=== PATIENT | male | born 1975 | race Caucasian/White ===

== ENCOUNTER 2023-07-29 20:05 | Inpatient (IN) | payer MEDICARE, MEDICAID ==
[~2023-07-29] VITALS: Ht 172.7 cm; Wt 67.7 kg
[~2023-07-29 20:05] MED LIST: ALBUAER3 IN; AMLO1TAB22 PO; AZITTAB PO; CARV12.544 PO; CEPH250C PO; ESCI1TAB37 PO; HYDR50TA47 PO; KEP500T PO; SEVE800T8 PO
[2023-07-29 20:33] LABS: Basophils # (auto) 0.1 10 ^3/uL (0-0.2); Basophils % (auto) 2.6 % (0.0-2.0); Eosinophils # (auto) 0.2 10 ^3/uL (0-0.8); Eosinophils % (auto) 3.2 % (0.0-7.0); Hematocrit 32.9 % (41.0-53.0); Hemoglobin 10.3 g/dL (13.5-17.5); Lymphocytes # (auto) 1.1 10 ^3/uL (0.4-5.4); Lymphocytes % (auto) 20.5 % (10.0-50.0); Mean Corpuscular Hemoglobin 29.9 pg (28.0-32.0); Mean Corpuscular Hgb Conc. 31.3 g/dL (32.0-36.0); Mean Corpuscular Volume 95.6 fL (80.0-100.0); Monocytes # (auto) 0.2 10 ^3/uL (0-1.3); Monocytes % (auto) 4.7 % (0.0-12.0); Neutrophils # (auto) 3.6 10 ^3/uL (1.6-8.6); Nucleated Red Blood Cells % 0.3 %; Red Blood Cells 3.45 10^6/uL (4.5-5.90); Red Cell Distribution Width 17.9 % (11.8-14.3); White Blood Cell 5.2 10^3/uL (4.4-10.8)
[2023-07-29 20:55] LABS: Albumin 4.8 g/dL (3.2-4.8); Alkaline Phosphatase 118 U/L (46-116); Anion Gap 13 (5-15); Aspartate Aminotransferase 24 U/L (13-40); Bilirubin, Total 0.4 mg/dL (0.2-1.0); Blood Urea Nitrogen 54 mg/dL (9-23); Calcium 10.1 mg/dL (8.7-10.4); Carbon Dioxide 22 mmol/L (20-30); Chloride 100 mmol/L (98-107); Glucose 92 mg/dL (74-106); Sodium 135 mmol/L (136-145); Total Protein 8.2 g/dL (5.7-8.2)
[2023-07-29 21:02] LABS: Alanine Aminotransferase < 9 U/L (7-40)
[2023-07-29 21:05] LABS: Potassium 6.4 mmol/L (3.5-5.1)
[2023-07-29] MEDS: ALBUTEROL SULF 2.5 MG/0.5ML(0.5%) NEB SOLN NEB ONE (21:44)
[2023-07-29 21:47] VITALS: O2SAT 96
[2023-07-29] MEDS ORDERED: DOCUSATE SOD 100 MG CAP PO PRN (22:00)
[2023-07-29] MEDS ORDERED: ACETAMINOPHEN 325 MG TAB PO PRN (22:00)
[2023-07-29] MEDS ORDERED: ALBUTEROL SULF 2.5 MG/0.5ML(0.5%) NEB SOLN NEB PRN (22:00)
[2023-07-29] MEDS ORDERED: IPRATROPIUM BROM 0.5 MG/2.5ML INH SOL NEB PRN (22:00)
[2023-07-29 22:02] VITALS: BP 161/92; PULSE 73; RESP 20; TEMP 98.3; O2SAT 97
[2023-07-29] MEDS: SODIUM CHLOR 0.9% PF (SALINE LOCK) 10ML VIAL/SYR IV SCH (22:17)
[2023-07-29] MEDS: SODIUM BICARB 8.4% 50Meq/50ml SYR Vial IV ONE (23:29)
[2023-07-29] MEDS: DEXTROSE (50%) 50ML SYRG IV ONE (23:29)
[2023-07-29] MEDS ORDERED: NITROGLYCERIN 0.4 MG SL TAB SL PRN (23:30)
[2023-07-29] MEDS ORDERED: MORPHINE SULFATE INJ 2 MG/ml SYRG IV PRN (23:30)
[2023-07-29] MEDS: CARVEDILOL 12.5 MG TAB PO SCH (23:31)
[2023-07-29] MEDS: InsuLIN REG 1unit/0.01ml Soln (100units/ml) IV ONE (23:31)
[2023-07-29] MEDS: HYDROcodone-ACET 5/325MG TAB PO PRN (23:45)
[2023-07-29] MEDS: CALCIUM GLUC 1,000mg/50ml-NS 50 ML IV ONE (23:45)
[2023-07-30] VITALS (7 sets, daily range): BP systolic 114–164; BP diastolic 74–111; PULSE 68–81; RESP 12–20; TEMP 36.4; O2SAT 91–98
[2023-07-30] MEDS: levETIRAcetam 500 mg/100ml 100 ML IV SCH (00:13)
[2023-07-30] MEDS: MORPHINE SULFATE INJ 2 MG/ml SYRG IV PRN (02:17)
[2023-07-30] MEDS: ONDANSETRON HCL 4 MG/2 ML VIAL IV PRN (02:19)
[2023-07-30] MEDS: diphenhdrAMINE HCL 50 MG/1 ML VL IV ONE ×2 (04:47→10:22)
[2023-07-30 04:50] LABS: Basophils # (auto) 0.1 10 ^3/uL (0-0.2); Eosinophils # (auto) 0.1 10 ^3/uL (0-0.8); Hemoglobin 8.4 g/dL (13.5-17.5); Lymphocytes # (auto) 0.6 10 ^3/uL (0.4-5.4); Neutrophils % (auto) 72.9 % (37.0-80.0)
[2023-07-30 04:53] LABS: Eosinophils % (auto) 2.6 % (0.0-7.0); Hematocrit 25.9 % (41.0-53.0); Lymphocytes % (auto) 14.4 % (10.0-50.0); Mean Corpuscular Hemoglobin 30.8 pg (28.0-32.0); Mean Corpuscular Hgb Conc. 32.4 g/dL (32.0-36.0); Mean Corpuscular Volume 95.1 fL (80.0-100.0); Monocytes # (auto) 0.3 10 ^3/uL (0-1.3); Monocytes % (auto) 8.1 % (0.0-12.0); Nucleated Red Blood Cells % 0.6 %; Red Blood Cells 2.73 10^6/uL (4.5-5.90); Red Cell Distribution Width 17.4 % (11.8-14.3); White Blood Cell 4.1 10^3/uL (4.4-10.8)
[2023-07-30 05:08] LABS: Albumin 3.9 g/dL (3.2-4.8); Alkaline Phosphatase 89 U/L (46-116); Anion Gap 16 (5-15); Aspartate Aminotransferase 18 U/L (13-40); Bilirubin, Total 0.3 mg/dL (0.2-1.0); Calcium 9.3 mg/dL (8.5-10.1); Carbon Dioxide 23 mmol/L (20-30); Chloride 100 mmol/L (98-107); Glucose 70 mg/dL (74-106); Sodium 139 mmol/L (136-145); Total Protein 6.6 g/dL (5.7-8.2)
[2023-07-30 05:16] LABS: Alanine Aminotransferase < 9 U/L (7-40); Blood Urea Nitrogen 72 mg/dL (9-23)
[2023-07-30] MEDS: SODIUM ZIRCONIUM CYCL 10 GM PAK PO ONE (08:34)
[2023-07-30] MEDS: SODIUM BICARB 8.4% 50Meq/50ml SYR INJ IV ONE (08:35)
[2023-07-30] MEDS: CALCIUM GLUC 1,000mg/50ml-NS 50 ML IV ONE (08:35)
[2023-07-30] MEDS: FAMOTIDINE (10MG/ML) 2ML VL IV SCH (09:22)
[2023-07-30] MEDS: DEXTROSE (50%) 50ML SYRG IV ONE (09:33)
[2023-07-30] MEDS: SEVELAMER 800 MG TAB PO SCH (09:34)
[2023-07-30] MEDS: InsuLIN REG 1unit/0.01ml Soln (100units/ml) IV ONE (09:36)
[2023-07-30] MEDS: B-COMPLEX W/ C & FOLIC ACID(NEPHROVITE TAB) PO SCH (10:19)
[2023-07-30] MEDS: ASPirin 81 mg TAB PO SCH (10:21)
[2023-07-30] MEDS: amLODIPine BESYLATE 5 MG TAB PO SCH (10:21)
[2023-07-30] MEDS ORDERED: SODIUM CHL 0.9% 1000 ML BAG XX ONE (12:00)
[2023-07-31 01:00] VITALS: BP 163/80; PULSE 71; RESP 16; TEMP 97.9; O2SAT 97
[2023-07-31 05:00] VITALS: BP 158/89; PULSE 68; RESP 18; TEMP 98.6; O2SAT 99
[2023-07-31 06:53] LABS: Basophils # (auto) 0.1 10 ^3/uL (0-0.2); Basophils % (auto) 2.8 % (0.0-2.0); Eosinophils # (auto) 0.2 10 ^3/uL (0-0.8); Eosinophils % (auto) 3.6 % (0.0-7.0); Hematocrit 29.7 % (41.0-53.0); Hemoglobin 9.5 g/dL (13.5-17.5); Lymphocytes # (auto) 0.7 10 ^3/uL (0.4-5.4); Lymphocytes % (auto) 15.8 % (10.0-50.0); Mean Corpuscular Hemoglobin 30.6 pg (28.0-32.0); Mean Corpuscular Volume 95.7 fL (80.0-100.0); Monocytes # (auto) 0.3 10 ^3/uL (0-1.3); Neutrophils # (auto) 3.2 10 ^3/uL (1.6-8.6); Neutrophils % (auto) 70.8 % (37.0-80.0); Nucleated Red Blood Cells % 0.3 %; White Blood Cell 4.5 10^3/uL (4.4-10.8)
[2023-07-31] MEDS ORDERED: SODIUM CHL 0.9% 1000 ML BAG XX ONE (07:00)
[2023-07-31 07:04] LABS: Alkaline Phosphatase 99 U/L (46-116); Anion Gap 13 (5-15); BUN/Creatinine Ratio 7.4 (10.0-20.0); Calcium 9.2 mg/dL (8.5-10.1); Carbon Dioxide 28 mmol/L (20-30); Chloride 98 mmol/L (98-107); Glucose 63 mg/dL (74-106); Potassium 5.2 mmol/L (3.5-5.1); Sodium 139 mmol/L (136-145)
[2023-07-31 07:05] LABS: Albumin 4.4 g/dL (3.2-4.8); Aspartate Aminotransferase 28 U/L (13-40)
[2023-07-31 07:06] LABS: Bilirubin, Total 0.4 mg/dL (0.2-1.0); Total Protein 7.5 g/dL (5.7-8.2)
[2023-07-31 07:10] LABS: Alanine Aminotransferase < 9 U/L (7-40); Blood Urea Nitrogen 45 mg/dL (9-23)
[2023-07-31 07:12] VITALS: O2SAT 96
[2023-07-31 08:00] VITALS: BP 175/81; PULSE 65; PULSE 68; RESP 20; TEMP 97.5; O2SAT 94
[2023-07-31] MEDS: hydrALAZINE HCL 20 MG/ML VL IV PRN (08:15)
[2023-07-31 12:00] VITALS: BP 139/78; PULSE 64; RESP 22; TEMP 97.5; O2SAT 95
[2023-07-31] MEDS: diphenhdrAMINE HCL 50 MG/1 ML VL IV ONE ×2 (14:15→15:43)
[2023-07-31 16:00] VITALS: BP 163/77; PULSE 65; RESP 18; TEMP 98.1; O2SAT 92
[2023-07-31] MEDS ORDERED: EPOETIN ALFA-EPBX 10,000 UNIT/1ML VIAL SC ONE (21:00)
== END 2023-07-31 21:30 | disposition home or self-care (01) | DRG 640 ==
LOC: ER 20:05 → TELE 23:27 → TELE-WESTW 07-30 11:00
PROVIDERS: ADMIT Internal Medicine; ATTEND Internal Medicine
PROC: 5A1D70Z Performance of Urinary Filtration, Intermittent, Less than 6 Hours Per Day (ICD-10-PCS; principal; 2023-07-30)
PROC: 5A1D70Z Performance of Urinary Filtration, Intermittent, Less than 6 Hours Per Day (ICD-10-PCS; 2023-07-31)
DX: E87.70 Fluid overload, unspecified (principal); I50.33 Acute on chronic diastolic (congestive) heart failure; N18.6 End stage renal disease; J96.01 Acute respiratory failure with hypoxia; I13.2 Hypertensive heart and chronic kidney disease with heart failure and with stage 5 chronic kidney disease, or end stage renal disease; J81.1 Chronic pulmonary edema; E87.20 Acidosis, unspecified; J44.9 Chronic obstructive pulmonary disease, unspecified; E87.5 Hyperkalemia; G40.909 Epilepsy, unspecified, not intractable, without status epilepticus; I16.0 Hypertensive urgency; D63.1 Anemia in chronic kidney disease; Z86.73 Personal history of transient ischemic attack (TIA), and cerebral infarction without residual deficits; Z99.2 Dependence on renal dialysis; Z91.158 Patient's noncompliance with renal dialysis for other reason; Z88.0 Allergy status to penicillin; Z88.1 Allergy status to other antibiotic agents; I25.2 Old myocardial infarction; Z98.61 Coronary angioplasty status; Z87.891 Personal history of nicotine dependence; Z82.49 Family history of ischemic heart disease and other diseases of the circulatory system
CPT/HCPCS: 36415; 71045; 80053; 82962; 83036; 83880; 84100; 84132; 84484; 85025; 87081; 90935; 93005; 94640; 99291; G0378; J1815; J2405; J3490

== ENCOUNTER 2023-08-12 13:23 | Inpatient (IN) | payer MEDICARE, MEDICAID ==
[2023-08-12] VITALS (7 sets, daily range): BP systolic 101–162; BP diastolic 54–97; PULSE 80–97; RESP 11–20; TEMP 97.8–98.2; O2SAT 94–98
[~2023-08-12] VITALS: Ht 165.1 cm; Wt 64.1 kg
[2023-08-12] MEDS: SALINE 0.65 % NASAL SPRAY 45ML BOTTLE EACHNOSTRI ONE (14:45)
[2023-08-12] MEDS: HYDROcodone-ACET 10/325MG TAB PO ONE (14:45)
[2023-08-12] MEDS: PHENYLEPHRINE HCL 0.5 % NASAL SPRAY 15ML ONE (14:52)
[2023-08-12 15:00] LABS: Basophils # (auto) 0.1 10 ^3/uL (0-0.2); Eosinophils # (auto) 0.1 10 ^3/uL (0-0.8); Lymphocytes # (auto) 0.6 10 ^3/uL (0.4-5.4); Monocytes # (auto) 0.3 10 ^3/uL (0-1.3); Neutrophils # (auto) 2.4 10 ^3/uL (1.6-8.6); Red Cell Distribution Width 16.5 % (11.8-14.3); White Blood Cell 3.5 10^3/uL (4.4-10.8)
[2023-08-12 15:02] LABS: Basophils % (auto) 2.9 % (0.0-2.0); Eosinophils % (auto) 3.3 % (0.0-7.0); Hematocrit 22.2 % (41.0-53.0); Hemoglobin 7.2 g/dL (13.5-17.5); Lymphocytes % (auto) 18.1 % (10.0-50.0); Mean Corpuscular Hemoglobin 30.4 pg (28.0-32.0); Mean Corpuscular Hgb Conc. 32.6 g/dL (32.0-36.0); Mean Corpuscular Volume 93.2 fL (80.0-100.0); Monocytes % (auto) 8.4 % (0.0-12.0); Neutrophils % (auto) 67.3 % (37.0-80.0); Nucleated Red Blood Cells % 0.3 %; Red Blood Cells 2.38 10^6/uL (4.5-5.90)
[2023-08-12 15:17] LABS: INR 1.03 (0.9-1.15); Partial Thromboplastin Time 23.3 SEC (24.5-34.5); Prothrombin Time 10.9 sec (9.3-11.8)
[2023-08-12 15:18] LABS: Albumin 4.1 g/dL (3.2-4.8); Alkaline Phosphatase 103 U/L (46-116); Anion Gap 9 (5-15); Aspartate Aminotransferase 26 U/L (13-40); BUN/Creatinine Ratio 7.1 (10.0-20.0); Blood Urea Nitrogen 30 mg/dL (9-23); Calcium 9.9 mg/dL (8.5-10.1); Carbon Dioxide 33 mmol/L (20-30); Chloride 97 mmol/L (98-107); Glucose 85 mg/dL (74-106); Potassium 4.3 mmol/L (3.5-5.1); Sodium 139 mmol/L (136-145)
[2023-08-12 15:19] LABS: Bilirubin, Total 0.4 mg/dL (0.2-1.0)
[2023-08-12 15:21] LABS: Alanine Aminotransferase < 9 U/L (7-40)
[2023-08-12] MEDS ORDERED: NITROGLYCERIN 0.4 MG SL TAB SL PRN (18:45)
[2023-08-12] MEDS ORDERED: ALBUTEROL SULF HFA 90MCG INH 200DOSE IN PRN (18:45)
[2023-08-12] MEDS ORDERED: MORPHINE SULFATE INJ 2 MG/ml SYRG IV PRN (18:45)
[2023-08-12] MEDS: CYCLOBENZAPRINE HCL 10 MG TAB PO ONE (19:01)
[2023-08-12 19:10] LABS: Hematocrit 21.4 % (41.0-53.0)
[2023-08-12] MEDS: PATIENTS OWN MEDICATION (Sevelamer Carbonate (Renvela) 800 MG) PO SCH (19:11)
[2023-08-12 19:13] LABS: Hemoglobin 6.8 g/dL (13.5-17.5)
[2023-08-12 19:19] LABS: Ferritin 553.6 ng/mL (22-322)
[2023-08-12] MEDS ORDERED: ALBUTEROL SULF 2.5 MG/0.5ML(0.5%) NEB SOLN NEB PRN (19:30)
[2023-08-12] MEDS: FUROSEMIDE 20 MG/2 ML VIAL IV ONE (20:19)
[2023-08-12] MEDS: LORazepam 2MG/ML-1ML VIAL IV ONE (20:19)
[2023-08-12] MEDS: CARVEDILOL 12.5 MG TAB PO SCH (22:13)
[2023-08-13] VITALS (13 sets, daily range): BP systolic 138–192; BP diastolic 74–108; PULSE 60–83; RESP 15–80; TEMP 36.5; O2SAT 92–100
[2023-08-13] MEDS: FLUMAZENIL 0.1 MG/ML INJ 10ML MDV IV ONE (04:31)
[2023-08-13 06:38] LABS: Basophils # (auto) 0.1 10 ^3/uL (0-0.2); Eosinophils # (auto) 0.1 10 ^3/uL (0-0.8); Hemoglobin 7.6 g/dL (13.5-17.5); Monocytes # (auto) 0.3 10 ^3/uL (0-1.3); Neutrophils # (auto) 2.4 10 ^3/uL (1.6-8.6); White Blood Cell 3.5 10^3/uL (4.4-10.8)
[2023-08-13 06:43] LABS: Basophils % (auto) 2.6 % (0.0-2.0); Hematocrit 23.6 % (41.0-53.0); Lymphocytes # (auto) 0.6 10 ^3/uL (0.4-5.4); Lymphocytes % (auto) 17.7 % (10.0-50.0); Mean Corpuscular Hemoglobin 29.8 pg (28.0-32.0); Mean Corpuscular Hgb Conc. 32.4 g/dL (32.0-36.0); Neutrophils % (auto) 67.7 % (37.0-80.0); Nucleated Red Blood Cells % 0.1 %; Red Blood Cells 2.56 10^6/uL (4.5-5.90); Red Cell Distribution Width 15.9 % (11.8-14.3)
[2023-08-13] MEDS ORDERED: PATIENTS OWN MEDICATION (Escitalopram Oxalate 20 MG) PO SCH (10:00)
[2023-08-13] MEDS: amLODIPine BESYLATE 5 MG TAB PO SCH (10:06)
[2023-08-13] MEDS: levETIRAcetam 500 MG TAB PO SCH (10:06)
[2023-08-13] MEDS: CITALOPRAM HYDROBR 20 MG TAB PO SCH (10:06)
[2023-08-13] MEDS: FUROSEMIDE 20 MG/2 ML VIAL IV SCH (10:07)
[2023-08-13 12:12] LABS: Hematocrit 23.2 % (41.0-53.0); Hemoglobin 7.8 g/dL (13.5-17.5)
[2023-08-13 12:44] LABS: Hepatitis B Surface Antigen Negative (Negative)
[2023-08-13 13:05] LABS: Hepatitis C Antibody Negative (Negative)
[2023-08-13 15:23] LABS: % Iron Saturation 39.9 % (20-55)
[2023-08-13 15:40] LABS: Folate (Folic Acid) 20.9 ng/mL (>5.38)
[2023-08-13 16:29] LABS: Hematocrit 23.6 % (41.0-53.0)
[2023-08-13 16:32] LABS: Hemoglobin 7.8 g/dL (13.5-17.5)
[2023-08-13] MEDS ORDERED: SODIUM CHL 0.9% 1000 ML BAG XX ONE (16:58)
[2023-08-13] MEDS ORDERED: hydrALAZINE HCL 20 MG/ML VL IV PRN (20:15)
[2023-08-13] MEDS: EPOETIN ALFA-EPBX 4,000 UNIT/ML VIAL SC ONE (21:24)
[2023-08-13] MEDS: hydrALAZINE HCL 25 MG TAB PO SCH (23:29)
[2023-08-14] VITALS (9 sets, daily range): BP systolic 135–180; BP diastolic 61–94; PULSE 63–70; RESP 16–69; TEMP 97.8–98.8; O2SAT 94–100
[2023-08-14] MEDS: diphenhdrAMINE HCL 25 MG CAP PO ONE (03:32)
[2023-08-14] MEDS ORDERED: SODIUM CHL 0.9% 1000 ML BAG XX ONE (07:00)
[2023-08-14] MEDS: diphenhdrAMINE HCL 50 MG/1 ML VL IV ONE (08:04)
[2023-08-14] MEDS: SEVELAMER 800 MG TAB PO SCH (09:34)
[2023-08-14 12:19] LABS: Basophils # (auto) 0.1 10 ^3/uL (0-0.2); Eosinophils # (auto) 0.1 10 ^3/uL (0-0.8); Lymphocytes # (auto) 0.5 10 ^3/uL (0.4-5.4); Monocytes # (auto) 0.2 10 ^3/uL (0-1.3); Nucleated Red Blood Cells % 0.1 %
[2023-08-14 12:22] LABS: Basophils % (auto) 2.4 % (0.0-2.0); Eosinophils % (auto) 4.1 % (0.0-7.0); Hematocrit 23.7 % (41.0-53.0); Hemoglobin 7.7 g/dL (13.5-17.5); Lymphocytes % (auto) 15.9 % (10.0-50.0); Mean Corpuscular Hemoglobin 30.3 pg (28.0-32.0); Mean Corpuscular Hgb Conc. 32.7 g/dL (32.0-36.0); Mean Corpuscular Volume 92.7 fL (80.0-100.0); Neutrophils % (auto) 69.6 % (37.0-80.0); Red Blood Cells 2.55 10^6/uL (4.5-5.90); White Blood Cell 2.9 10^3/uL (4.4-10.8)
[2023-08-14 12:32] LABS: Albumin 3.8 g/dL (3.2-4.8); Alkaline Phosphatase 89 U/L (46-116); Anion Gap 5 (5-15); Aspartate Aminotransferase 23 U/L (13-40); BUN/Creatinine Ratio 4.2 (10.0-20.0); Blood Urea Nitrogen 9 mg/dL (9-23); Calcium 9.4 mg/dL (8.5-10.1); Carbon Dioxide 33 mmol/L (20-30); Chloride 104 mmol/L (98-107); Glucose 89 mg/dL (74-106); Magnesium 2.1 mg/dL (1.6-2.6); Sodium 142 mmol/L (136-145); Total Protein 6.3 g/dL (5.7-8.2)
[2023-08-14 12:35] LABS: Alanine Aminotransferase < 9 U/L (7-40)
[2023-08-14 12:39] LABS: Bilirubin, Total 0.3 mg/dL (0.2-1.0)
[2023-08-14] MEDS: ACETAMINOPHEN 325 MG TAB PO PRN (18:02)
[2023-08-14] MEDS: HYDROcodone-ACET 5/325MG TAB PO PRN (22:22)
[2023-08-15 01:00] VITALS: BP 169/76; PULSE 64; RESP 18; TEMP 98; O2SAT 98
[2023-08-15 05:00] VITALS: BP 157/76; PULSE 65; RESP 20; TEMP 98; O2SAT 98
[2023-08-15 07:03] LABS: Basophils # (auto) 0.1 10 ^3/uL (0-0.2); Hemoglobin 8.1 g/dL (13.5-17.5); Monocytes # (auto) 0.3 10 ^3/uL (0-1.3); Red Blood Cells 2.68 10^6/uL (4.5-5.90)
[2023-08-15 07:05] LABS: Basophils % (auto) 2.5 % (0.0-2.0); Eosinophils # (auto) 0.2 10 ^3/uL (0-0.8); Lymphocytes # (auto) 0.7 10 ^3/uL (0.4-5.4); Lymphocytes % (auto) 24.6 % (10.0-50.0); Mean Corpuscular Hemoglobin 30.2 pg (28.0-32.0); Mean Corpuscular Hgb Conc. 32.4 g/dL (32.0-36.0); Mean Corpuscular Volume 93.3 fL (80.0-100.0); Monocytes % (auto) 8.8 % (0.0-12.0); Neutrophils # (auto) 1.8 10 ^3/uL (1.6-8.6); Neutrophils % (auto) 59.1 % (37.0-80.0); Red Cell Distribution Width 16.8 % (11.8-14.3)
[2023-08-15 07:10] VITALS: O2SAT 99
[2023-08-15 07:22] LABS: Anion Gap 8 (5-15); Calcium 9.3 mg/dL (8.5-10.1); Carbon Dioxide 31 mmol/L (20-30); Chloride 104 mmol/L (98-107); Potassium 4.5 mmol/L (3.5-5.1); Sodium 143 mmol/L (136-145)
[2023-08-15 07:28] LABS: BUN/Creatinine Ratio 4.7 (10.0-20.0); Blood Urea Nitrogen 20 mg/dL (9-23); Glucose 83 mg/dL (74-106)
[2023-08-15 08:00] VITALS: BP 166/78; PULSE 60; PULSE 73; RESP 18; TEMP 97.7; O2SAT 100
[2023-08-15 09:05] VITALS: BP 166/78; PULSE 73; RESP 18; TEMP 97.7; O2SAT 100
[2023-08-15] MEDS: diphenhdrAMINE HCL 50 MG/1 ML VL IV ONE (11:02)
[2023-08-15 12:30] VITALS: BP 149/70; PULSE 71; RESP 18; TEMP 97.7; O2SAT 94
== END 2023-08-15 16:45 | disposition home or self-care (01) | DRG 150 ==
LOC: ER 13:23 → TELE 18:40 → TELE-WESTW 08-13 09:36
PROVIDERS: ADMIT Internal Medicine Geriatric Medicine; ATTEND Internal Medicine Geriatric Medicine
PROC: 30233N1 Transfusion of Nonautologous Red Blood Cells into Peripheral Vein, Percutaneous Approach (ICD-10-PCS; principal; 2023-08-12)
PROC: 5A1D70Z Performance of Urinary Filtration, Intermittent, Less than 6 Hours Per Day (ICD-10-PCS; 2023-08-13)
PROC: 5A1D70Z Performance of Urinary Filtration, Intermittent, Less than 6 Hours Per Day (ICD-10-PCS; 2023-08-14)
DX: R04.0 Epistaxis (principal); N18.6 End stage renal disease; D62 Acute posthemorrhagic anemia; N25.81 Secondary hyperparathyroidism of renal origin; I13.2 Hypertensive heart and chronic kidney disease with heart failure and with stage 5 chronic kidney disease, or end stage renal disease; I50.42 Chronic combined systolic (congestive) and diastolic (congestive) heart failure; J96.11 Chronic respiratory failure with hypoxia; D63.1 Anemia in chronic kidney disease; J44.9 Chronic obstructive pulmonary disease, unspecified; E87.5 Hyperkalemia; I25.119 Atherosclerotic heart disease of native coronary artery with unspecified angina pectoris; G40.909 Epilepsy, unspecified, not intractable, without status epilepticus; I16.0 Hypertensive urgency; Z99.2 Dependence on renal dialysis; Z99.81 Dependence on supplemental oxygen; Z88.0 Allergy status to penicillin; Z86.73 Personal history of transient ischemic attack (TIA), and cerebral infarction without residual deficits; Z98.61 Coronary angioplasty status; I25.2 Old myocardial infarction; Z82.49 Family history of ischemic heart disease and other diseases of the circulatory system; Z88.8 Allergy status to other drugs, medicaments and biological substances
CPT/HCPCS: 36415; 71045; 80048; 80053; 82607; 82728; 82746; 82962; 83540; 83550; 83615; 83735; 83880; 84484; 85014; 85018; 85025; 85045; 85384; 85610; 85730; 86803; 86850; 86900; 86901; 86920; 87081; 87340; 90935; G0378

== ENCOUNTER 2023-08-20 12:09 | Inpatient (IN) | payer MEDICARE, MEDICAID ==
[~2023-08-20] VITALS: Ht 172.7 cm; Wt 61.6 kg
[~2023-08-20 12:09] MED LIST changes: -AZITTAB PO; -CEPH250C PO
[2023-08-20] MEDS ORDERED: SODIUM CHLORIDE 0.9% 1,000 ML IV ONE ×2 (14:00)
[2023-08-20 14:10] LABS: Basophils # (auto) 0.1 10 ^3/uL (0-0.2); Basophils % (auto) 2.9 % (0.0-2.0); Eosinophils # (auto) 0.1 10 ^3/uL (0-0.8); Eosinophils % (auto) 3.9 % (0.0-7.0); Hematocrit 24.1 % (41.0-53.0); Hemoglobin 7.4 g/dL (13.5-17.5); Lymphocytes # (auto) 0.8 10 ^3/uL (0.4-5.4); Lymphocytes % (auto) 21.8 % (10.0-50.0); Mean Corpuscular Hemoglobin 29.4 pg (28.0-32.0); Mean Corpuscular Hgb Conc. 30.8 g/dL (32.0-36.0); Mean Corpuscular Volume 95.5 fL (80.0-100.0); Monocytes # (auto) 0.3 10 ^3/uL (0-1.3); Neutrophils # (auto) 2.4 10 ^3/uL (1.6-8.6); Neutrophils % (auto) 64.4 % (37.0-80.0); Nucleated Red Blood Cells % 0.1 %; Red Blood Cells 2.52 10^6/uL (4.5-5.90); Red Cell Distribution Width 17.8 % (11.8-14.3); White Blood Cell 3.7 10^3/uL (4.4-10.8)
[2023-08-20 14:26] LABS: INR 1.05 (0.9-1.15); Partial Thromboplastin Time 29.3 SEC (24.5-34.5); Prothrombin Time 11.1 sec (9.3-11.8)
[2023-08-20 15:31] LABS: Albumin 4.1 g/dL (3.2-4.8); Alkaline Phosphatase 92 U/L (46-116); Anion Gap 10 (5-15); Aspartate Aminotransferase 21 U/L (13-40); BUN/Creatinine Ratio 9.8 (10.0-20.0); Blood Urea Nitrogen 63 mg/dL (9-23); Calcium 9.1 mg/dL (8.5-10.1); Carbon Dioxide 28 mmol/L (20-30); Chloride 99 mmol/L (98-107); Glucose 78 mg/dL (74-106); Sodium 137 mmol/L (136-145)
[2023-08-20 15:32] LABS: Alanine Aminotransferase < 9 U/L (7-40); Bilirubin, Total 0.3 mg/dL (0.2-1.0); Total Protein 6.9 g/dL (5.7-8.2)
[2023-08-20 15:36] LABS: Potassium 5.7 mmol/L (3.5-5.1)
[2023-08-20] MEDS ORDERED: ACETAMINOPHEN 325 MG TAB PO PRN (16:30)
[2023-08-20] MEDS ORDERED: DOCUSATE SOD 100 MG CAP PO PRN (16:30)
[2023-08-20] MEDS ORDERED: MORPHINE SULFATE INJ 2 MG/ml SYRG IV PRN (16:30)
[2023-08-20] MEDS ORDERED: NITROGLYCERIN 0.4 MG SL TAB SL PRN (16:30)
[2023-08-20] MEDS: ALBUTEROL SULF 2.5 MG/0.5ML(0.5%) NEB SOLN NEB ONE (16:59)
[2023-08-20] MEDS ORDERED: IPRATROPIUM BROM 0.5 MG/2.5ML INH SOL NEB PRN (17:45)
[2023-08-20] MEDS ORDERED: ALBUTEROL SULF 2.5 MG/0.5ML(0.5%) NEB SOLN NEB PRN (17:45)
[2023-08-20 19:20] VITALS: O2SAT 99
[2023-08-20 19:45] VITALS: PULSE 71; RESP 20; O2SAT 98
[2023-08-20 20:00] VITALS: BP 157/85; PULSE 77; RESP 18; TEMP 98.6; O2SAT 99
[2023-08-20] MEDS: CALCIUM GLUC 1,000mg/50ml-NS 50 ML IV ONE (21:32)
[2023-08-20] MEDS: SODIUM ZIRCONIUM CYCL 10 GM PAK PO ONE (21:38)
[2023-08-20] MEDS: OXYMETAZOLINE HCL 0.05 % NASAL SPRAY 15ML EACHNOSTRI ONE (21:39)
[2023-08-20] MEDS: SEVELAMER 800 MG TAB PO SCH (21:45)
[2023-08-20] MEDS: PANTOPRAZOLE 40 MG/10 ML VIAL INJ IV ONE (21:46)
[2023-08-20] MEDS: HYDROcodone-ACET 5/325MG TAB PO PRN (21:46)
[2023-08-20] MEDS: FUROSEMIDE 40 MG/4 ML VIAL IV ONE (21:47)
[2023-08-20] MEDS: diphenhdrAMINE HCL 50 MG/1 ML VL IV ONE (21:48)
[2023-08-20] MEDS: CARVEDILOL 12.5 MG TAB PO SCH (22:43)
[2023-08-20] MEDS: hydrALAZINE HCL 25 MG TAB PO SCH (22:44)
[2023-08-20 23:36] LABS: Hematocrit 19.7 % (41.0-53.0); Hemoglobin 6.3 g/dL (13.5-17.5)
[2023-08-21] VITALS (14 sets, daily range): BP systolic 127–183; BP diastolic 74–95; PULSE 66–96; RESP 16–22; TEMP 96.9–98.6; O2SAT 91–98
[2023-08-21] MEDS: ONDANSETRON HCL 4 MG/2 ML VIAL IV PRN (05:52)
[2023-08-21] MEDS: MORPHINE SULFATE INJ 2 MG/ml SYRG IV PRN (05:53)
[2023-08-21 09:14] LABS: Basophils # (auto) 0.1 10 ^3/uL (0-0.2); Eosinophils # (auto) 0.1 10 ^3/uL (0-0.8); Lymphocytes # (auto) 0.7 10 ^3/uL (0.4-5.4); Monocytes # (auto) 0.2 10 ^3/uL (0-1.3); Neutrophils # (auto) 2.5 10 ^3/uL (1.6-8.6); Nucleated Red Blood Cells % 0.1 %
[2023-08-21 09:16] LABS: Basophils % (auto) 2.7 % (0.0-2.0); Eosinophils % (auto) 2.9 % (0.0-7.0); Hematocrit 19.4 % (41.0-53.0); Lymphocytes % (auto) 18.4 % (10.0-50.0); Mean Corpuscular Hemoglobin 30.3 pg (28.0-32.0); Mean Corpuscular Hgb Conc. 33.1 g/dL (32.0-36.0); Mean Corpuscular Volume 91.5 fL (80.0-100.0); Monocytes % (auto) 6.6 % (0.0-12.0); Neutrophils % (auto) 69.4 % (37.0-80.0); Red Blood Cells 2.13 10^6/uL (4.5-5.90); Red Cell Distribution Width 16.7 % (11.8-14.3); White Blood Cell 3.6 10^3/uL (4.4-10.8)
[2023-08-21 09:21] LABS: Hemoglobin 6.4 g/dL (13.5-17.5)
[2023-08-21 09:32] LABS: Alkaline Phosphatase 71 U/L (46-116); Anion Gap 10 (5-15); Aspartate Aminotransferase 14 U/L (13-40); BUN/Creatinine Ratio 12.1 (10.0-20.0); Calcium 8.8 mg/dL (8.5-10.1); Carbon Dioxide 29 mmol/L (20-30); Chloride 101 mmol/L (98-107); Glucose 80 mg/dL (74-106); Sodium 140 mmol/L (136-145)
[2023-08-21 09:33] LABS: Albumin 3.5 g/dL (3.2-4.8); Bilirubin, Total 0.3 mg/dL (0.2-1.0); Total Protein 5.7 g/dL (5.7-8.2)
[2023-08-21 09:42] LABS: Platelet Estimate Decreased
[2023-08-21 09:45] LABS: Stomatocytes Few
[2023-08-21 10:00] LABS: Alanine Aminotransferase < 9 U/L (7-40)
[2023-08-21] MEDS ORDERED: amLODIPine BESYLATE 5 MG TAB PO SCH (10:00)
[2023-08-21 10:01] LABS: Blood Urea Nitrogen 91 mg/dL (9-23)
[2023-08-21] MEDS: CITALOPRAM HYDROBR 20 MG TAB PO SCH (11:04)
[2023-08-21] MEDS: PANTOPRAZOLE 40 MG/10 ML VIAL INJ IV SCH (11:05)
[2023-08-21] MEDS: levETIRAcetam 500 MG TAB PO SCH (11:05)
[2023-08-21] MEDS: PANTOPRAZOLE 40 MG TAB PO ONE (11:30)
[2023-08-21] MEDS: SODIUM ZIRCONIUM CYCL 10 GM PAK PO ONE (12:45)
[2023-08-21] MEDS ORDERED: SODIUM CHL 0.9% 1000 ML BAG XX ONE (13:15)
[2023-08-21] MEDS: hydrALAZINE HCL 25 MG TAB PO SCH (14:00)
[2023-08-21 15:15] LABS: Hemoglobin 6.9 g/dL (13.5-17.5)
[2023-08-21] MEDS: LORazepam 0.5 MG TAB PO ONE (20:22)
[2023-08-21] MEDS: EPOETIN ALFA-EPBX 10,000 UNIT/1ML VIAL SC ONE (21:15)
[2023-08-21] MEDS: CARVEDILOL 12.5 MG TAB PO SCH (21:16)
[2023-08-22] VITALS (14 sets, daily range): BP systolic 100–147; BP diastolic 53–78; PULSE 62–107; RESP 14–22; TEMP 97.4–98.3; O2SAT 95–100
[2023-08-22 06:27] LABS: Basophils # (auto) 0.1 10 ^3/uL (0-0.2); Eosinophils # (auto) 0.1 10 ^3/uL (0-0.8); Lymphocytes # (auto) 0.6 10 ^3/uL (0.4-5.4); Monocytes # (auto) 0.2 10 ^3/uL (0-1.3); Nucleated Red Blood Cells % 0.1 %
[2023-08-22 06:31] LABS: Basophils % (auto) 2.6 % (0.0-2.0); Eosinophils % (auto) 3.4 % (0.0-7.0); Hematocrit 20.4 % (41.0-53.0); Lymphocytes % (auto) 18.3 % (10.0-50.0); Mean Corpuscular Hemoglobin 30.2 pg (28.0-32.0); Mean Corpuscular Hgb Conc. 33.2 g/dL (32.0-36.0); Mean Corpuscular Volume 90.8 fL (80.0-100.0); Monocytes % (auto) 7.2 % (0.0-12.0); Neutrophils # (auto) 2.1 10 ^3/uL (1.6-8.6); Neutrophils % (auto) 68.5 % (37.0-80.0); Red Blood Cells 2.25 10^6/uL (4.5-5.90); Red Cell Distribution Width 15.9 % (11.8-14.3); White Blood Cell 3.1 10^3/uL (4.4-10.8)
[2023-08-22 06:39] LABS: Chloride 100 mmol/L (98-107); Potassium 4.5 mmol/L (3.5-5.1); Sodium 138 mmol/L (136-145)
[2023-08-22 06:40] LABS: Anion Gap 7 (5-15); Carbon Dioxide 31 mmol/L (20-30); Hemoglobin 6.8 g/dL (13.5-17.5)
[2023-08-22 06:45] LABS: BUN/Creatinine Ratio 8.9 (10.0-20.0); Glucose 85 mg/dL (74-106)
[2023-08-22 06:50] LABS: Blood Urea Nitrogen 47 mg/dL (9-23)
[2023-08-22 10:51] LABS: % Iron Saturation 17.8 % (20-55)
[2023-08-22] MEDS: amLODIPine BESYLATE 5 MG TAB PO SCH (11:29)
[2023-08-22] MEDS: PANTOPRAZOLE 40 MG TAB PO SCH (11:29)
[2023-08-22] MEDS: diphenhdrAMINE HCL 50 MG/1 ML VL IM ONE (13:40)
[2023-08-22] MEDS ORDERED: MORPHINE SULFATE 4 MG/ML SYR/VIAL IV PRN (20:30)
[2023-08-22] MEDS: MORPHINE SULFATE 4 MG/ML SYR/VIAL IV PRN (21:40)
[2023-08-23] VITALS (8 sets, daily range): BP systolic 113–147; BP diastolic 56–76; PULSE 64–77; RESP 16–20; TEMP 97.3–98.4; O2SAT 97–100
[2023-08-23] MEDS: SODIUM CHL 0.9% 1000 ML BAG XX ONE (08:35)
[2023-08-23 09:00] LABS: Basophils # (auto) 0.1 10 ^3/uL (0-0.2); Eosinophils # (auto) 0.2 10 ^3/uL (0-0.8); Hemoglobin 7.5 g/dL (13.5-17.5); Mean Corpuscular Hemoglobin 30.4 pg (28.0-32.0); Monocytes # (auto) 0.4 10 ^3/uL (0-1.3)
[2023-08-23 09:02] LABS: Basophils % (auto) 1.8 % (0.0-2.0); Eosinophils % (auto) 3.6 % (0.0-7.0); Hematocrit 22.5 % (41.0-53.0); Lymphocytes # (auto) 0.6 10 ^3/uL (0.4-5.4); Lymphocytes % (auto) 12.9 % (10.0-50.0); Mean Corpuscular Hgb Conc. 33.3 g/dL (32.0-36.0); Mean Corpuscular Volume 91.3 fL (80.0-100.0); Monocytes % (auto) 7.7 % (0.0-12.0); Neutrophils # (auto) 3.7 10 ^3/uL (1.6-8.6); Red Blood Cells 2.46 10^6/uL (4.5-5.90); Red Cell Distribution Width 15.4 % (11.8-14.3)
[2023-08-23 09:07] LABS: Chloride 101 mmol/L (98-107); Potassium 5.4 mmol/L (3.5-5.1); Sodium 138 mmol/L (136-145)
[2023-08-23 09:08] LABS: Anion Gap 7 (5-15); Calcium 8.4 mg/dL (8.5-10.1); Carbon Dioxide 30 mmol/L (20-30)
[2023-08-23 09:13] LABS: BUN/Creatinine Ratio 8.4 (10.0-20.0); Glucose 87 mg/dL (74-106)
[2023-08-23 09:17] LABS: Blood Urea Nitrogen 59 mg/dL (9-23)
[2023-08-23] MEDS: MUPIROCIN 2% OINT 15gm or 22gm FOR MRSA NARES EACHNOSTRI SCH (10:00)
[2023-08-23] MEDS: diphenhdrAMINE HCL 50 MG/1 ML VL IV PRN (10:16)
[2023-08-23] MEDS: IRON SUCROSE COMPLEX 100 ML IV SCH (12:20)
[2023-08-23] MEDS ORDERED: EPOETIN ALFA-EPBX 10,000 UNIT/1ML VIAL SC ONE (21:00)
== END 2023-08-23 17:50 | disposition home or self-care (01) | DRG 813 ==
LOC: ER 12:09 → TELE 16:29 → TELE-CENTR 08-21 10:21
PROVIDERS: ADMIT Internal Medicine Geriatric Medicine; ATTEND Internal Medicine Geriatric Medicine
PROC: 30233N1 Transfusion of Nonautologous Red Blood Cells into Peripheral Vein, Percutaneous Approach (ICD-10-PCS; principal; 2023-08-21)
PROC: 5A1D70Z Performance of Urinary Filtration, Intermittent, Less than 6 Hours Per Day (ICD-10-PCS; 2023-08-21)
PROC: 05HC33Z Insertion of Infusion Device into Left Basilic Vein, Percutaneous Approach (ICD-10-PCS; 2023-08-21)
PROC: B54NZZA Ultrasonography of Left Upper Extremity Veins, Guidance (ICD-10-PCS; 2023-08-21)
PROC: 2Y41X5Z Packing of Nasal Region using Packing Material (ICD-10-PCS; 2023-08-21)
PROC: 5A1D70Z Performance of Urinary Filtration, Intermittent, Less than 6 Hours Per Day (ICD-10-PCS; 2023-08-23)
DX: D68.32 Hemorrhagic disorder due to extrinsic circulating anticoagulants (principal); I50.43 Acute on chronic combined systolic (congestive) and diastolic (congestive) heart failure; N18.6 End stage renal disease; I13.2 Hypertensive heart and chronic kidney disease with heart failure and with stage 5 chronic kidney disease, or end stage renal disease; N25.81 Secondary hyperparathyroidism of renal origin; R04.0 Epistaxis; T45.515A Adverse effect of anticoagulants, initial encounter; D63.1 Anemia in chronic kidney disease; I25.10 Atherosclerotic heart disease of native coronary artery without angina pectoris; E87.5 Hyperkalemia; J44.9 Chronic obstructive pulmonary disease, unspecified; Z99.2 Dependence on renal dialysis; Z86.73 Personal history of transient ischemic attack (TIA), and cerebral infarction without residual deficits; I25.2 Old myocardial infarction; Z88.1 Allergy status to other antibiotic agents; Z88.0 Allergy status to penicillin; Z88.8 Allergy status to other drugs, medicaments and biological substances; Z87.891 Personal history of nicotine dependence; Z98.61 Coronary angioplasty status; E87.6 Hypokalemia
CPT/HCPCS: 36415; 36430; 80048; 80053; 82270; 83010; 83540; 83550; 83615; 83880; 84484; 85014; 85018; 85025; 85045; 85610; 85730; 86850; 86900; 86901; 86922; 87081; 90935; 93005; 94640; C9113; G0378; J1756; J2405

== ENCOUNTER 2023-09-25 15:56 | Emergency (ER) | payer MEDICARE, MEDICAID ==
[~2023-09-25] VITALS: Ht 172.7 cm; Wt 63.6 kg
[2023-09-25 17:36] LABS: Basophils # (auto) 0.1 10 ^3/uL (0-0.2); Basophils % (auto) 2.6 % (0.0-2.0); Eosinophils # (auto) 0.2 10 ^3/uL (0-0.8); Eosinophils % (auto) 4.5 % (0.0-7.0); Hematocrit 31.5 % (41.0-53.0); Hemoglobin 10.1 g/dL (13.5-17.5); Lymphocytes # (auto) 0.6 10 ^3/uL (0.4-5.4); Lymphocytes % (auto) 17.2 % (10.0-50.0); Mean Corpuscular Hemoglobin 28.6 pg (28.0-32.0); Mean Corpuscular Volume 89.4 fL (80.0-100.0); Monocytes # (auto) 0.3 10 ^3/uL (0-1.3); Monocytes % (auto) 8.6 % (0.0-12.0); Neutrophils # (auto) 2.5 10 ^3/uL (1.6-8.6); Neutrophils % (auto) 67.1 % (37.0-80.0); Nucleated Red Blood Cells % 0.2 %; Red Blood Cells 3.53 10^6/uL (4.5-5.90); Red Cell Distribution Width 16.6 % (11.8-14.3); White Blood Cell 3.7 10^3/uL (4.4-10.8)
[2023-09-25 17:51] LABS: INR 1.07 (0.9-1.15); Prothrombin Time 11.3 sec (9.3-11.8)
[2023-09-25 18:00] LABS: Albumin 4.2 g/dL (3.2-4.8); Alkaline Phosphatase 119 U/L (46-116); Anion Gap 6 (5-15); Aspartate Aminotransferase 22 U/L (13-40); BUN/Creatinine Ratio 6.8 (10.0-20.0); Blood Urea Nitrogen 23 mg/dL (9-23); Calcium 9.6 mg/dL (8.5-10.1); Carbon Dioxide 32 mmol/L (20-30); Chloride 97 mmol/L (98-107); Glucose 60 mg/dL (74-106); Potassium 4.2 mmol/L (3.5-5.1); Sodium 135 mmol/L (136-145)
[2023-09-25 18:01] LABS: Alanine Aminotransferase < 9 U/L (7-40); Bilirubin, Total 0.4 mg/dL (0.2-1.0); Total Protein 7.1 g/dL (5.7-8.2)
[2023-09-25] MEDS: KETOROLAC TROMETH 30 MG/ML 1ML VIAL IM ONE (18:54)
[2023-09-25] MEDS: SODIUM CHLORIDE 0.9% 1,000 ML IV ONE (18:55)
[2023-09-25] MEDS: HYDROcodone-ACET 5/325MG TAB PO ONE (19:00)
[2023-09-25] MEDS: SODIUM CHLORIDE 0.9% 500 ML IV ONE (20:00)
[2023-09-25] MEDS ORDERED: D5W/SOD CHLO 0.9% 1,000 ML IV ONE (20:00)
[2023-09-25 21:00] VITALS: BP 135/78; PULSE 78; RESP 20; TEMP 98.4; O2SAT 95
[2023-09-25] MEDS: diphenhdrAMINE HCL 50 MG/1 ML VL IM ONE (21:09)
== END 2023-09-25 23:14 | disposition home or self-care (01) ==
LOC: ER 15:56 → EDBD 15:56 → ER 21:35
DX: R04.0 Epistaxis (principal); I13.2 Hypertensive heart and chronic kidney disease with heart failure and with stage 5 chronic kidney disease, or end stage renal disease; N18.6 End stage renal disease; I50.9 Heart failure, unspecified; R25.3 Fasciculation; J44.9 Chronic obstructive pulmonary disease, unspecified; Z99.2 Dependence on renal dialysis; Z87.891 Personal history of nicotine dependence; Z86.73 Personal history of transient ischemic attack (TIA), and cerebral infarction without residual deficits; Z88.0 Allergy status to penicillin; Z88.1 Allergy status to other antibiotic agents
CPT/HCPCS: 36415; 70486; 71045; 80053; 85025; 85610; 85730; 96372; 99285; J1200

== ENCOUNTER 2023-10-14 15:49 | Inpatient (IN) | payer MEDICARE, MEDICAID ==
[~2023-10-14] VITALS: Ht 172.7 cm; Wt 64.8 kg
[2023-10-14] MEDS: ONDANSETRON ODT 4 MG TAB PO ONE (17:07)
[2023-10-14] MEDS: MECLIZINE HCL 25 MG TAB PO ONE (17:09)
[2023-10-14 17:11] VITALS: PULSE 85; RESP 16; O2SAT 96
[2023-10-14 17:23] LABS: Basophils # (auto) 0.1 10 ^3/uL (0-0.2); Basophils % (auto) 2.4 % (0.0-2.0); Eosinophils # (auto) 0.2 10 ^3/uL (0-0.8); Eosinophils % (auto) 3.7 % (0.0-7.0); Hematocrit 33.9 % (41.0-53.0); Hemoglobin 10.9 g/dL (13.5-17.5); Lymphocytes # (auto) 0.8 10 ^3/uL (0.4-5.4); Lymphocytes % (auto) 16.2 % (10.0-50.0); Mean Corpuscular Hemoglobin 28.2 pg (28.0-32.0); Mean Corpuscular Hgb Conc. 32.1 g/dL (32.0-36.0); Monocytes # (auto) 0.4 10 ^3/uL (0-1.3); Monocytes % (auto) 8.5 % (0.0-12.0); Neutrophils # (auto) 3.5 10 ^3/uL (1.6-8.6); Neutrophils % (auto) 69.2 % (37.0-80.0); Red Blood Cells 3.86 10^6/uL (4.5-5.90); Red Cell Distribution Width 17.3 % (11.8-14.3); White Blood Cell 5.1 10^3/uL (4.4-10.8)
[2023-10-14 17:48] LABS: Alanine Aminotransferase 10 U/L (7-40); Albumin 4.1 g/dL (3.2-4.8); Alkaline Phosphatase 130 U/L (46-116); Anion Gap 11 (5-15); Aspartate Aminotransferase 25 U/L (13-40); BUN/Creatinine Ratio 6.6 (10.0-20.0); Bilirubin, Total 0.3 mg/dL (0.2-1.0); Blood Urea Nitrogen 43 mg/dL (9-23); Calcium 9.6 mg/dL (8.7-10.4); Carbon Dioxide 27 mmol/L (20-30); Chloride 97 mmol/L (98-107); Glucose 84 mg/dL (74-106); Lipase 40 U/L (12-53); Sodium 135 mmol/L (136-145)
[2023-10-14 18:16] LABS: Potassium 6.4 mmol/L (3.5-5.1)
[2023-10-14] MEDS: CALCIUM GLUC 1,000mg/50ml-NS 50 ML IV ONE (18:45)
[2023-10-14] MEDS: ALBUTEROL SULF 2.5 MG/0.5ML(0.5%) NEB SOLN NEB ONE (19:02)
[2023-10-14] MEDS ORDERED: ONDANSETRON HCL 4 MG/2 ML VIAL IV PRN (21:30)
[2023-10-14] MEDS ORDERED: ALBUTEROL SULF 2.5 MG/0.5ML(0.5%) NEB SOLN NEB PRN (21:30)
[2023-10-14] MEDS ORDERED: TEMAZEPAM 15 MG CAP PO PRN (21:30)
[2023-10-14] MEDS ORDERED: NITROGLYCERIN 0.4 MG SL TAB SL PRN (21:45)
[2023-10-14 21:50] VITALS: PULSE 74; RESP 19; O2SAT 96
[2023-10-14 22:34] VITALS: BP 140/98; PULSE 68; RESP 18; TEMP 98.4; O2SAT 94
[2023-10-14] MEDS: SODIUM ZIRCONIUM CYCL 10 GM PAK PO ONE (23:18)
[2023-10-14] MEDS: levETIRAcetam 500 MG TAB PO SCH (23:18)
[2023-10-14] MEDS: diphenhdrAMINE HCL 50 MG/1 ML VL IV ONE (23:19)
[2023-10-14] MEDS: FUROSEMIDE 40 MG/4 ML VIAL IV ONE (23:19)
[2023-10-14] MEDS: HYDROmorphone HCL 2 MG/ML VL/or syr IV ONE (23:21)
[2023-10-15] VITALS (12 sets, daily range): BP systolic 142–200; BP diastolic 71–94; PULSE 68–86; RESP 16–20; O2SAT 94–100
[2023-10-15 06:18] LABS: Anion Gap 11 (5-15); Calcium 9.8 mg/dL (8.7-10.4); Carbon Dioxide 29 mmol/L (20-30); Chloride 96 mmol/L (98-107); Potassium 5.5 mmol/L (3.5-5.1); Sodium 136 mmol/L (136-145)
[2023-10-15 06:22] LABS: Basophils # (auto) 0.1 10 ^3/uL (0-0.2); Basophils % (auto) 1.4 % (0.0-2.0); Eosinophils # (auto) 0.2 10 ^3/uL (0-0.8); Eosinophils % (auto) 2.1 % (0.0-7.0); Hematocrit 33.4 % (41.0-53.0); Lymphocytes % (auto) 12.9 % (10.0-50.0); Mean Corpuscular Hemoglobin 28.9 pg (28.0-32.0); Mean Corpuscular Hgb Conc. 32.8 g/dL (32.0-36.0); Monocytes # (auto) 0.5 10 ^3/uL (0-1.3); Monocytes % (auto) 6.8 % (0.0-12.0); Neutrophils # (auto) 6.2 10 ^3/uL (1.6-8.6); Neutrophils % (auto) 76.8 % (37.0-80.0); Nucleated Red Blood Cells % 0.1 %; White Blood Cell 8.1 10^3/uL (4.4-10.8)
[2023-10-15 06:24] LABS: BUN/Creatinine Ratio 6.3 (10.0-20.0); Blood Urea Nitrogen 45 mg/dL (9-23); Glucose 109 mg/dL (74-106)
[2023-10-15] MEDS: hydrALAZINE HCL 20 MG/ML VL IV PRN (06:30)
[2023-10-15] MEDS: SODIUM ZIRCONIUM CYCL 10 GM PAK PO ONE (07:32)
[2023-10-15 09:07] LABS: Base Excess -0.2 mmol/L (-2.0-2.0)
[2023-10-15] MEDS: SEVELAMER 800 MG TAB PO SCH (09:46)
[2023-10-15] MEDS: hydrALAZINE HCL 25 MG TAB PO SCH (10:00)
[2023-10-15] MEDS: SODIUM CHL 0.9% 1000 ML BAG XX ONE (11:30)
[2023-10-15] MEDS: IPRATROPIUM BROM 0.5 MG/2.5ML INH SOL NEB SCH (12:00)
[2023-10-15] MEDS: ALBUTEROL SULF 2.5 MG/0.5ML(0.5%) NEB SOLN NEB SCH (12:00)
[2023-10-15 12:47] LABS: Hepatitis B Surface Antigen Negative (Negative)
[2023-10-15 13:08] LABS: Hepatitis A Ab IgM Negative; Hepatitis B Core IgM Negative
[2023-10-15 13:09] LABS: Hepatitis C Antibody Negative (Negative)
[2023-10-15] MEDS: FUROSEMIDE 20 MG/2 ML VIAL IV SCH (15:27)
[2023-10-15] MEDS: AZITHROMYCIN 500MG/ 250ML 250 ML IV SCH (15:31)
[2023-10-15 15:32] LABS: Base Excess 6.9 mmol/L (-2.0-2.0)
[2023-10-15] MEDS: amLODIPine BESYLATE 5 MG TAB PO SCH (15:33)
[2023-10-15] MEDS: ACETAMINOPHEN 325 MG TAB PO PRN (15:42)
[2023-10-15 19:37] LABS: Urine Bacteria MANY /hpf (None Seen); Urine Blood 3+ /uL (Negative); Urine Clarity Ex.Turbid (Clear); Urine Color Colorless (Yellow); Urine Protein, UAD 1+ (Negative); Urine Specific Gravity 1.005 (1.001-1.035); Urine Urobilinogen Normal (Negative); Urine WBC 157 /hpf (0 - 3); Urine WBC Clumps PRESENT /hpf (None Seen)
[2023-10-16] VITALS (11 sets, daily range): BP systolic 129–158; BP diastolic 82–104; PULSE 54–80; RESP 10–19; TEMP 97.8–98.2; O2SAT 90–100
[2023-10-16 05:52] LABS: Chloride 99 mmol/L (98-107); Potassium 4.2 mmol/L (3.5-5.1); Sodium 138 mmol/L (136-145)
[2023-10-16 05:53] LABS: Anion Gap 14 (5-15); Basophils # (auto) 0.1 10 ^3/uL (0-0.2); Basophils % (auto) 2.6 % (0.0-2.0); Carbon Dioxide 25 mmol/L (20-30); Eosinophils # (auto) 0.1 10 ^3/uL (0-0.8); Eosinophils % (auto) 2.9 % (0.0-7.0); Hematocrit 29.7 % (41.0-53.0); Hemoglobin 9.6 g/dL (13.5-17.5); Lymphocytes # (auto) 0.4 10 ^3/uL (0.4-5.4); Lymphocytes % (auto) 14.1 % (10.0-50.0); Mean Corpuscular Hemoglobin 28.5 pg (28.0-32.0); Mean Corpuscular Hgb Conc. 32.4 g/dL (32.0-36.0); Mean Corpuscular Volume 87.9 fL (80.0-100.0); Monocytes # (auto) 0.2 10 ^3/uL (0-1.3); Monocytes % (auto) 6.5 % (0.0-12.0); Neutrophils # (auto) 2.3 10 ^3/uL (1.6-8.6); Neutrophils % (auto) 73.9 % (37.0-80.0); Nucleated Red Blood Cells % 0.2 %; Red Blood Cells 3.38 10^6/uL (4.5-5.90); Red Cell Distribution Width 16.5 % (11.8-14.3); White Blood Cell 3.2 10^3/uL (4.4-10.8)
[2023-10-16 05:54] LABS: Calcium 9.6 mg/dL (8.7-10.4)
[2023-10-16 05:58] LABS: BUN/Creatinine Ratio 4.2 (10.0-20.0); Blood Urea Nitrogen 22 mg/dL (9-23); Glucose 77 mg/dL (74-106)
[2023-10-16] MEDS: SODIUM CHL 0.9% 1000 ML BAG XX ONE (07:00)
[2023-10-16] MEDS: cefTRIAXone 1GM/50ML D5W 50 ML IV SCH (09:00)
[2023-10-16 10:16] LABS: Rapid Influenza A Negative (Negative); Rapid Influenza B Negative (Negative)
[2023-10-16] MEDS: CARVEDILOL 12.5 MG TAB PO SCH (10:29)
[2023-10-16 10:33] LABS: COVID19 ANTIGEN SOFIA FIA NEGATIVE (NEGATIVE)
[2023-10-16] MEDS: diphenhdrAMINE HCL 25 MG CAP PO PRN (15:29)
[2023-10-16] MEDS: MORPHINE SULFATE INJ 2 MG/ml SYRG IV PRN ×2 (15:31→22:05)
[2023-10-16] MEDS ORDERED: EPOETIN ALFA-EPBX 4,000 UNIT/ML VIAL SC ONE (21:00)
[2023-10-17] VITALS (14 sets, daily range): BP systolic 122–198; BP diastolic 70–97; PULSE 64–80; RESP 16–18; TEMP 36.4; O2SAT 93–100
[2023-10-17 07:16] LABS: Basophils # (auto) 0.1 10 ^3/uL (0-0.2); Basophils % (auto) 2.5 % (0.0-2.0); Eosinophils # (auto) 0.2 10 ^3/uL (0-0.8); Eosinophils % (auto) 5.4 % (0.0-7.0); Hematocrit 31.8 % (41.0-53.0); Lymphocytes # (auto) 0.7 10 ^3/uL (0.4-5.4); Lymphocytes % (auto) 20.3 % (10.0-50.0); Mean Corpuscular Hgb Conc. 31.6 g/dL (32.0-36.0); Mean Corpuscular Volume 88.5 fL (80.0-100.0); Monocytes # (auto) 0.3 10 ^3/uL (0-1.3); Monocytes % (auto) 9.2 % (0.0-12.0); Neutrophils # (auto) 2.1 10 ^3/uL (1.6-8.6); Neutrophils % (auto) 62.6 % (37.0-80.0); Nucleated Red Blood Cells % 0.4 %; Red Blood Cells 3.59 10^6/uL (4.5-5.90); Red Cell Distribution Width 16.9 % (11.8-14.3); White Blood Cell 3.3 10^3/uL (4.4-10.8)
[2023-10-17 07:38] LABS: Anion Gap 11 (5-15); Carbon Dioxide 27 mmol/L (20-30); Chloride 98 mmol/L (98-107); Potassium 5.2 mmol/L (3.5-5.1); Sodium 136 mmol/L (136-145)
[2023-10-17 07:44] LABS: Glucose 73 mg/dL (74-106)
[2023-10-17 07:45] LABS: BUN/Creatinine Ratio 4.5 (10.0-20.0); Blood Urea Nitrogen 31 mg/dL (9-23)
[2023-10-17] MEDS ORDERED: diphenhdrAMINE HCL 12.5 MG/5 ML UD PO ONE (09:45)
[2023-10-17] MEDS: SODIUM CHL 0.9% 1000 ML BAG XX ONE (10:00)
[2023-10-17] MEDS ORDERED: AZIT-185 PO (13:47)
== END 2023-10-17 15:15 | disposition home or self-care (01) | DRG 640 ==
LOC: ER 15:49 → TELE 21:44 → TELE-WESTW 10-16 12:12
PROVIDERS: ADMIT Internal Medicine; ATTEND Internal Medicine
PROC: 5A1D70Z Performance of Urinary Filtration, Intermittent, Less than 6 Hours Per Day (ICD-10-PCS; principal; 2023-10-15)
PROC: 5A09357 Assistance with Respiratory Ventilation, Less than 24 Consecutive Hours, Continuous Positive Airway Pressure (ICD-10-PCS; 2023-10-15)
PROC: 05HA33Z Insertion of Infusion Device into Left Brachial Vein, Percutaneous Approach (ICD-10-PCS; 2023-10-15)
PROC: B54NZZA Ultrasonography of Left Upper Extremity Veins, Guidance (ICD-10-PCS; 2023-10-15)
DX: E87.5 Hyperkalemia (principal); I50.31 Acute diastolic (congestive) heart failure; N18.6 End stage renal disease; J44.1 Chronic obstructive pulmonary disease with (acute) exacerbation; N25.81 Secondary hyperparathyroidism of renal origin; I13.2 Hypertensive heart and chronic kidney disease with heart failure and with stage 5 chronic kidney disease, or end stage renal disease; E87.70 Fluid overload, unspecified; I25.10 Atherosclerotic heart disease of native coronary artery without angina pectoris; I16.0 Hypertensive urgency; G40.909 Epilepsy, unspecified, not intractable, without status epilepticus; D64.9 Anemia, unspecified; Z20.822 Contact with and (suspected) exposure to COVID-19; Z99.2 Dependence on renal dialysis; Z88.0 Allergy status to penicillin; Z88.8 Allergy status to other drugs, medicaments and biological substances; Z86.73 Personal history of transient ischemic attack (TIA), and cerebral infarction without residual deficits; Z82.49 Family history of ischemic heart disease and other diseases of the circulatory system; Z91.158 Patient's noncompliance with renal dialysis for other reason
CPT/HCPCS: 36415; 36600; 71045; 80048; 80053; 80074; 81001; 82542; 82805; 82962; 83605; 83690; 83880; 84132; 84484; 85025; 87426; 87804; 90935; 93005; 94640; 94660; G0378; J1642; Q0162

== ENCOUNTER 2023-11-08 10:50 | Inpatient (IN) | payer MEDICARE, MEDICAID ==
[~2023-11-08] VITALS: Ht 175.3 cm; Wt 64.2 kg
[~2023-11-08 10:50] MED LIST changes: +AZIT-185 PO
[2023-11-08 11:44] VITALS: PULSE 75; RESP 15; O2SAT 95
[2023-11-08 12:29] LABS: Basophils # (auto) 0.1 10 ^3/uL (0-0.2); Basophils % (auto) 1.5 % (0.0-2.0); Eosinophils # (auto) 0.1 10 ^3/uL (0-0.8); Hematocrit 34.2 % (41.0-53.0); Hemoglobin 11.1 g/dL (13.5-17.5); Lymphocytes # (auto) 0.5 10 ^3/uL (0.4-5.4); Lymphocytes % (auto) 10.4 % (10.0-50.0); Mean Corpuscular Hemoglobin 28.1 pg (28.0-32.0); Mean Corpuscular Hgb Conc. 32.5 g/dL (32.0-36.0); Mean Corpuscular Volume 86.5 fL (80.0-100.0); Monocytes # (auto) 0.4 10 ^3/uL (0-1.3); Monocytes % (auto) 9.1 % (0.0-12.0); Neutrophils # (auto) 3.7 10 ^3/uL (1.6-8.6); Nucleated Red Blood Cells % 0.1 %; Platelet Count (auto) 147 10^3/uL (140-450); Red Blood Cells 3.96 10^6/uL (4.5-5.90); Red Cell Distribution Width 18.1 % (11.8-14.3); White Blood Cell 4.8 10^3/uL (4.4-10.8)
[2023-11-08 12:38] LABS: Chloride 97 mmol/L (98-107); Potassium 4.4 mmol/L (3.5-5.1); Sodium 136 mmol/L (136-145)
[2023-11-08 12:39] LABS: Anion Gap 15 (5-15); Carbon Dioxide 24 mmol/L (20-30)
[2023-11-08 12:44] LABS: BUN/Creatinine Ratio 8.3 (10.0-20.0); Blood Urea Nitrogen 62 mg/dL (9-23); Glucose 92 mg/dL (74-106)
[2023-11-08] MEDS ORDERED: NITROGLYCERIN 0.4 MG SL TAB SL PRN (13:45)
[2023-11-08] MEDS ORDERED: DOCUSATE SOD 100 MG CAP PO PRN (13:45)
[2023-11-08] MEDS ORDERED: ONDANSETRON HCL 4 MG/2 ML VIAL IV PRN (13:45)
[2023-11-08] MEDS ORDERED: PATIENTS OWN MEDICATION (Sevelamer Carbonate (Renvela) 800 MG) PO SCH (14:00)
[2023-11-08] MEDS: levETIRAcetam 500 mg/100ml 100 ML IV ONE (14:24)
[2023-11-08] MEDS: ENOXAPARIN SOD 30 MG/0.3 ML SYRINGE SC SCH (14:24)
[2023-11-08 14:26] LABS: Base Excess -1.9 mmol/L (-2.0-2.0)
[2023-11-08 15:19] LABS: Magnesium 2.5 mg/dL (1.6-2.6)
[2023-11-08 15:21] LABS: Phosphorus 9.1 mg/dL (2.4-5.1)
[2023-11-08 15:21] LABS: INR 1.08 (0.9-1.15); Prothrombin Time 11.4 sec (9.3-11.8)
[2023-11-08] MEDS: SEVELAMER 800 MG TAB PO SCH (18:00)
[2023-11-08 19:27] VITALS: PULSE 71; RESP 13; O2SAT 97
[2023-11-08 21:43] VITALS: BP 138/88; PULSE 72; O2SAT 96
[2023-11-08 21:56] LABS: Base Excess -3.5 mmol/L (-2.0-2.0)
[2023-11-08] MEDS: CARVEDILOL 12.5 MG TAB PO SCH (23:27)
[2023-11-09] VITALS (60 sets, daily range): BP systolic 93–173; BP diastolic 59–87; PULSE 18–85; RESP 14–65; TEMP 97.9–99; O2SAT 92–100
[2023-11-09] MEDS: ROCURONIUM 10MG/ML 10ML VIAL IV ONE ×2 (00:41→00:51)
[2023-11-09] MEDS: ETOMIDATE (2MG/ML) 20ML VIAL IV ONE ×3 (00:41→01:07)
[2023-11-09] MEDS: PROPOFOL 100 ML IV ONE (00:41)
[2023-11-09] MEDS: PROPOFOL 100 ML IV SCH (01:00)
[2023-11-09] MEDS: SUCCINYLCHOLINE CHLORIDE 20 MG/ML 10ML VIAL IV ONE ×2 (01:04→01:18)
[2023-11-09] MEDS ORDERED: PROPOFOL 100 ML IV SCH (01:15)
[2023-11-09 01:33] LABS: Base Excess -3.2 mmol/L (-2.0-2.0)
[2023-11-09 02:43] LABS: Base Excess -1.8 mmol/L (-2.0-2.0)
[2023-11-09] MEDS: MIDAZOLAM DRIP 50 mg/50mL 50 ML IV SCH (05:24)
[2023-11-09 06:21] LABS: Alanine Aminotransferase 10 U/L (7-40); Albumin 3.5 g/dL (3.2-4.8); Alkaline Phosphatase 113 U/L (46-116); Anion Gap 16 (5-15); Aspartate Aminotransferase 22 U/L (13-40); BUN/Creatinine Ratio 6.2 (10.0-20.0); Bilirubin, Total 0.4 mg/dL (0.2-1.0); Blood Urea Nitrogen 53 mg/dL (9-23); Calcium 8.6 mg/dL (8.7-10.4); Carbon Dioxide 22 mmol/L (20-30); Chloride 98 mmol/L (98-107); Glucose 64 mg/dL (74-106); Potassium 4.5 mmol/L (3.5-5.1); Sodium 136 mmol/L (136-145)
[2023-11-09 07:44] LABS: Basophils # (auto) 0.1 10 ^3/uL (0-0.2); Basophils % (auto) 1.9 % (0.0-2.0); Eosinophils # (auto) 0.1 10 ^3/uL (0-0.8); Eosinophils % (auto) 3.8 % (0.0-7.0); Hematocrit 28.3 % (41.0-53.0); Hemoglobin 9.5 g/dL (13.5-17.5); Lymphocytes # (auto) 0.5 10 ^3/uL (0.4-5.4); Lymphocytes % (auto) 14.1 % (10.0-50.0); Mean Corpuscular Hemoglobin 28.8 pg (28.0-32.0); Mean Corpuscular Hgb Conc. 33.6 g/dL (32.0-36.0); Mean Corpuscular Volume 85.6 fL (80.0-100.0); Monocytes # (auto) 0.3 10 ^3/uL (0-1.3); Monocytes % (auto) 7.9 % (0.0-12.0); Neutrophils # (auto) 2.6 10 ^3/uL (1.6-8.6); Neutrophils % (auto) 72.3 % (37.0-80.0); Nucleated Red Blood Cells % 0.1 %; Platelet Count (auto) 107 10^3/uL (140-450); Red Blood Cells 3.31 10^6/uL (4.5-5.90); Red Cell Distribution Width 18.1 % (11.8-14.3); White Blood Cell 3.5 10^3/uL (4.4-10.8)
[2023-11-09] MEDS: levETIRAcetam 500 mg/100ml 100 ML IV SCH ×2 (09:40→22:06)
[2023-11-09] MEDS: levETIRAcetam 500 MG TAB PO SCH (09:55)
[2023-11-09] MEDS: amLODIPine BESYLATE 5 MG TAB PO SCH (09:55)
[2023-11-09 12:14] LABS: Base Excess 8.7 mmol/L (-2.0-2.0)
[2023-11-09] MEDS: cefTRIAXone 1GM/50ML D5W 50 ML IV ONE (15:13)
[2023-11-09] MEDS: fentaNYL Drip 2500mCg/250mlNS 250 ML IV SCH (15:14)
[2023-11-09] MEDS ORDERED: CLINIMIX PER PHARMACY 0 ML IV SCH ×2 (17:30→20:00)
[2023-11-09] MEDS: ACCU-CHEK COMFORT CURVE STRIP VI SCH (17:49)
[2023-11-09] MEDS: InsuLIN REG 1unit/0.01ml Soln (100units/ml) SC SCH (18:00)
[2023-11-09] MEDS ORDERED: DEXTROSE (50%) 50ML SYRG IV SCH (18:00)
[2023-11-09 18:13] LABS: Urine Bacteria MANY /hpf (None Seen); Urine Blood 3+ /uL (Negative); Urine Clarity Ex.Turbid (Clear); Urine Color Colorless (Yellow); Urine Hyaline Cast MOD /lpf (0 - 2); Urine Mucus FEW (None Seen); Urine Protein, UAD 1+ (Negative); Urine Specific Gravity 1.005 (1.001-1.035); Urine Urobilinogen Normal (Negative); Urine WBC 45 /hpf (0 - 3); Urine WBC Clumps PRESENT /hpf (None Seen)
[2023-11-09] MEDS: AMINO ACID INFUSION IN D10W 1,000 ML IV SCH (20:10)
[2023-11-09] MEDS: FAMOTIDINE (10MG/ML) 2ML VL IV SCH (22:06)
[2023-11-10] VITALS (110 sets, daily range): BP systolic 80–153; BP diastolic 48–108; PULSE 50–79; RESP 11–25; TEMP 96.8–100.8; O2SAT 90–100
[2023-11-10 03:50] LABS: Basophils # (auto) 0.1 10 ^3/uL (0-0.2); Basophils % (auto) 2.2 % (0.0-2.0); Eosinophils # (auto) 0.1 10 ^3/uL (0-0.8); Hematocrit 33.3 % (41.0-53.0); Hemoglobin 10.9 g/dL (13.5-17.5); Lymphocytes # (auto) 0.4 10 ^3/uL (0.4-5.4); Lymphocytes % (auto) 13.3 % (10.0-50.0); Mean Corpuscular Hemoglobin 28.1 pg (28.0-32.0); Mean Corpuscular Hgb Conc. 32.8 g/dL (32.0-36.0); Mean Corpuscular Volume 85.7 fL (80.0-100.0); Monocytes # (auto) 0.3 10 ^3/uL (0-1.3); Neutrophils # (auto) 2.3 10 ^3/uL (1.6-8.6); Neutrophils % (auto) 71.5 % (37.0-80.0); Nucleated Red Blood Cells % 0.1 %; Platelet Count (auto) 111 10^3/uL (140-450); Red Blood Cells 3.88 10^6/uL (4.5-5.90); Red Cell Distribution Width 18.4 % (11.8-14.3); White Blood Cell 3.2 10^3/uL (4.4-10.8)
[2023-11-10 04:04] LABS: Alkaline Phosphatase 123 U/L (46-116); Anion Gap 9 (5-15); Aspartate Aminotransferase 17 U/L (13-40); BUN/Creatinine Ratio 5.5 (10.0-20.0); Bilirubin, Total 0.4 mg/dL (0.2-1.0); Calcium 9.4 mg/dL (8.7-10.4); Carbon Dioxide 31 mmol/L (20-30); Chloride 97 mmol/L (98-107); Glucose 96 mg/dL (74-106); Magnesium 2.2 mg/dL (1.6-2.6); Phosphorus 5.3 mg/dL (2.4-5.1); Potassium 3.7 mmol/L (3.5-5.1); Sodium 137 mmol/L (136-145); Total Protein 6.4 g/dL (5.7-8.2)
[2023-11-10 04:06] LABS: Albumin 3.7 g/dL (3.2-4.8)
[2023-11-10 04:12] LABS: Alanine Aminotransferase 9 U/L (7-40); Blood Urea Nitrogen 30 mg/dL (9-23)
[2023-11-10 07:31] LABS: Base Excess 2.6 mmol/L (-2.0-2.0)
[2023-11-10] MEDS: cefTRIAXone 1GM/50ML D5W 50 ML IV SCH (08:13)
[2023-11-10 17:18] LABS: Base Excess 2.4 mmol/L (-2.0-2.0)
[2023-11-10] MEDS: MUPIROCIN 2% OINT 15gm or 22gm FOR MRSA NARES EACHNOSTRI SCH (22:20)
[2023-11-11] VITALS (111 sets, daily range): BP systolic 83–152; BP diastolic 47–103; PULSE 54–87; RESP 10–24; TEMP 97.2–99.7; O2SAT 89–99
[2023-11-11 04:25] LABS: Albumin 3.6 g/dL (3.2-4.8); Alkaline Phosphatase 118 U/L (46-116); Anion Gap 10 (5-15); Aspartate Aminotransferase 13 U/L (13-40); Calcium 8.7 mg/dL (8.7-10.4); Carbon Dioxide 28 mmol/L (20-30); Chloride 95 mmol/L (98-107); Glucose 90 mg/dL (74-106); Magnesium 2.2 mg/dL (1.6-2.6); Potassium 4.1 mmol/L (3.5-5.1); Sodium 133 mmol/L (136-145)
[2023-11-11 04:26] LABS: Phosphorus 7.8 mg/dL (2.4-5.1)
[2023-11-11 04:27] LABS: Bilirubin, Total 0.3 mg/dL (0.2-1.0); Total Protein 6.4 g/dL (5.7-8.2)
[2023-11-11 04:42] LABS: Alanine Aminotransferase < 9 U/L (7-40); Blood Urea Nitrogen 45 mg/dL (9-23)
[2023-11-11 05:11] LABS: Basophils # (auto) 0.1 10 ^3/uL (0-0.2); Basophils % (auto) 1.7 % (0.0-2.0); Eosinophils # (auto) 0.2 10 ^3/uL (0-0.8); Eosinophils % (auto) 4.4 % (0.0-7.0); Hematocrit 31.8 % (41.0-53.0); Hemoglobin 10.4 g/dL (13.5-17.5); Lymphocytes # (auto) 0.6 10 ^3/uL (0.4-5.4); Lymphocytes % (auto) 13.6 % (10.0-50.0); Mean Corpuscular Hgb Conc. 32.9 g/dL (32.0-36.0); Mean Corpuscular Volume 85.1 fL (80.0-100.0); Monocytes # (auto) 0.5 10 ^3/uL (0-1.3); Monocytes % (auto) 11.3 % (0.0-12.0); Neutrophils # (auto) 2.9 10 ^3/uL (1.6-8.6); Nucleated Red Blood Cells % 0.1 %; Platelet Count (auto) 117 10^3/uL (140-450); Red Blood Cells 3.74 10^6/uL (4.5-5.90); Red Cell Distribution Width 17.8 % (11.8-14.3); White Blood Cell 4.2 10^3/uL (4.4-10.8)
[2023-11-11 07:17] LABS: Base Excess -0.6 mmol/L (-2.0-2.0)
[2023-11-11] MEDS: levETIRAcetam 500 mg/100ml 100 ML IV ONE (15:00)
[2023-11-12] VITALS (108 sets, daily range): BP systolic 80–144; BP diastolic 47–90; PULSE 48–93; RESP 10–22; TEMP 96.4–100.8; O2SAT 76–100
[2023-11-12 04:12] LABS: Basophils # (auto) 0.1 10 ^3/uL (0-0.2); Basophils % (auto) 1.3 % (0.0-2.0); Eosinophils # (auto) 0.3 10 ^3/uL (0-0.8); Eosinophils % (auto) 5.6 % (0.0-7.0); Hematocrit 32.3 % (41.0-53.0); Hemoglobin 10.7 g/dL (13.5-17.5); Lymphocytes # (auto) 0.9 10 ^3/uL (0.4-5.4); Lymphocytes % (auto) 19.9 % (10.0-50.0); Mean Corpuscular Hemoglobin 28.2 pg (28.0-32.0); Mean Corpuscular Volume 85.3 fL (80.0-100.0); Monocytes # (auto) 0.6 10 ^3/uL (0-1.3); Monocytes % (auto) 13.9 % (0.0-12.0); Neutrophils # (auto) 2.8 10 ^3/uL (1.6-8.6); Neutrophils % (auto) 59.3 % (37.0-80.0); Nucleated Red Blood Cells % 0.1 %; Platelet Count (auto) 111 10^3/uL (140-450); Red Blood Cells 3.79 10^6/uL (4.5-5.90); Red Cell Distribution Width 17.6 % (11.8-14.3); White Blood Cell 4.7 10^3/uL (4.4-10.8)
[2023-11-12 04:37] LABS: Albumin 3.6 g/dL (3.2-4.8); Alkaline Phosphatase 116 U/L (46-116); Anion Gap 12 (5-15); Aspartate Aminotransferase 15 U/L (13-40); BUN/Creatinine Ratio 7.3 (10.0-20.0); Bilirubin, Total 0.2 mg/dL (0.2-1.0); Calcium 8.7 mg/dL (8.7-10.4); Carbon Dioxide 25 mmol/L (20-30); Chloride 92 mmol/L (98-107); GFR African American 10 mL/min; GFR Non-African American 8 mL/min; Glucose 88 mg/dL (74-106); Magnesium 2.2 mg/dL (1.6-2.6); Phosphorus 9.8 mg/dL (2.4-5.1); Potassium 4.5 mmol/L (3.5-5.1); Sodium 129 mmol/L (136-145); Total Protein 6.9 g/dL (5.7-8.2)
[2023-11-12 04:47] LABS: Alanine Aminotransferase < 9 U/L (7-40); Blood Urea Nitrogen 57 mg/dL (9-23)
[2023-11-12 08:27] LABS: Base Excess -3.8 mmol/L (-2.0-2.0)
[2023-11-12] MEDS: SODIUM CHL 0.9% 1000 ML BAG XX ONE (09:00)
[2023-11-12] MEDS: ALBUMIN 25% 100 ML IV ONE (09:49)
[2023-11-12] MEDS: NOREPINEPHRINE 8 MG/250ML KIT 250 ML IV SCH (11:30)
[2023-11-12] MEDS ORDERED: VANCOMYCIN PER PHARMACY 0 MG IV SCH (15:45)
[2023-11-12] MEDS: VANCOMYCIN 1GM/200ML 200 ML IV ONE (17:11)
[2023-11-12] MEDS ORDERED: ZOFR4T PO (17:32)
[2023-11-12] MEDS ORDERED: LISI10TA34 PO (17:32)
[2023-11-12] MEDS ORDERED: AMLO1TAB23 PO (17:32)
[2023-11-12] MEDS: MEROPENEM 1GM IVPB 50 ML IV ONE (18:30)
[2023-11-12] MEDS: EPOETIN ALFA-EPBX 4,000 UNIT/ML VIAL SC ONE (20:53)
[2023-11-13] VITALS (107 sets, daily range): BP systolic 87–212; BP diastolic 47–101; PULSE 43–114; RESP 11–19; TEMP 96.3–100.6; O2SAT 91–100
[2023-11-13 04:35] LABS: % Iron Saturation 16.5 % (20-55)
[2023-11-13 04:40] LABS: Albumin 2.7 g/dL (3.2-4.8); Alkaline Phosphatase 83 U/L (46-116); Anion Gap 11 (5-15); Aspartate Aminotransferase 9 U/L (13-40); BUN/Creatinine Ratio 6.3 (10.0-20.0); Bilirubin, Total 0.3 mg/dL (0.2-1.0); Calcium 7.7 mg/dL (8.7-10.4); Carbon Dioxide 23 mmol/L (20-30); Chloride 103 mmol/L (98-107); Glucose 79 mg/dL (74-106); Magnesium 1.6 mg/dL (1.6-2.6); Potassium 3.5 mmol/L (3.5-5.1); Sodium 137 mmol/L (136-145)
[2023-11-13 04:43] LABS: Basophils # (auto) 0 10 ^3/uL (0-0.2); Eosinophils # (auto) 0.2 10 ^3/uL (0-0.8); Eosinophils % (auto) 6.1 % (0.0-7.0); Hematocrit 28.3 % (41.0-53.0); Hemoglobin 9.4 g/dL (13.5-17.5); Lymphocytes # (auto) 0.4 10 ^3/uL (0.4-5.4); Lymphocytes % (auto) 14.8 % (10.0-50.0); Mean Corpuscular Hemoglobin 28.1 pg (28.0-32.0); Mean Corpuscular Hgb Conc. 33.4 g/dL (32.0-36.0); Mean Corpuscular Volume 84.1 fL (80.0-100.0); Monocytes # (auto) 0.4 10 ^3/uL (0-1.3); Neutrophils # (auto) 1.6 10 ^3/uL (1.6-8.6); Neutrophils % (auto) 61.1 % (37.0-80.0); Nucleated Red Blood Cells % 0.2 %; Platelet Count (auto) 101 10^3/uL (140-450); Red Blood Cells 3.36 10^6/uL (4.5-5.90); Red Cell Distribution Width 17.3 % (11.8-14.3); White Blood Cell 2.5 10^3/uL (4.4-10.8)
[2023-11-13 05:06] LABS: Alanine Aminotransferase < 9 U/L (7-40); Blood Urea Nitrogen 28 mg/dL (9-23)
[2023-11-13 07:39] LABS: Platelet Estimate Decreased
[2023-11-13 07:45] LABS: Base Excess 1.3 mmol/L (-2.0-2.0)
[2023-11-13] MEDS: DOPamine 1600MCG/ML D5W 250 ML IV SCH (08:53)
[2023-11-13] MEDS: MIDAZOLAM DRIP 50 mg/50mL 50 ML IV SCH (11:06)
[2023-11-13] MEDS: SODIUM CHL 0.9% 1000 ML BAG XX ONE (13:38)
[2023-11-13] MEDS: MAGNESIUM SULFATE 1GM/100ML 100 ML IV ONE (15:37)
[2023-11-13] MEDS: MEROPENEM 500MG IVPB 50 ML IV SCH (17:10)
[2023-11-13] MEDS: IPRATROPIUM BROM 0.5 MG/2.5ML INH SOL NEB SCH (18:22)
[2023-11-13] MEDS: ALBUTEROL SULF 2.5 MG/0.5ML(0.5%) NEB SOLN NEB SCH (18:22)
[2023-11-13] MEDS: ROCURONIUM 10MG/ML 10ML VIAL IV ONE ×2 (18:52→19:12)
[2023-11-13] MEDS: VANCOMYCIN 500 MG in D5W 5% 100 ML IV ONE (20:59)
[2023-11-14] VITALS (108 sets, daily range): BP systolic 98–168; BP diastolic 58–97; PULSE 48–91; RESP 12–25; TEMP 97.3–99; O2SAT 98–100
[2023-11-14 04:08] LABS: Albumin 3.2 g/dL (3.2-4.8); Alkaline Phosphatase 101 U/L (46-116); Anion Gap 9 (5-15); Aspartate Aminotransferase 11 U/L (13-40); BUN/Creatinine Ratio 6.7 (10.0-20.0); Blood Urea Nitrogen 27 mg/dL (9-23); Calcium 9.3 mg/dL (8.7-10.4); Carbon Dioxide 27 mmol/L (20-30); Chloride 98 mmol/L (98-107); Glucose 96 mg/dL (74-106); Magnesium 2.1 mg/dL (1.6-2.6); Phosphorus 4.2 mg/dL (2.4-5.1); Potassium 3.8 mmol/L (3.5-5.1); Sodium 134 mmol/L (136-145)
[2023-11-14 04:09] LABS: Bilirubin, Total 0.4 mg/dL (0.2-1.0)
[2023-11-14 04:15] LABS: Alanine Aminotransferase < 9 U/L (7-40)
[2023-11-14 06:55] LABS: Basophils # (auto) 0 10 ^3/uL (0-0.2); Basophils % (auto) 1.3 % (0.0-2.0); Eosinophils # (auto) 0.1 10 ^3/uL (0-0.8); Eosinophils % (auto) 5.4 % (0.0-7.0); Hematocrit 28.8 % (41.0-53.0); Hemoglobin 9.6 g/dL (13.5-17.5); Lymphocytes # (auto) 0.6 10 ^3/uL (0.4-5.4); Lymphocytes % (auto) 21.6 % (10.0-50.0); Mean Corpuscular Hemoglobin 27.7 pg (28.0-32.0); Mean Corpuscular Hgb Conc. 33.4 g/dL (32.0-36.0); Monocytes # (auto) 0.4 10 ^3/uL (0-1.3); Neutrophils # (auto) 1.6 10 ^3/uL (1.6-8.6); Neutrophils % (auto) 56.7 % (37.0-80.0); Nucleated Red Blood Cells % 0.1 %; Platelet Count (auto) 121 10^3/uL (140-450); Red Blood Cells 3.47 10^6/uL (4.5-5.90); Red Cell Distribution Width 17.5 % (11.8-14.3); White Blood Cell 2.7 10^3/uL (4.4-10.8)
[2023-11-14 07:48] LABS: Base Excess 2.8 mmol/L (-2.0-2.0)
[2023-11-14] MEDS: VANCOMYCIN 500 MG in D5W 5% 100 ML IV ONE (12:21)
[2023-11-15] VITALS (110 sets, daily range): BP systolic 107–172; BP diastolic 66–105; PULSE 70–110; RESP 10–25; TEMP 97–99.1; O2SAT 86–100
[2023-11-15 04:01] LABS: Hemoglobin 9.8 g/dL (13.5-17.5)
[2023-11-15 04:05] LABS: Anion Gap 10 (5-15); Carbon Dioxide 24 mmol/L (20-30); Chloride 96 mmol/L (98-107); Potassium 4.1 mmol/L (3.5-5.1); Sodium 130 mmol/L (136-145)
[2023-11-15 04:07] LABS: Calcium 9.3 mg/dL (8.7-10.4)
[2023-11-15 04:11] LABS: Glucose 92 mg/dL (74-106)
[2023-11-15 04:12] LABS: BUN/Creatinine Ratio 7.8 (10.0-20.0); Magnesium 2.1 mg/dL (1.6-2.6)
[2023-11-15 04:14] LABS: Phosphorus 5.4 mg/dL (2.4-5.1)
[2023-11-15 04:56] LABS: Blood Urea Nitrogen 41 mg/dL (9-23)
[2023-11-15] MEDS: SODIUM CHL 0.9% 1000 ML BAG XX ONE (08:44)
[2023-11-15] MEDS: LACTULOSE 20Gm/30ML SOLN PO ONE (14:00)
[2023-11-15] MEDS: VANCOMYCIN 500 MG in D5W 5% 100 ML IV ONE (14:23)
[2023-11-15] MEDS: Nepro With Carb Steady 1 Liter Bottle GT SCH (15:01)
[2023-11-15] MEDS: EPOETIN ALFA-EPBX 4,000 UNIT/ML VIAL SC ONE (21:35)
[2023-11-16] VITALS (103 sets, daily range): BP systolic 112–176; BP diastolic 71–107; PULSE 58–98; RESP 12–36; TEMP 97.2–99; O2SAT 86–100
[2023-11-16 03:40] LABS: Basophils # (auto) 0 10 ^3/uL (0-0.2); Basophils % (auto) 1.5 % (0.0-2.0); Eosinophils # (auto) 0.2 10 ^3/uL (0-0.8); Eosinophils % (auto) 5.7 % (0.0-7.0); Hematocrit 28.6 % (41.0-53.0); Hemoglobin 9.4 g/dL (13.5-17.5); Lymphocytes # (auto) 0.4 10 ^3/uL (0.4-5.4); Lymphocytes % (auto) 11.5 % (10.0-50.0); Mean Corpuscular Hemoglobin 27.4 pg (28.0-32.0); Mean Corpuscular Hgb Conc. 32.8 g/dL (32.0-36.0); Mean Corpuscular Volume 83.7 fL (80.0-100.0); Monocytes # (auto) 0.4 10 ^3/uL (0-1.3); Monocytes % (auto) 13.8 % (0.0-12.0); Neutrophils # (auto) 2.1 10 ^3/uL (1.6-8.6); Neutrophils % (auto) 67.5 % (37.0-80.0); Platelet Count (auto) 132 10^3/uL (140-450); Red Blood Cells 3.41 10^6/uL (4.5-5.90); Red Cell Distribution Width 17.1 % (11.8-14.3); White Blood Cell 3.1 10^3/uL (4.4-10.8)
[2023-11-16 03:54] LABS: Chloride 98 mmol/L (98-107); Potassium 3.6 mmol/L (3.5-5.1)
[2023-11-16 03:55] LABS: Calcium 9.6 mg/dL (8.7-10.4)
[2023-11-16 04:00] LABS: BUN/Creatinine Ratio 6.9 (10.0-20.0); Glucose 106 mg/dL (74-106)
[2023-11-16 04:01] LABS: Magnesium 2.2 mg/dL (1.6-2.6)
[2023-11-16 04:02] LABS: Phosphorus 4.1 mg/dL (2.4-5.1)
[2023-11-16 04:15] LABS: Blood Urea Nitrogen 29 mg/dL (9-23); Sodium 135 mmol/L (136-145)
[2023-11-16 04:22] LABS: Anion Gap 9 (5-15); Carbon Dioxide 28 mmol/L (20-30)
[2023-11-16 07:36] LABS: Base Excess 3.2 mmol/L (-2.0-2.0)
[2023-11-16 15:11] LABS: Base Excess 1.8 mmol/L (-2.0-2.0)
[2023-11-16] MEDS: EPINEPHrine HCL 0.5 ML NEB ONE (16:32)
[2023-11-16] MEDS: EPINEPHrine HCL 0.5 ML NEB NEB ONE (16:55)
[2023-11-16] MEDS: DexAMETHasone SOD PHOS 10MG/1ML VIAL INJ IV ONE (17:00)
[2023-11-16 18:56] LABS: Base Excess 0.9 mmol/L (-2.0-2.0)
[2023-11-16] MEDS: DexAMETHasone SOD PHOS 10MG/1ML VIAL INJ IV SCH (23:17)
[2023-11-17] VITALS (37 sets, daily range): BP systolic 142–170; BP diastolic 88–105; PULSE 78–97; RESP 14–26; TEMP 97.2–98.4; O2SAT 91–100
[2023-11-17 05:30] LABS: Basophils # (auto) 0 10 ^3/uL (0-0.2); Basophils % (auto) 0.8 % (0.0-2.0); Eosinophils # (auto) 0 10 ^3/uL (0-0.8); Eosinophils % (auto) 0.3 % (0.0-7.0); Hematocrit 30.8 % (41.0-53.0); Hemoglobin 10.3 g/dL (13.5-17.5); Lymphocytes # (auto) 0.3 10 ^3/uL (0.4-5.4); Lymphocytes % (auto) 9.6 % (10.0-50.0); Mean Corpuscular Hemoglobin 27.5 pg (28.0-32.0); Mean Corpuscular Hgb Conc. 33.4 g/dL (32.0-36.0); Mean Corpuscular Volume 82.4 fL (80.0-100.0); Monocytes # (auto) 0.1 10 ^3/uL (0-1.3); Monocytes % (auto) 2.1 % (0.0-12.0); Neutrophils # (auto) 2.3 10 ^3/uL (1.6-8.6); Neutrophils % (auto) 87.2 % (37.0-80.0); Nucleated Red Blood Cells % 0.3 %; Platelet Count (auto) 143 10^3/uL (140-450); Red Blood Cells 3.74 10^6/uL (4.5-5.90); Red Cell Distribution Width 16.5 % (11.8-14.3); White Blood Cell 2.6 10^3/uL (4.4-10.8)
[2023-11-17 05:51] LABS: Albumin 4.2 g/dL (3.2-4.8); Alkaline Phosphatase 191 U/L (46-116); Anion Gap 12 (5-15); Aspartate Aminotransferase 21 U/L (13-40); BUN/Creatinine Ratio 8.1 (10.0-20.0); Bilirubin, Total 0.4 mg/dL (0.2-1.0); Calcium 10.3 mg/dL (8.7-10.4); Carbon Dioxide 25 mmol/L (20-30); Chloride 94 mmol/L (98-107); Glucose 134 mg/dL (74-106); Magnesium 2.4 mg/dL (1.6-2.6); Phosphorus 4.2 mg/dL (2.4-5.1); Sodium 131 mmol/L (136-145); Total Protein 7.4 g/dL (5.7-8.2)
[2023-11-17 06:00] LABS: Alanine Aminotransferase < 9 U/L (7-40); Blood Urea Nitrogen 45 mg/dL (9-23)
[2023-11-17] MEDS: SODIUM CHL 0.9% 1000 ML BAG XX ONE (07:00)
[2023-11-17] MEDS: hydrALAZINE HCL 20 MG/ML VL IV PRN (17:39)
[2023-11-17] MEDS: EPOETIN ALFA-EPBX 10,000 UNIT/1ML VIAL SC ONE (21:58)
[2023-11-17] MEDS: HYDROcodone-ACET 5/325MG TAB PO PRN (22:47)
[2023-11-18] VITALS (20 sets, daily range): BP systolic 138–159; BP diastolic 89–104; PULSE 66–103; RESP 16–22; TEMP 97.8–98.2; O2SAT 94–100
[2023-11-18 06:28] LABS: Basophils # (auto) 0 10 ^3/uL (0-0.2); Basophils % (auto) 0.5 % (0.0-2.0); Eosinophils # (auto) 0 10 ^3/uL (0-0.8); Eosinophils % (auto) 0.3 % (0.0-7.0); Hematocrit 31.9 % (41.0-53.0); Hemoglobin 10.7 g/dL (13.5-17.5); Lymphocytes # (auto) 0.3 10 ^3/uL (0.4-5.4); Lymphocytes % (auto) 8.2 % (10.0-50.0); Mean Corpuscular Hemoglobin 27.7 pg (28.0-32.0); Mean Corpuscular Hgb Conc. 33.4 g/dL (32.0-36.0); Mean Corpuscular Volume 82.7 fL (80.0-100.0); Monocytes # (auto) 0.2 10 ^3/uL (0-1.3); Monocytes % (auto) 5.6 % (0.0-12.0); Neutrophils # (auto) 3.2 10 ^3/uL (1.6-8.6); Neutrophils % (auto) 85.4 % (37.0-80.0); Nucleated Red Blood Cells % 0.3 %; Platelet Count (auto) 174 10^3/uL (140-450); Red Blood Cells 3.85 10^6/uL (4.5-5.90); Red Cell Distribution Width 17.4 % (11.8-14.3); White Blood Cell 3.8 10^3/uL (4.4-10.8)
[2023-11-18 06:45] LABS: Alanine Aminotransferase 11 U/L (7-40); Albumin 4.5 g/dL (3.2-4.8); Alkaline Phosphatase 190 U/L (46-116); Anion Gap 10 (5-15); Aspartate Aminotransferase 31 U/L (13-40); BUN/Creatinine Ratio 7.8 (10.0-20.0); Calcium 10.9 mg/dL (8.7-10.4); Carbon Dioxide 27 mmol/L (20-30); Chloride 99 mmol/L (98-107); Glucose 119 mg/dL (74-106); Magnesium 2.4 mg/dL (1.6-2.6); Potassium 3.7 mmol/L (3.5-5.1)
[2023-11-18 06:46] LABS: Bilirubin, Total 0.5 mg/dL (0.2-1.0); Total Protein 7.8 g/dL (5.7-8.2)
[2023-11-18 06:51] LABS: Blood Urea Nitrogen 35 mg/dL (9-23); Sodium 136 mmol/L (136-145)
[2023-11-18] MEDS: SEVELAMER 800 MG TAB PO SCH (17:43)
[2023-11-19] VITALS (20 sets, daily range): BP systolic 144–179; BP diastolic 84–113; PULSE 76–104; RESP 14–19; TEMP 97.7–98.7; O2SAT 93–100
[2023-11-19] MEDS ORDERED: SODIUM CHL 0.9% 1000 ML BAG XX ONE (07:00)
[2023-11-19 15:39] LABS: Hematocrit 33.2 % (41.0-53.0); Hemoglobin 10.6 g/dL (13.5-17.5); Mean Corpuscular Hemoglobin 27.3 pg (28.0-32.0); Mean Corpuscular Hgb Conc. 31.9 g/dL (32.0-36.0); Mean Corpuscular Volume 85.4 fL (80.0-100.0); Platelet Count (auto) 173 10^3/uL (140-450); Red Blood Cells 3.88 10^6/uL (4.5-5.90); Red Cell Distribution Width 17.8 % (11.8-14.3); White Blood Cell 5.2 10^3/uL (4.4-10.8)
[2023-11-19 15:47] LABS: Basophils % (manual) 0 (0.0-2.0); Blast Cells 0; Metamyelocytes % 0; Myelocytes % 0; Promyelocytes % 0; Reactive Lymphocytes 0
[2023-11-19 16:05] LABS: Alanine Aminotransferase 10 U/L (7-40); Albumin 4.2 g/dL (3.2-4.8); Alkaline Phosphatase 151 U/L (46-116); Anion Gap 11 (5-15); Aspartate Aminotransferase 27 U/L (13-40); Bilirubin, Total 0.5 mg/dL (0.2-1.0); Calcium 10.2 mg/dL (8.7-10.4); Carbon Dioxide 26 mmol/L (20-30); Chloride 100 mmol/L (98-107); Glucose 92 mg/dL (74-106); Potassium 3.8 mmol/L (3.5-5.1); Sodium 137 mmol/L (136-145); Total Protein 7.1 g/dL (5.7-8.2)
[2023-11-19 16:06] LABS: Blood Urea Nitrogen 47 mg/dL (9-23)
[2023-11-19 16:11] LABS: Band Neutrophils % (manual) 2; Eosinophils % (manual) 2 (0-7); Lymphocytes % (manual) 14 (10.0-50.0); Monocytes % (manual) 10 (0-12); Platelet Estimate Adequate
[2023-11-19] MEDS: LORazepam 2MG/ML-1ML VIAL IV PRN (20:20)
[2023-11-19] MEDS: EPOETIN ALFA-EPBX 4,000 UNIT/ML VIAL SC ONE (21:00)
[2023-11-19] MEDS: MUPIROCIN 2% OINT 15gm or 22gm FOR MRSA NARES EACHNOSTRI SCH (22:00)
[2023-11-20] VITALS (18 sets, daily range): BP systolic 139–193; BP diastolic 84–107; PULSE 7–109; RESP 16–22; TEMP 97.9–98.5; O2SAT 93–100
[2023-11-20] MEDS: ACETAMINOPHEN 325 MG TAB PO PRN (03:32)
[2023-11-20 06:58] LABS: Hematocrit 29.5 % (41.0-53.0); Hemoglobin 9.7 g/dL (13.5-17.5); Mean Corpuscular Hemoglobin 27.5 pg (28.0-32.0); Mean Corpuscular Hgb Conc. 32.9 g/dL (32.0-36.0); Mean Corpuscular Volume 83.7 fL (80.0-100.0); Platelet Count (auto) 157 10^3/uL (140-450); Red Blood Cells 3.52 10^6/uL (4.5-5.90); Red Cell Distribution Width 17.2 % (11.8-14.3); White Blood Cell 4.9 10^3/uL (4.4-10.8)
[2023-11-20 07:06] LABS: Basophils % (manual) 0 (0.0-2.0); Blast Cells 0; Metamyelocytes % 0; Myelocytes % 0; Promyelocytes % 0; Reactive Lymphocytes 0
[2023-11-20 07:29] LABS: Calcium 9.7 mg/dL (8.7-10.4); Chloride 100 mmol/L (98-107); Potassium 3.9 mmol/L (3.5-5.1); Sodium 139 mmol/L (136-145)
[2023-11-20 07:30] LABS: Anion Gap 12 (5-15); Carbon Dioxide 27 mmol/L (20-30)
[2023-11-20 07:35] LABS: Glucose 84 mg/dL (74-106)
[2023-11-20 07:36] LABS: BUN/Creatinine Ratio 8.1 (10.0-20.0)
[2023-11-20 07:43] LABS: Blood Urea Nitrogen 63 mg/dL (9-23)
[2023-11-20 10:35] LABS: Band Neutrophils % (manual) 1; Eosinophils % (manual) 2 (0-7); Lymphocytes % (manual) 17 (10.0-50.0); Monocytes % (manual) 5 (0-12); Platelet Estimate Adequate
[2023-11-20] MEDS: VANCOMYCIN 1GM/200ML 200 ML IV ONE (14:02)
[2023-11-20] MEDS: EPOETIN ALFA-EPBX 4,000 UNIT/ML VIAL SC ONE ×2 (17:00→21:30)
[2023-11-20] MEDS ORDERED: EPOETIN ALFA-EPBX 10,000 UNIT/1ML VIAL SC ONE (21:00)
[2023-11-21] VITALS (21 sets, daily range): BP systolic 140–158; BP diastolic 62–92; PULSE 80–101; RESP 16–20; TEMP 97.8–98.5; O2SAT 94–100
[2023-11-21 07:07] LABS: Anion Gap 9 (5-15); Carbon Dioxide 29 mmol/L (20-30); Chloride 104 mmol/L (98-107); Potassium 3.8 mmol/L (3.5-5.1); Sodium 142 mmol/L (136-145)
[2023-11-21 07:08] LABS: Calcium 9.3 mg/dL (8.7-10.4)
[2023-11-21 07:13] LABS: BUN/Creatinine Ratio 4.8 (10.0-20.0); Glucose 91 mg/dL (74-106)
[2023-11-21 07:23] LABS: Blood Urea Nitrogen 24 mg/dL (9-23)
[2023-11-21 09:42] LABS: Basophils # (auto) 0.1 10 ^3/uL (0-0.2); Basophils % (auto) 1.4 % (0.0-2.0); Eosinophils # (auto) 0.2 10 ^3/uL (0-0.8); Eosinophils % (auto) 4.6 % (0.0-7.0); Hematocrit 29.7 % (41.0-53.0); Hemoglobin 9.6 g/dL (13.5-17.5); Lymphocytes # (auto) 0.5 10 ^3/uL (0.4-5.4); Mean Corpuscular Hemoglobin 27.4 pg (28.0-32.0); Mean Corpuscular Hgb Conc. 32.1 g/dL (32.0-36.0); Mean Corpuscular Volume 85.3 fL (80.0-100.0); Monocytes # (auto) 0.4 10 ^3/uL (0-1.3); Monocytes % (auto) 11.9 % (0.0-12.0); Neutrophils # (auto) 2.5 10 ^3/uL (1.6-8.6); Neutrophils % (auto) 69.1 % (37.0-80.0); Nucleated Red Blood Cells % 0.4 %; Platelet Count (auto) 133 10^3/uL (140-450); Red Blood Cells 3.49 10^6/uL (4.5-5.90); Red Cell Distribution Width 17.6 % (11.8-14.3); White Blood Cell 3.7 10^3/uL (4.4-10.8)
[2023-11-22] VITALS (16 sets, daily range): BP systolic 149–172; BP diastolic 93–97; PULSE 69–91; RESP 14–20; TEMP 97.6–98.2; O2SAT 93–100
[2023-11-22 06:06] LABS: Chloride 106 mmol/L (98-107); Potassium 3.7 mmol/L (3.5-5.1); Sodium 144 mmol/L (136-145)
[2023-11-22 06:07] LABS: Anion Gap 10 (5-15); Carbon Dioxide 28 mmol/L (20-30)
[2023-11-22 06:08] LABS: Calcium 8.9 mg/dL (8.7-10.4)
[2023-11-22 06:12] LABS: BUN/Creatinine Ratio 5.9 (10.0-20.0); Glucose 79 mg/dL (74-106)
[2023-11-22 06:15] LABS: Blood Urea Nitrogen 37 mg/dL (9-23)
[2023-11-22] MEDS ORDERED: SODIUM CHL 0.9% 1000 ML BAG XX ONE (07:00)
[2023-11-22] MEDS ORDERED: BACDST PO (07:52)
[2023-11-22] MEDS: LABETALOL HCL 20 MG/4 ML VL IV ONE (10:35)
[2023-11-22] MEDS: diphenhdrAMINE HCL 25 MG CAP PO PRN (13:33)
== END 2023-11-22 18:45 | disposition home health service (06) | DRG 207 ==
LOC: ER 10:50 → TELE 13:46 → ICU WEST 13:46 → TELE-EAST 11-17 16:38
PROVIDERS: ADMIT Internal Medicine; ATTEND Emergency Medicine
PROC: 5A09357 Assistance with Respiratory Ventilation, Less than 24 Consecutive Hours, Continuous Positive Airway Pressure (ICD-10-PCS; 2023-11-08)
PROC: 5A1955Z Respiratory Ventilation, Greater than 96 Consecutive Hours (ICD-10-PCS; principal; 2023-11-09)
PROC: 0BH17EZ Insertion of Endotracheal Airway into Trachea, Via Natural or Artificial Opening (ICD-10-PCS; 2023-11-09)
PROC: 5A1D70Z Performance of Urinary Filtration, Intermittent, Less than 6 Hours Per Day (ICD-10-PCS; 2023-11-09)
PROC: 5A1D70Z Performance of Urinary Filtration, Intermittent, Less than 6 Hours Per Day (ICD-10-PCS; 2023-11-12)
PROC: 0B9D8ZX Drainage of Right Middle Lung Lobe, Via Natural or Artificial Opening Endoscopic, Diagnostic (ICD-10-PCS; 2023-11-13)
PROC: 5A1D70Z Performance of Urinary Filtration, Intermittent, Less than 6 Hours Per Day (ICD-10-PCS; 2023-11-13)
PROC: 5A1D70Z Performance of Urinary Filtration, Intermittent, Less than 6 Hours Per Day (ICD-10-PCS; 2023-11-15)
PROC: 5A09357 Assistance with Respiratory Ventilation, Less than 24 Consecutive Hours, Continuous Positive Airway Pressure (ICD-10-PCS; 2023-11-16)
PROC: 5A1D70Z Performance of Urinary Filtration, Intermittent, Less than 6 Hours Per Day (ICD-10-PCS; 2023-11-17)
PROC: 5A1D70Z Performance of Urinary Filtration, Intermittent, Less than 6 Hours Per Day (ICD-10-PCS; 2023-11-20)
DX: J96.01 Acute respiratory failure with hypoxia (principal); E43 Unspecified severe protein-calorie malnutrition; G93.41 Metabolic encephalopathy; N18.6 End stage renal disease; J15.212 Pneumonia due to Methicillin resistant Staphylococcus aureus; I50.33 Acute on chronic diastolic (congestive) heart failure; J44.1 Chronic obstructive pulmonary disease with (acute) exacerbation; I13.2 Hypertensive heart and chronic kidney disease with heart failure and with stage 5 chronic kidney disease, or end stage renal disease; N39.0 Urinary tract infection, site not specified; E87.1 Hypo-osmolality and hyponatremia; E87.3 Alkalosis; T86.19 Other complication of kidney transplant; J44.0 Chronic obstructive pulmonary disease with (acute) lower respiratory infection; I25.10 Atherosclerotic heart disease of native coronary artery without angina pectoris; D63.1 Anemia in chronic kidney disease; G40.909 Epilepsy, unspecified, not intractable, without status epilepticus; D70.9 Neutropenia, unspecified; E11.22 Type 2 diabetes mellitus with diabetic chronic kidney disease; Z88.1 Allergy status to other antibiotic agents; Z99.2 Dependence on renal dialysis; Z79.899 Other long term (current) drug therapy; Z86.73 Personal history of transient ischemic attack (TIA), and cerebral infarction without residual deficits; Z85.51 Personal history of malignant neoplasm of bladder; Z88.0 Allergy status to penicillin; Z95.5 Presence of coronary angioplasty implant and graft; Z68.20 Body mass index [BMI] 20.0-20.9, adult
CPT/HCPCS: 31645; 36415; 36600; 71045; 74176; 80048; 80053; 80069; 80202; 81001; 82728; 82805; 82962; 83540; 83550; 83735; 83880; 84100; 84443; 84484; 85007; 85014; 85018; 85025; 85027; 85610; 86703; 87070; 87077; 87081; 87086; 87088; 87186; 87205; 87340; 90935; 92610; 94002; 94003; 94640; 94660; 97110; 97116; 97163; 97530; 99291; G0378; J0330; J1100; J1642; J2185; J2704; J3490; J7060; P9047

== ENCOUNTER 2023-12-10 18:58 | Inpatient (IN) | payer MEDICARE, MEDICAID ==
[~2023-12-10] VITALS: Ht 172.7 cm; Wt 68.1 kg
[2023-12-10 00:51] VITALS: BP 151/89; PULSE 81; RESP 20; TEMP 98.6; O2SAT 95
[~2023-12-10 18:58] MED LIST changes: -AMLO1TAB22 PO; +AMLO1TAB23 PO; -AZIT-185 PO; +BACDST PO; +LISI10TA34 PO; +ZOFR4T PO
[2023-12-10 19:57] LABS: Basophils # (auto) 0.1 10 ^3/uL (0-0.2); Basophils % (auto) 2.1 % (0.0-2.0); Eosinophils # (auto) 0.3 10 ^3/uL (0-0.8); Eosinophils % (auto) 5.5 % (0.0-7.0); Hematocrit 31.7 % (41.0-53.0); Hemoglobin 10.4 g/dL (13.5-17.5); Lymphocytes # (auto) 0.7 10 ^3/uL (0.4-5.4); Lymphocytes % (auto) 15.2 % (10.0-50.0); Mean Corpuscular Hemoglobin 28.8 pg (28.0-32.0); Mean Corpuscular Hgb Conc. 32.8 g/dL (32.0-36.0); Mean Corpuscular Volume 87.8 fL (80.0-100.0); Monocytes # (auto) 0.3 10 ^3/uL (0-1.3); Monocytes % (auto) 5.7 % (0.0-12.0); Neutrophils # (auto) 3.4 10 ^3/uL (1.6-8.6); Neutrophils % (auto) 71.5 % (37.0-80.0); Nucleated Red Blood Cells % 0.3 %; Platelet Count (auto) 215 10^3/uL (140-450); Red Blood Cells 3.61 10^6/uL (4.5-5.90); White Blood Cell 4.7 10^3/uL (4.4-10.8)
[2023-12-10 19:58] LABS: Red Cell Distribution Width 21.6 % (11.8-14.3)
[2023-12-10 20:17] LABS: Albumin 4.3 g/dL (3.2-4.8); Alkaline Phosphatase 182 U/L (46-116); Anion Gap 12 (5-15); Aspartate Aminotransferase 17 U/L (13-40); BUN/Creatinine Ratio 6.1 (10.0-20.0); Blood Urea Nitrogen 40 mg/dL (9-23); Calcium 9.7 mg/dL (8.7-10.4); Carbon Dioxide 27 mmol/L (20-30); Chloride 100 mmol/L (98-107); Glucose 109 mg/dL (74-106); Potassium 3.9 mmol/L (3.5-5.1); Sodium 139 mmol/L (136-145)
[2023-12-10 20:18] LABS: Bilirubin, Total 0.3 mg/dL (0.2-1.0); Total Protein 7.6 g/dL (5.7-8.2)
[2023-12-10 20:26] LABS: Alanine Aminotransferase < 9 U/L (7-40)
[2023-12-10] MEDS: ALBUTEROL SULF 2.5 MG/0.5ML(0.5%) NEB SOLN NEB ONE (20:52)
[2023-12-10] MEDS: IPRATROPIUM BROM 0.5 MG/2.5ML INH SOL NEB ONE (20:53)
[2023-12-10] MEDS ORDERED: NITROGLYCERIN 0.4 MG SL TAB SL PRN (22:30)
[2023-12-10] MEDS ORDERED: ACETAMINOPHEN 325 MG TAB PO PRN (22:30)
[2023-12-10] MEDS ORDERED: ALBUTEROL SULF 2.5 MG/0.5ML(0.5%) NEB SOLN NEB PRN (22:30)
[2023-12-11] VITALS (7 sets, daily range): BP systolic 135; BP diastolic 78; PULSE 82–93; RESP 20–26; TEMP 97.9; O2SAT 90–96
[2023-12-11] MEDS: methylPREDNISolone SOD SUCC 125 MG/2 ML VL IV ONE (03:22)
[2023-12-11] MEDS: FUROSEMIDE 40 MG/4 ML VIAL IV ONE (03:22)
[2023-12-11] MEDS: ONDANSETRON HCL 4 MG/2 ML VIAL IV PRN (03:23)
[2023-12-11] MEDS: MORPHINE SULFATE INJ 2 MG/ml SYRG IV PRN (03:24)
[2023-12-11] MEDS: SEVELAMER 800 MG TAB PO SCH (08:03)
[2023-12-11] MEDS: HYDROcodone-ACET 5/325MG TAB PO ONE (09:25)
[2023-12-11] MEDS: levETIRAcetam 500 MG TAB PO SCH (10:47)
[2023-12-11] MEDS: CARVEDILOL 12.5 MG TAB PO SCH (10:48)
[2023-12-11] MEDS: hydrALAZINE HCL 25 MG TAB PO SCH (10:48)
[2023-12-11] MEDS: SODIUM CHLORIDE IV SCH (10:49)
[2023-12-11] MEDS: amLODIPine BESYLATE 5 MG TAB PO SCH (10:49)
[2023-12-11] MEDS: MEROPENEM IV SCH (10:49)
[2023-12-11 13:25] LABS: Basophils # (auto) 0 10 ^3/uL (0-0.2); Basophils % (auto) 0.9 % (0.0-2.0); Eosinophils # (auto) 0 10 ^3/uL (0-0.8); Hematocrit 32.3 % (41.0-53.0); Hemoglobin 10.5 g/dL (13.5-17.5); Lymphocytes # (auto) 0.2 10 ^3/uL (0.4-5.4); Mean Corpuscular Hemoglobin 28.4 pg (28.0-32.0); Mean Corpuscular Hgb Conc. 32.7 g/dL (32.0-36.0); Mean Corpuscular Volume 86.9 fL (80.0-100.0); Monocytes # (auto) 0.1 10 ^3/uL (0-1.3); Monocytes % (auto) 1.8 % (0.0-12.0); Neutrophils % (auto) 90.3 % (37.0-80.0); Nucleated Red Blood Cells % 0.2 %; Platelet Count (auto) 204 10^3/uL (140-450); Red Blood Cells 3.71 10^6/uL (4.5-5.90); Red Cell Distribution Width 21.8 % (11.8-14.3); White Blood Cell 3.4 10^3/uL (4.4-10.8)
[2023-12-11 13:45] LABS: Albumin 4.4 g/dL (3.2-4.8); Alkaline Phosphatase 155 U/L (46-116); Anion Gap 17 (5-15); Aspartate Aminotransferase 16 U/L (13-40); Carbon Dioxide 21 mmol/L (20-30); Chloride 99 mmol/L (98-107); Glucose 145 mg/dL (74-106); Potassium 5.1 mmol/L (3.5-5.1); Sodium 137 mmol/L (136-145)
[2023-12-11 13:46] LABS: Total Protein 7.7 g/dL (5.7-8.2)
[2023-12-11 13:47] LABS: Bilirubin, Total 0.3 mg/dL (0.2-1.0)
[2023-12-11 13:49] LABS: Alanine Aminotransferase < 9 U/L (7-40); Blood Urea Nitrogen 52 mg/dL (9-23)
[2023-12-11] MEDS ORDERED: ACETAMINOPHEN 500 MG TAB PO PRN (16:30)
[2023-12-11] MEDS: HYDROcodone-ACET 5/325MG TAB PO PRN (18:14)
[2023-12-11 18:33] LABS: Urine Bacteria None Seen /hpf (None Seen)
[2023-12-11 18:49] LABS: Amphetamine Screen, Urine Neg (NEGATIVE); Barbiturate Scree,Urine Neg (NEGATIVE); Benzodiazephine Screen, Urine Neg (NEGATIVE); Cannabinoid Screen, Urine Neg (NEGATIVE); Cocaine Screen, Urine Neg (NEGATIVE); Opiate Scree,Urine Neg (NEGATIVE); Phencyclidine Screen, Urine Neg (NEGATIVE)
[2023-12-11 18:50] LABS: Urine Blood 2+ /uL (Negative); Urine Clarity Ex.Turbid (Clear); Urine Color Colorless (Yellow); Urine Protein, UAD 1+ (Negative); Urine Specific Gravity 1.008 (1.001-1.035); Urine Urobilinogen Normal (Negative); Urine WBC <1 /hpf (0 - 3)
[2023-12-11] MEDS: SODIUM CHL 0.9% 1000 ML BAG XX ONE (22:30)
[2023-12-11] MEDS: GABAPENTIN 100 MG CAP PO SCH (22:56)
[2023-12-11] MEDS: ATORVASTATIN 20 MG TAB PO SCH (22:57)
[2023-12-12] VITALS (15 sets, daily range): BP systolic 144–178; BP diastolic 78–121; PULSE 69–86; RESP 14–22; TEMP 96.8–98; O2SAT 91–98
[2023-12-12] MEDS: MEROPENEM IV SCH (02:06)
[2023-12-12] MEDS: SODIUM CHLORIDE IV SCH (02:06)
[2023-12-12] MEDS ORDERED: SODIUM CHL 0.9% 1000 ML BAG XX ONE (07:00)
[2023-12-12 07:41] LABS: Anion Gap 9 (5-15); Calcium 9.5 mg/dL (8.7-10.4); Chloride 100 mmol/L (98-107); Potassium 4.4 mmol/L (3.5-5.1); Sodium 140 mmol/L (136-145)
[2023-12-12 07:42] LABS: Basophils # (auto) 0 10 ^3/uL (0-0.2); Basophils % (auto) 0.4 % (0.0-2.0); Eosinophils # (auto) 0 10 ^3/uL (0-0.8); Eosinophils % (auto) 0.1 % (0.0-7.0); Hematocrit 29.4 % (41.0-53.0); Hemoglobin 9.8 g/dL (13.5-17.5); Lymphocytes # (auto) 0.4 10 ^3/uL (0.4-5.4); Lymphocytes % (auto) 12.2 % (10.0-50.0); Mean Corpuscular Hemoglobin 29.1 pg (28.0-32.0); Mean Corpuscular Hgb Conc. 33.5 g/dL (32.0-36.0); Monocytes # (auto) 0.3 10 ^3/uL (0-1.3); Neutrophils # (auto) 2.9 10 ^3/uL (1.6-8.6); Neutrophils % (auto) 78.3 % (37.0-80.0); Nucleated Red Blood Cells % 0.2 %; Platelet Count (auto) 191 10^3/uL (140-450); Red Blood Cells 3.38 10^6/uL (4.5-5.90); Red Cell Distribution Width 22.1 % (11.8-14.3); White Blood Cell 3.7 10^3/uL (4.4-10.8)
[2023-12-12 07:46] LABS: Glucose 99 mg/dL (74-106)
[2023-12-12 07:47] LABS: BUN/Creatinine Ratio 7.1 (10.0-20.0); Blood Urea Nitrogen 43 mg/dL (9-23); LDL Cholesterol 63 mg/dL (< 100); Magnesium 2.3 mg/dL (1.6-2.6); Triglycerides 60 mg/dL (< 150)
[2023-12-12 07:48] LABS: Cholesterol 161 mg/dL (< 200); HDL Cholesterol 76 mg/dL (40-59)
[2023-12-12 07:50] LABS: Carbon Dioxide 31 mmol/L (20-30)
[2023-12-12] MEDS: CLOPIDOGREL BISULFATE 75 MG TAB PO SCH (10:00)
[2023-12-12 11:38] LABS: INR 1.06 (0.9-1.15); Prothrombin Time 11.4 sec (9.3-11.8)
[2023-12-12] MEDS ORDERED: VERAPAMIL 2.5MG/ML INJ 2ML VIAL IV ONE (11:55)
[2023-12-12] MEDS ORDERED: HEPARIN SODIUM (PORCINE) 5000 UNITS/ML 1ML VIAL ONE (11:55)
[2023-12-12] MEDS ORDERED: ANGIOMAX 250 MG VIAL IV ONE (11:55)
[2023-12-12] MEDS ORDERED: MIDAZOLAM HCL 2MG/2ML 2ml VIAL (1mg/ml) ONE (11:56)
[2023-12-12] MEDS ORDERED: fentaNYL CITRATE 100 MCG/2 ML VL ONE (11:56)
[2023-12-12] MEDS ORDERED: SODIUM CHL 0.9% 0 ML ONE (11:56)
[2023-12-12] MEDS ORDERED: IODIXANOL 320MG/ML 100ML BTL IV ONE (12:07)
[2023-12-12] MEDS: hydrALAZINE HCL 20 MG/ML VL ONE (14:55)
[2023-12-12] MEDS: MEROPENEM 500MG IVPB 50 ML IV ONE (14:55)
[2023-12-12] MEDS ORDERED: diphenhdrAMINE HCL 50 MG/1 ML VL IV PRN (16:15)
[2023-12-12] MEDS: EPOETIN ALFA-EPBX 4,000 UNIT/ML VIAL SC ONE (20:59)
[2023-12-13] VITALS (8 sets, daily range): BP systolic 97–169; BP diastolic 59–100; PULSE 70–95; RESP 15–19; TEMP 97.8–98.4; O2SAT 93–100
[2023-12-13 09:44] LABS: Hepatitis B Surface Antigen Negative (Negative)
[2023-12-13 10:05] LABS: Hepatitis B Core IgM Negative
[2023-12-13 10:06] LABS: Hepatitis C Antibody Negative (Negative)
[2023-12-13] MEDS: MEROPENEM 500MG IVPB 50 ML IV SCH (10:18)
[2023-12-13] MEDS ORDERED: GAB100C PO (13:48)
[2023-12-13] MEDS ORDERED: GABA-1308 PO (14:36)
[2023-12-13 16:31] LABS: Hepatitis A Ab IgM Negative
[2023-12-14] MEDS ORDERED: SODIUM CHL 0.9% 1000 ML BAG XX ONE (07:00)
[2023-12-14] MEDS ORDERED: EPOETIN ALFA-EPBX 10,000 UNIT/1ML VIAL SC ONE (21:00)
== END 2023-12-13 16:07 | disposition home or self-care (01) | DRG 286 ==
LOC: ER 18:58 → TELE 22:30 → TELE-EAST 22:30
PROVIDERS: ADMIT Nurse Practitioner; ATTEND Nurse Practitioner Acute Care
PROC: 5A1D70Z Performance of Urinary Filtration, Intermittent, Less than 6 Hours Per Day (ICD-10-PCS; 2023-12-11)
PROC: B211YZZ Fluoroscopy of Multiple Coronary Arteries using Other Contrast (ICD-10-PCS; principal; 2023-12-12)
PROC: 4A023N7 Measurement of Cardiac Sampling and Pressure, Left Heart, Percutaneous Approach (ICD-10-PCS; 2023-12-12)
PROC: B44GZZZ Ultrasonography of Left Lower Extremity Arteries (ICD-10-PCS; 2023-12-12)
DX: I13.2 Hypertensive heart and chronic kidney disease with heart failure and with stage 5 chronic kidney disease, or end stage renal disease (principal); I50.43 Acute on chronic combined systolic (congestive) and diastolic (congestive) heart failure; N18.6 End stage renal disease; L03.115 Cellulitis of right lower limb; L03.116 Cellulitis of left lower limb; G40.909 Epilepsy, unspecified, not intractable, without status epilepticus; E87.70 Fluid overload, unspecified; Z96.643 Presence of artificial hip joint, bilateral; I44.0 Atrioventricular block, first degree; I16.0 Hypertensive urgency; E78.5 Hyperlipidemia, unspecified; I25.10 Atherosclerotic heart disease of native coronary artery without angina pectoris; D63.1 Anemia in chronic kidney disease; G62.9 Polyneuropathy, unspecified; Z99.81 Dependence on supplemental oxygen; Z95.5 Presence of coronary angioplasty implant and graft; Z86.73 Personal history of transient ischemic attack (TIA), and cerebral infarction without residual deficits; Z88.1 Allergy status to other antibiotic agents; Z88.0 Allergy status to penicillin; Z88.8 Allergy status to other drugs, medicaments and biological substances; Z79.899 Other long term (current) drug therapy; Z87.891 Personal history of nicotine dependence; Z99.2 Dependence on renal dialysis
CPT/HCPCS: 36415; 71045; 80048; 80053; 80061; 80074; 80307; 81001; 83036; 83605; 83735; 83880; 84443; 84484; 85025; 85610; 85730; 87081; 90935; 93005; 93458; 93970; 94640; 99152; C1894; G0378; J2185; J2250; J2405; Q9967

== ENCOUNTER 2023-12-17 10:38 | Inpatient (IN) | payer MEDICARE, MEDICAID ==
[~2023-12-17] VITALS: Ht 162.6 cm; Wt 72.5 kg
[~2023-12-17 10:38] MED LIST changes: -BACDST PO; +GAB100C PO; +GABA-1308 PO
[2023-12-17 11:43] LABS: Basophils # (auto) 0.1 10 ^3/uL (0-0.2); Basophils % (auto) 1.3 % (0.0-2.0); Eosinophils # (auto) 0.3 10 ^3/uL (0-0.8); Hematocrit 27.2 % (41.0-53.0); Hemoglobin 9.1 g/dL (13.5-17.5); Lymphocytes # (auto) 0.7 10 ^3/uL (0.4-5.4); Lymphocytes % (auto) 11.3 % (10.0-50.0); Mean Corpuscular Hemoglobin 29.6 pg (28.0-32.0); Mean Corpuscular Hgb Conc. 33.5 g/dL (32.0-36.0); Mean Corpuscular Volume 88.5 fL (80.0-100.0); Monocytes # (auto) 0.6 10 ^3/uL (0-1.3); Monocytes % (auto) 10.1 % (0.0-12.0); Neutrophils # (auto) 4.1 10 ^3/uL (1.6-8.6); Neutrophils % (auto) 71.3 % (37.0-80.0); Platelet Count (auto) 105 10^3/uL (140-450); Red Blood Cells 3.08 10^6/uL (4.5-5.90); Red Cell Distribution Width 21.2 % (11.8-14.3); White Blood Cell 5.8 10^3/uL (4.4-10.8)
[2023-12-17 12:05] LABS: Alanine Aminotransferase 13 U/L (7-40); Albumin 4.3 g/dL (3.2-4.8); Alkaline Phosphatase 163 U/L (46-116); Anion Gap 13 (5-15); Aspartate Aminotransferase 15 U/L (13-40); BUN/Creatinine Ratio 11.3 (10.0-20.0); Calcium 8.5 mg/dL (8.7-10.4); Carbon Dioxide 23 mmol/L (20-30); Chloride 105 mmol/L (98-107); Glucose 91 mg/dL (74-106); Sodium 141 mmol/L (136-145)
[2023-12-17 12:06] LABS: Bilirubin, Total 0.3 mg/dL (0.2-1.0); Total Protein 6.9 g/dL (5.7-8.2)
[2023-12-17 12:10] LABS: Blood Urea Nitrogen 121 mg/dL (9-23)
[2023-12-17] MEDS: ALBUTEROL SULF 2.5 MG/0.5ML(0.5%) NEB SOLN NEB ONE ×2 (12:23→13:15)
[2023-12-17] MEDS: methylPREDNISolone SOD SUCC 125 MG/2 ML VL IV ONE (12:36)
[2023-12-17] MEDS: CALCIUM CHL 100MG/ML 500 MG in D5W 5% 100 ML IV ONE (13:15)
[2023-12-17] MEDS ORDERED: DOCUSATE SOD 100 MG CAP PO PRN (13:30)
[2023-12-17] MEDS ORDERED: ACETAMINOPHEN 325 MG TAB PO PRN (13:30)
[2023-12-17] MEDS ORDERED: ALBUTEROL SULF 2.5 MG/0.5ML(0.5%) NEB SOLN NEB PRN (13:30)
[2023-12-17] MEDS ORDERED: HYDROcodone-ACET 5/325MG TAB PO PRN (13:30)
[2023-12-17] MEDS: SODIUM CHLOR 0.9% PF (SALINE LOCK) 10ML VIAL/SYR IV SCH (14:00)
[2023-12-17] MEDS ORDERED: NITROGLYCERIN 0.4 MG SL TAB SL PRN (14:30)
[2023-12-17 14:33] VITALS: BP 118/70; PULSE 75; RESP 18; TEMP 98.2; O2SAT 98
[2023-12-17] MEDS: InsuLIN REG 1unit/0.01ml Soln (100units/ml) IV ONE (14:36)
[2023-12-17] MEDS: DEXTROSE (50%) 50ML SYRG IV ONE (14:36)
[2023-12-17] MEDS: SODIUM BICARB 8.4% 50Meq/50ml SYR Vial IV ONE (14:37)
[2023-12-17] MEDS: SODIUM ZIRCONIUM CYCL 10 GM PAK PO ONE (14:37)
[2023-12-17] MEDS: SODIUM CHL 0.9% 1000 ML BAG XX ONE (15:45)
[2023-12-17] MEDS: MORPHINE SULFATE INJ 2 MG/ml SYRG IV PRN (18:10)
[2023-12-17 20:00] VITALS: PULSE 85; RESP 15; O2SAT 93
[2023-12-17] MEDS: ONDANSETRON HCL 4 MG/2 ML VIAL IV PRN (22:08)
[2023-12-17] MEDS: CARVEDILOL 3.125 MG TAB PO SCH (22:09)
[2023-12-17] MEDS: EPOETIN ALFA-EPBX 4,000 UNIT/ML VIAL SC ONE (22:09)
[2023-12-17] MEDS: SEVELAMER 800 MG TAB PO SCH (22:10)
[2023-12-17] MEDS: levETIRAcetam 500 mg/100ml 100 ML IV SCH (22:11)
[2023-12-17 22:15] VITALS: O2SAT 93
[2023-12-18] VITALS (9 sets, daily range): BP systolic 140–188; BP diastolic 80–99; PULSE 73–84; RESP 15–20; TEMP 97.5–98; O2SAT 95–98
[2023-12-18] MEDS: diphenhdrAMINE HCL 25 MG CAP PO ONE (00:36)
[2023-12-18 04:22] LABS: Basophils # (auto) 0 10 ^3/uL (0-0.2); Basophils % (auto) 0.2 % (0.0-2.0); Eosinophils # (auto) 0 10 ^3/uL (0-0.8); Eosinophils % (auto) 0.1 % (0.0-7.0); Hematocrit 28.3 % (41.0-53.0); Hemoglobin 9.4 g/dL (13.5-17.5); Lymphocytes # (auto) 0.2 10 ^3/uL (0.4-5.4); Lymphocytes % (auto) 6.6 % (10.0-50.0); Mean Corpuscular Hemoglobin 28.9 pg (28.0-32.0); Mean Corpuscular Hgb Conc. 33.1 g/dL (32.0-36.0); Mean Corpuscular Volume 87.4 fL (80.0-100.0); Monocytes # (auto) 0.1 10 ^3/uL (0-1.3); Monocytes % (auto) 1.7 % (0.0-12.0); Neutrophils # (auto) 3.1 10 ^3/uL (1.6-8.6); Neutrophils % (auto) 91.4 % (37.0-80.0); Nucleated Red Blood Cells % 0.1 %; Platelet Count (auto) 105 10^3/uL (140-450); Red Blood Cells 3.23 10^6/uL (4.5-5.90); White Blood Cell 3.4 10^3/uL (4.4-10.8)
[2023-12-18 04:25] LABS: Red Cell Distribution Width 21.1 % (11.8-14.3)
[2023-12-18 04:31] LABS: Alanine Aminotransferase 13 U/L (7-40); Albumin 4.7 g/dL (3.2-4.8); Alkaline Phosphatase 143 U/L (46-116); Anion Gap 11 (5-15); Aspartate Aminotransferase 14 U/L (13-40); BUN/Creatinine Ratio 8.9 (10.0-20.0); Calcium 9.7 mg/dL (8.7-10.4); Carbon Dioxide 28 mmol/L (20-30); Chloride 99 mmol/L (98-107); Glucose 129 mg/dL (74-106); Sodium 138 mmol/L (136-145)
[2023-12-18 04:32] LABS: Bilirubin, Total 0.4 mg/dL (0.2-1.0); Total Protein 7.8 g/dL (5.7-8.2)
[2023-12-18 04:39] LABS: Blood Urea Nitrogen 57 mg/dL (9-23)
[2023-12-18 04:44] LABS: Potassium 5.8 mmol/L (3.5-5.1)
[2023-12-18] MEDS: SODIUM ZIRCONIUM CYCL 10 GM PAK PO ONE (05:09)
[2023-12-18] MEDS: B-COMPLEX W/ C & FOLIC ACID(NEPHROVITE TAB) PO SCH (10:08)
[2023-12-18] MEDS: MORPHINE SULFATE INJ 2 MG/ml SYRG IV PRN (10:14)
[2023-12-18] MEDS: hydrALAZINE HCL 20 MG/ML VL IV PRN (16:38)
[2023-12-19] VITALS (8 sets, daily range): BP systolic 123–171; BP diastolic 73–103; PULSE 69–75; RESP 16–20; TEMP 36.7; O2SAT 93–98
[2023-12-19] MEDS ORDERED: SODIUM CHL 0.9% 1000 ML BAG XX ONE (10:00)
[2023-12-19] MEDS ORDERED: EPOETIN ALFA-EPBX 4,000 UNIT/ML VIAL SC ONE (21:00)
== END 2023-12-19 19:05 | disposition home or self-care (01) | DRG 189 ==
LOC: ER 10:38 → TELE 14:22 → TELE-WESTW 12-18 08:59
PROVIDERS: ADMIT Nurse Practitioner Family; ATTEND Nurse Practitioner Acute Care
PROC: 05HA33Z Insertion of Infusion Device into Left Brachial Vein, Percutaneous Approach (ICD-10-PCS; principal; 2023-12-17)
PROC: B54NZZA Ultrasonography of Left Upper Extremity Veins, Guidance (ICD-10-PCS; 2023-12-17)
PROC: 5A1D70Z Performance of Urinary Filtration, Intermittent, Less than 6 Hours Per Day (ICD-10-PCS; 2023-12-17)
PROC: 5A1D70Z Performance of Urinary Filtration, Intermittent, Less than 6 Hours Per Day (ICD-10-PCS; 2023-12-19)
DX: J96.21 Acute and chronic respiratory failure with hypoxia (principal); N18.6 End stage renal disease; J44.1 Chronic obstructive pulmonary disease with (acute) exacerbation; I13.2 Hypertensive heart and chronic kidney disease with heart failure and with stage 5 chronic kidney disease, or end stage renal disease; E87.5 Hyperkalemia; D63.8 Anemia in other chronic diseases classified elsewhere; E78.5 Hyperlipidemia, unspecified; I50.9 Heart failure, unspecified; G62.9 Polyneuropathy, unspecified; E87.6 Hypokalemia; I25.10 Atherosclerotic heart disease of native coronary artery without angina pectoris; G40.909 Epilepsy, unspecified, not intractable, without status epilepticus; Z99.2 Dependence on renal dialysis; Z88.1 Allergy status to other antibiotic agents; Z88.0 Allergy status to penicillin; Z88.8 Allergy status to other drugs, medicaments and biological substances; Z79.899 Other long term (current) drug therapy; Z86.73 Personal history of transient ischemic attack (TIA), and cerebral infarction without residual deficits; Z95.5 Presence of coronary angioplasty implant and graft
CPT/HCPCS: 36415; 80053; 82962; 83880; 84132; 84484; 85025; 90935; 94640; G0378; J1815; J2405; J7060

== ENCOUNTER 2023-12-30 16:43 | Emergency (ER) | payer MEDICARE, MEDICAID ==
[~2023-12-30] VITALS: Ht 162.6 cm; Wt 72.5 kg
[~2023-12-30 16:43] MED LIST changes: -GAB100C PO
[2023-12-30 17:44] LABS: Basophils # (auto) 0.1 10 ^3/uL (0-0.2); Basophils % (auto) 1.8 % (0.0-2.0); Eosinophils # (auto) 0.2 10 ^3/uL (0-0.8); Eosinophils % (auto) 4.1 % (0.0-7.0); Hematocrit 30.2 % (41.0-53.0); Hemoglobin 9.9 g/dL (13.5-17.5); Lymphocytes # (auto) 0.8 10 ^3/uL (0.4-5.4); Mean Corpuscular Hemoglobin 29.2 pg (28.0-32.0); Mean Corpuscular Hgb Conc. 32.9 g/dL (32.0-36.0); Mean Corpuscular Volume 88.7 fL (80.0-100.0); Monocytes # (auto) 0.2 10 ^3/uL (0-1.3); Neutrophils # (auto) 2.7 10 ^3/uL (1.6-8.6); Neutrophils % (auto) 67.1 % (37.0-80.0); Nucleated Red Blood Cells % 0.2 %; Platelet Count (auto) 142 10^3/uL (140-450)
[2023-12-30 17:48] LABS: Chloride 100 mmol/L (98-107); Potassium 4.9 mmol/L (3.5-5.1); Sodium 141 mmol/L (136-145)
[2023-12-30 17:49] LABS: Anion Gap 13 (5-15); Calcium 9.3 mg/dL (8.7-10.4); Carbon Dioxide 28 mmol/L (20-30); Red Cell Distribution Width 21.3 % (11.8-14.3)
[2023-12-30 17:54] LABS: Blood Urea Nitrogen 55 mg/dL (9-23); Glucose 75 mg/dL (74-106)
[2023-12-30] MEDS ORDERED: ELAS-2314 XX (19:20)
[2023-12-30 20:06] VITALS: BP 155/93; PULSE 81; RESP 17; TEMP 98; O2SAT 98
== END 2023-12-30 19:30 | disposition home or self-care (01) ==
LOC: ER 16:43
DX: R60.0 Localized edema (principal); I13.2 Hypertensive heart and chronic kidney disease with heart failure and with stage 5 chronic kidney disease, or end stage renal disease; N18.6 End stage renal disease; I50.9 Heart failure, unspecified; J44.9 Chronic obstructive pulmonary disease, unspecified; F12.10 Cannabis abuse, uncomplicated; Z87.891 Personal history of nicotine dependence; Z86.73 Personal history of transient ischemic attack (TIA), and cerebral infarction without residual deficits
CPT/HCPCS: 36415; 71045; 80048; 83880; 84484; 85025; 93005

== ENCOUNTER 2024-01-15 16:12 | Inpatient (IN) | payer MEDICARE, MEDICAID ==
[~2024-01-15] VITALS: Ht 172.7 cm; Wt 59.0 kg
[~2024-01-15 16:12] MED LIST changes: +ELAS-2314 XX
[2024-01-15] MEDS: MAALOX PLUS or MAALOX 30 ML PO ONE (16:30)
[2024-01-15 17:25] LABS: Basophils # (auto) 0.1 10 ^3/uL (0-0.2); Basophils % (auto) 2.1 % (0.0-2.0); Eosinophils # (auto) 0.2 10 ^3/uL (0-0.8); Eosinophils % (auto) 4.7 % (0.0-7.0); Hematocrit 35.8 % (41.0-53.0); Hemoglobin 11.8 g/dL (13.5-17.5); Lymphocytes # (auto) 0.5 10 ^3/uL (0.4-5.4); Lymphocytes % (auto) 14.8 % (10.0-50.0); Mean Corpuscular Hemoglobin 28.7 pg (28.0-32.0); Mean Corpuscular Hgb Conc. 32.9 g/dL (32.0-36.0); Mean Corpuscular Volume 87.1 fL (80.0-100.0); Monocytes # (auto) 0.4 10 ^3/uL (0-1.3); Monocytes % (auto) 12.5 % (0.0-12.0); Neutrophils # (auto) 2.2 10 ^3/uL (1.6-8.6); Neutrophils % (auto) 65.9 % (37.0-80.0); Nucleated Red Blood Cells % 0.1 %; Platelet Count (auto) 127 10^3/uL (140-450); Red Blood Cells 4.11 10^6/uL (4.5-5.90); Red Cell Distribution Width 17.5 % (11.8-14.3); White Blood Cell 3.3 10^3/uL (4.4-10.8)
[2024-01-15 17:46] LABS: Albumin 4.4 g/dL (3.2-4.8); Alkaline Phosphatase 136 U/L (46-116); Anion Gap 9 (5-15); Aspartate Aminotransferase 18 U/L (13-40); BUN/Creatinine Ratio 6.3 (10.0-20.0); Bilirubin, Total 0.4 mg/dL (0.2-1.0); Blood Urea Nitrogen 23 mg/dL (9-23); Calcium 9.8 mg/dL (8.7-10.4); Carbon Dioxide 32 mmol/L (20-31); Chloride 96 mmol/L (98-107); Glucose 89 mg/dL (74-106); Sodium 137 mmol/L (136-145); Total Protein 7.5 g/dL (5.7-8.2)
[2024-01-15 18:37] VITALS: PULSE 78; RESP 14; O2SAT 95
[2024-01-15 18:38] LABS: Alanine Aminotransferase < 9 U/L (7-40)
[2024-01-15 19:30] VITALS: PULSE 86; RESP 16; O2SAT 97
[2024-01-15] MEDS: PANTOPRAZOLE 40 MG/10 ML VIAL INJ IV ONE (20:32)
[2024-01-15] MEDS: PANTOPRAZOLE 40 MG TAB PO ONE (21:28)
[2024-01-15] MEDS ORDERED: ONDANSETRON HCL 4 MG/2 ML VIAL IV PRN (22:45)
[2024-01-15] MEDS: HYDROcodone-ACET 5/325MG TAB PO PRN (23:17)
[2024-01-16] MEDS: KETOROLAC TROMETH 30 MG/ML 1ML VIAL IV ONE ×2 (00:28→20:35)
[2024-01-16 03:32] LABS: Basophils # (auto) 0.1 10 ^3/uL (0-0.2); Basophils % (auto) 2.6 % (0.0-2.0); Eosinophils # (auto) 0.2 10 ^3/uL (0-0.8); Hematocrit 36.4 % (41.0-53.0); Lymphocytes # (auto) 0.8 10 ^3/uL (0.4-5.4); Lymphocytes % (auto) 23.9 % (10.0-50.0); Mean Corpuscular Hgb Conc. 32.9 g/dL (32.0-36.0); Monocytes # (auto) 0.4 10 ^3/uL (0-1.3); Monocytes % (auto) 11.7 % (0.0-12.0); Neutrophils # (auto) 1.9 10 ^3/uL (1.6-8.6); Neutrophils % (auto) 55.8 % (37.0-80.0); Platelet Count (auto) 113 10^3/uL (140-450); Red Blood Cells 4.13 10^6/uL (4.5-5.90); Red Cell Distribution Width 17.5 % (11.8-14.3); White Blood Cell 3.3 10^3/uL (4.4-10.8)
[2024-01-16 03:52] LABS: Calcium 9.9 mg/dL (8.7-10.4); Chloride 97 mmol/L (98-107); Sodium 135 mmol/L (136-145)
[2024-01-16 03:53] LABS: Anion Gap 10 (5-15); Carbon Dioxide 28 mmol/L (20-31)
[2024-01-16 03:58] LABS: BUN/Creatinine Ratio 5.7 (10.0-20.0); Blood Urea Nitrogen 28 mg/dL (9-23); Glucose 82 mg/dL (74-106)
[2024-01-16 04:30] LABS: Potassium 5.6 mmol/L (3.5-5.1)
[2024-01-16] MEDS: diphenhdrAMINE HCL 25 MG CAP PO PRN (04:35)
[2024-01-16] MEDS: SODIUM ZIRCONIUM CYCL 10 GM PAK PO ONE (05:44)
[2024-01-16] MEDS: levETIRAcetam 500 MG TAB PO SCH (08:08)
[2024-01-16] MEDS: GABAPENTIN 100 MG CAP PO SCH (08:08)
[2024-01-16] MEDS: PANTOPRAZOLE 40 MG/10 ML VIAL INJ IV SCH (08:10)
[2024-01-16] MEDS: CARVEDILOL 12.5 MG TAB PO SCH (08:10)
[2024-01-16] MEDS: amLODIPine BESYLATE 5 MG TAB PO SCH (08:12)
[2024-01-16] MEDS: SEVELAMER 800 MG TAB PO SCH (08:13)
[2024-01-16] MEDS: SODIUM CHL 0.9% 1000 ML BAG XX ONE (12:15)
[2024-01-16] MEDS: diphenhdrAMINE HCL 50 MG/1 ML VL IV ONE (15:27)
[2024-01-16 20:00] VITALS: PULSE 84; RESP 18; O2SAT 95
[2024-01-16 23:17] VITALS: BP_SYST 134; BP_SYST 154; BP_DIAS 112; BP_DIAS 85; PULSE 63; RESP 16; RESP 18; TEMP 97.8; O2SAT 96
[2024-01-17] VITALS (8 sets, daily range): BP systolic 127–152; BP diastolic 65–91; PULSE 60–74; RESP 17–20; TEMP 97.5–98.3; O2SAT 93–99
[2024-01-17 00:05] LABS: Urine Blood 2+ /uL (Negative); Urine Clarity Ex.Turbid (Clear); Urine Color Brown (Yellow); Urine Protein, UAD 1+ (Negative); Urine Specific Gravity 1.006 (1.001-1.035); Urine Urobilinogen Normal (Negative); Urine pH 7.5 (5.0-9.0)
[2024-01-17 10:32] LABS: Basophils # (auto) 0.1 10 ^3/uL (0-0.2); Basophils % (auto) 2.1 % (0.0-2.0); Eosinophils # (auto) 0.2 10 ^3/uL (0-0.8); Hematocrit 38.8 % (41.0-53.0); Hemoglobin 12.7 g/dL (13.5-17.5); Lymphocytes # (auto) 0.9 10 ^3/uL (0.4-5.4); Lymphocytes % (auto) 27.2 % (10.0-50.0); Mean Corpuscular Hemoglobin 29.1 pg (28.0-32.0); Mean Corpuscular Hgb Conc. 32.7 g/dL (32.0-36.0); Mean Corpuscular Volume 89.2 fL (80.0-100.0); Monocytes # (auto) 0.4 10 ^3/uL (0-1.3); Monocytes % (auto) 12.5 % (0.0-12.0); Neutrophils # (auto) 1.8 10 ^3/uL (1.6-8.6); Neutrophils % (auto) 53.2 % (37.0-80.0); Nucleated Red Blood Cells % 0.1 %; Platelet Count (auto) 129 10^3/uL (140-450); Red Blood Cells 4.35 10^6/uL (4.5-5.90); Red Cell Distribution Width 17.1 % (11.8-14.3); White Blood Cell 3.3 10^3/uL (4.4-10.8)
[2024-01-17 10:46] LABS: Hepatitis B Surface Antigen Negative (Negative)
[2024-01-17 10:50] LABS: Hepatitis B Surface Antigen Negative (Negative)
[2024-01-17 10:56] LABS: Alanine Aminotransferase 11 U/L (7-40); Albumin 4.4 g/dL (3.2-4.8); Alkaline Phosphatase 119 U/L (46-116); Anion Gap 7 (5-15); BUN/Creatinine Ratio 6.1 (10.0-20.0); Bilirubin, Total 0.3 mg/dL (0.2-1.0); Blood Urea Nitrogen 27 mg/dL (9-23); Calcium 9.7 mg/dL (8.7-10.4); Carbon Dioxide 32 mmol/L (20-31); Chloride 99 mmol/L (98-107); Glucose 79 mg/dL (74-106); Potassium 5.4 mmol/L (3.5-5.1); Sodium 138 mmol/L (136-145); Total Protein 7.4 g/dL (5.7-8.2)
[2024-01-17 11:08] LABS: Hepatitis A Ab IgM Negative; Hepatitis B Core IgM Negative; Hepatitis C Antibody Negative (Negative)
[2024-01-17 11:12] LABS: Hepatitis C Antibody Negative (Negative)
[2024-01-17 11:17] LABS: Aspartate Aminotransferase 17 U/L (13-40)
[2024-01-17] MEDS: LORazepam 0.5 MG TAB PO PRN (12:15)
[2024-01-18 01:00] VITALS: BP 152/53; PULSE 57; RESP 18; TEMP 97.6; O2SAT 95
[2024-01-18 05:00] VITALS: BP 161/85; PULSE 64; RESP 20; TEMP 97.7; O2SAT 99
[2024-01-18 09:00] VITALS: BP 169/95; PULSE 74; RESP 20; TEMP 98.4; O2SAT 94
[2024-01-18 11:09] LABS: Basophils # (auto) 0.1 10 ^3/uL (0-0.2); Basophils % (auto) 1.1 % (0.0-2.0); Eosinophils # (auto) 0.1 10 ^3/uL (0-0.8); Eosinophils % (auto) 1.1 % (0.0-7.0); Hematocrit 38.6 % (41.0-53.0); Hemoglobin 12.7 g/dL (13.5-17.5); Lymphocytes # (auto) 0.6 10 ^3/uL (0.4-5.4); Lymphocytes % (auto) 12.8 % (10.0-50.0); Mean Corpuscular Hemoglobin 29.1 pg (28.0-32.0); Mean Corpuscular Hgb Conc. 32.9 g/dL (32.0-36.0); Mean Corpuscular Volume 88.5 fL (80.0-100.0); Monocytes # (auto) 0.6 10 ^3/uL (0-1.3); Neutrophils # (auto) 3.4 10 ^3/uL (1.6-8.6); Nucleated Red Blood Cells % 0.2 %; Platelet Count (auto) 136 10^3/uL (140-450); Red Blood Cells 4.37 10^6/uL (4.5-5.90); Red Cell Distribution Width 16.5 % (11.8-14.3); White Blood Cell 4.7 10^3/uL (4.4-10.8)
[2024-01-18 11:28] LABS: INR 1.08 (0.9-1.15); Prothrombin Time 11.4 sec (9.3-11.8)
[2024-01-18 11:34] LABS: Alanine Aminotransferase 10 U/L (7-40); Albumin 4.3 g/dL (3.2-4.8); Alkaline Phosphatase 113 U/L (46-116); Anion Gap 9 (5-15); Aspartate Aminotransferase 21 U/L (13-40); BUN/Creatinine Ratio 6.8 (10.0-20.0); Bilirubin, Total 0.7 mg/dL (0.2-1.0); Calcium 9.6 mg/dL (8.7-10.4); Carbon Dioxide 28 mmol/L (20-31); Chloride 97 mmol/L (98-107); Glucose 100 mg/dL (74-106); Sodium 134 mmol/L (136-145); Total Protein 7.4 g/dL (5.7-8.2)
[2024-01-18 11:59] LABS: Potassium 7.5 mmol/L (3.5-5.1)
[2024-01-18 12:00] LABS: Blood Urea Nitrogen 46 mg/dL (9-23)
[2024-01-18 13:00] VITALS: BP 171/98; PULSE 59; RESP 16; TEMP 98.9; O2SAT 93
[2024-01-18 16:27] VITALS: BP 153/84; PULSE 61; RESP 16; TEMP 98.6; O2SAT 96
[2024-01-18 21:00] VITALS: BP 130/88; PULSE 92; RESP 20; TEMP 99; O2SAT 88
[2024-01-18] MEDS: SUCRALFATE 1 GM/10 ML ORAL SUSP GT SCH (21:58)
[2024-01-18] MEDS: MUPIROCIN 2% OINT 15gm or 22gm FOR MRSA NARES EACHNOSTRI SCH (22:01)
[2024-01-19] VITALS (8 sets, daily range): BP systolic 106–132; BP diastolic 55–78; PULSE 79–90; RESP 18–20; TEMP 97.8–101.9; O2SAT 88–99
[2024-01-19] MEDS: ACETAMINOPHEN 325 MG TAB PO PRN (01:51)
[2024-01-19] MEDS ORDERED: PANT40T PO (10:59)
[2024-01-19] MEDS ORDERED: SUCR1TAB31 PO (10:59)
[2024-01-19] MEDS: SODIUM CHL 0.9% 1000 ML BAG XX ONE (14:30)
[2024-01-19 16:45] LABS: Chloride 97 mmol/L (98-107); Sodium 134 mmol/L (136-145)
[2024-01-19 16:46] LABS: Anion Gap 10 (5-15); Carbon Dioxide 27 mmol/L (20-31)
[2024-01-19 16:47] LABS: Calcium 9.1 mg/dL (8.7-10.4)
[2024-01-19 16:51] LABS: BUN/Creatinine Ratio 5.8 (10.0-20.0); Blood Urea Nitrogen 40 mg/dL (9-23); Glucose 99 mg/dL (74-106)
[2024-01-19 17:11] LABS: Potassium 6.4 mmol/L (3.5-5.1)
[2024-01-20] VITALS (7 sets, daily range): BP systolic 103–134; BP diastolic 42–79; PULSE 80–100; RESP 17–21; TEMP 97.6–103; O2SAT 92–98
[2024-01-20] MEDS: SODIUM CHL 0.9% 1000 ML BAG XX ONE (06:30)
[2024-01-20 11:03] LABS: Chloride 100 mmol/L (98-107); Potassium 3.7 mmol/L (3.5-5.1); Sodium 139 mmol/L (136-145)
[2024-01-20 11:04] LABS: Anion Gap 11 (5-15); Calcium 9.7 mg/dL (8.7-10.4); Carbon Dioxide 28 mmol/L (20-31)
[2024-01-20 11:09] LABS: BUN/Creatinine Ratio 6.1 (10.0-20.0); Blood Urea Nitrogen 21 mg/dL (9-23); Glucose 90 mg/dL (74-106)
[2024-01-20] MEDS ORDERED: VANCOMYCIN PER PHARMACY 0 MG IV SCH (11:45)
[2024-01-20 11:58] LABS: Basophils # (auto) 0.1 10 ^3/uL (0-0.2); Basophils % (auto) 1.2 % (0.0-2.0); Eosinophils # (auto) 0 10 ^3/uL (0-0.8); Eosinophils % (auto) 0.1 % (0.0-7.0); Hematocrit 37.1 % (41.0-53.0); Hemoglobin 12.3 g/dL (13.5-17.5); Lymphocytes # (auto) 0.6 10 ^3/uL (0.4-5.4); Lymphocytes % (auto) 9.4 % (10.0-50.0); Mean Corpuscular Hemoglobin 28.5 pg (28.0-32.0); Mean Corpuscular Volume 86.3 fL (80.0-100.0); Monocytes # (auto) 0.4 10 ^3/uL (0-1.3); Monocytes % (auto) 5.8 % (0.0-12.0); Neutrophils # (auto) 5.2 10 ^3/uL (1.6-8.6); Neutrophils % (auto) 83.5 % (37.0-80.0); Nucleated Red Blood Cells % 0.1 %; Platelet Count (auto) 103 10^3/uL (140-450); Red Cell Distribution Width 16.7 % (11.8-14.3); White Blood Cell 6.3 10^3/uL (4.4-10.8)
[2024-01-20] MEDS: VANCOMYCIN 1GM/200ML PREMIX 250 ML IV ONE (16:46)
[2024-01-21] VITALS (25 sets, daily range): BP systolic 65–122; BP diastolic 34–59; PULSE 67–83; RESP 12–31; TEMP 96.9–97.7; O2SAT 91–100
[2024-01-21 07:41] LABS: Basophils # (auto) 0 10 ^3/uL (0-0.2); Basophils % (auto) 0.6 % (0.0-2.0); Eosinophils # (auto) 0 10 ^3/uL (0-0.8); Eosinophils % (auto) 0.1 % (0.0-7.0); Hematocrit 32.2 % (41.0-53.0); Hemoglobin 10.4 g/dL (13.5-17.5); Lymphocytes # (auto) 0.8 10 ^3/uL (0.4-5.4); Lymphocytes % (auto) 10.8 % (10.0-50.0); Mean Corpuscular Hemoglobin 28.5 pg (28.0-32.0); Mean Corpuscular Hgb Conc. 32.4 g/dL (32.0-36.0); Mean Corpuscular Volume 88.2 fL (80.0-100.0); Monocytes # (auto) 1.1 10 ^3/uL (0-1.3); Monocytes % (auto) 15.5 % (0.0-12.0); Neutrophils # (auto) 5.2 10 ^3/uL (1.6-8.6); Nucleated Red Blood Cells % 0.4 %; Platelet Count (auto) 72 10^3/uL (140-450); Red Blood Cells 3.66 10^6/uL (4.5-5.90); Red Cell Distribution Width 17.4 % (11.8-14.3); White Blood Cell 7.1 10^3/uL (4.4-10.8)
[2024-01-21] MEDS: ALBUMIN 25% 50 ML IV SCH (19:12)
[2024-01-21 20:32] LABS: Alanine Aminotransferase 35 U/L (7-40); Albumin 3.6 g/dL (3.2-4.8); Alkaline Phosphatase 95 U/L (46-116); Anion Gap 11 (5-15); Aspartate Aminotransferase 59 U/L (13-40); BUN/Creatinine Ratio 4.8 (10.0-20.0); Bilirubin, Total 0.8 mg/dL (0.2-1.0); Calcium 9.3 mg/dL (8.7-10.4); Carbon Dioxide 24 mmol/L (20-31); Chloride 97 mmol/L (98-107); Glucose 111 mg/dL (74-106); Potassium 4.7 mmol/L (3.5-5.1); Total Protein 6.6 g/dL (5.7-8.2)
[2024-01-21 20:45] LABS: Blood Urea Nitrogen 34 mg/dL (9-23); Sodium 132 mmol/L (136-145)
[2024-01-21 20:46] LABS: Base Excess 1.6 mmol/L (-2.0-3.0)
[2024-01-21] MEDS: MIDODRINE HCL 10 MG TAB PO SCH (20:52)
[2024-01-21] MEDS: MIDODRINE HCL 10 MG TAB ONE (20:54)
[2024-01-21 21:30] LABS: Lactic Acid w/Reflex 2.5 mmol/L (0.4-2.0)
[2024-01-21] MEDS: ALBUMIN 5% 250 ML IV ONE (22:47)
[2024-01-22] VITALS (92 sets, daily range): BP systolic 71–121; BP diastolic 30–82; PULSE 61–94; RESP 12–35; TEMP 97.3–99.1; O2SAT 75–100
[2024-01-22] MEDS: NOREPINEPHRINE 8 MG/250ML KIT 250 ML IV SCH (01:21)
[2024-01-22] MEDS: NOREPINEPHRINE 8 MG/250ML KIT 250 ML IV ONE (01:21)
[2024-01-22] MEDS ORDERED: POTASSIUM EFFERVESENT TAB 25 MEQ PO ONE (06:00)
[2024-01-22] MEDS ORDERED: MIDODRINE HCL 10 MG TAB PO SCH (06:00)
[2024-01-22] MEDS: SODIUM CHL 0.9% 1000 ML BAG XX ONE (07:00)
[2024-01-22 12:34] LABS: Basophils # (auto) 0 10 ^3/uL (0-0.2); Basophils % (auto) 0.2 % (0.0-2.0); Eosinophils # (auto) 0 10 ^3/uL (0-0.8); Eosinophils % (auto) 0.2 % (0.0-7.0); Hematocrit 31.9 % (41.0-53.0); Hemoglobin 10.4 g/dL (13.5-17.5); Lymphocytes # (auto) 0.5 10 ^3/uL (0.4-5.4); Lymphocytes % (auto) 5.9 % (10.0-50.0); Mean Corpuscular Hemoglobin 28.3 pg (28.0-32.0); Mean Corpuscular Hgb Conc. 32.6 g/dL (32.0-36.0); Mean Corpuscular Volume 86.9 fL (80.0-100.0); Monocytes # (auto) 1.2 10 ^3/uL (0-1.3); Monocytes % (auto) 14.3 % (0.0-12.0); Neutrophils # (auto) 6.4 10 ^3/uL (1.6-8.6); Neutrophils % (auto) 79.4 % (37.0-80.0); Nucleated Red Blood Cells % 0.1 %; Platelet Count (auto) 66 10^3/uL (140-450); Red Blood Cells 3.67 10^6/uL (4.5-5.90); White Blood Cell 8.1 10^3/uL (4.4-10.8)
[2024-01-22 12:48] LABS: Alanine Aminotransferase 26 U/L (7-40); Albumin 3.6 g/dL (3.2-4.8); Alkaline Phosphatase 116 U/L (46-116); Anion Gap 11 (5-15); Aspartate Aminotransferase 28 U/L (13-40); BUN/Creatinine Ratio 8.7 (10.0-20.0); Bilirubin, Total 0.9 mg/dL (0.2-1.0); Calcium 9.4 mg/dL (8.7-10.4); Carbon Dioxide 26 mmol/L (20-31); Chloride 96 mmol/L (98-107); Glucose 107 mg/dL (74-106); Potassium 4.7 mmol/L (3.5-5.1); Sodium 133 mmol/L (136-145); Total Protein 6.2 g/dL (5.7-8.2)
[2024-01-22 12:51] LABS: Blood Urea Nitrogen 69 mg/dL (9-23)
[2024-01-22] MEDS: VANCOMYCIN 1GM/200ML PREMIX 250 ML IV ONE (20:45)
[2024-01-22] MEDS: EPOETIN ALFA-EPBX 4,000 UNIT/ML VIAL SC ONE (21:54)
[2024-01-23] VITALS (82 sets, daily range): BP systolic 85–121; BP diastolic 47–82; PULSE 81–96; RESP 11–36; TEMP 96.9–98.6; O2SAT 75–100
[2024-01-23 05:09] LABS: Basophils # (auto) 0 10 ^3/uL (0-0.2); Basophils % (auto) 0.3 % (0.0-2.0); Eosinophils # (auto) 0 10 ^3/uL (0-0.8); Eosinophils % (auto) 0.2 % (0.0-7.0); Hematocrit 34.9 % (41.0-53.0); Lymphocytes # (auto) 0.8 10 ^3/uL (0.4-5.4); Lymphocytes % (auto) 6.5 % (10.0-50.0); Mean Corpuscular Hemoglobin 27.3 pg (28.0-32.0); Mean Corpuscular Hgb Conc. 31.6 g/dL (32.0-36.0); Mean Corpuscular Volume 86.3 fL (80.0-100.0); Monocytes # (auto) 1.8 10 ^3/uL (0-1.3); Monocytes % (auto) 14.2 % (0.0-12.0); Neutrophils # (auto) 10.2 10 ^3/uL (1.6-8.6); Neutrophils % (auto) 78.8 % (37.0-80.0); Nucleated Red Blood Cells % 0.1 %; Platelet Count (auto) 76 10^3/uL (140-450); Red Blood Cells 4.04 10^6/uL (4.5-5.90); Red Cell Distribution Width 17.4 % (11.8-14.3); White Blood Cell 12.9 10^3/uL (4.4-10.8)
[2024-01-23 05:28] LABS: Alanine Aminotransferase 20 U/L (7-40); Albumin 4.1 g/dL (3.2-4.8); Alkaline Phosphatase 140 U/L (46-116); Anion Gap 8 (5-15); Aspartate Aminotransferase 21 U/L (13-40); Calcium 9.8 mg/dL (8.7-10.4); Carbon Dioxide 30 mmol/L (20-31); Chloride 97 mmol/L (98-107); Glucose 115 mg/dL (74-106); Potassium 3.9 mmol/L (3.5-5.1); Sodium 135 mmol/L (136-145)
[2024-01-23 05:29] LABS: Bilirubin, Total 1.1 mg/dL (0.2-1.0); Total Protein 6.7 g/dL (5.7-8.2)
[2024-01-23 05:31] LABS: Blood Urea Nitrogen 36 mg/dL (9-23)
[2024-01-23 06:08] LABS: Base Excess 1.3 mmol/L (-2.0-3.0)
[2024-01-23 09:31] LABS: Base Excess 1.9 mmol/L (-2.0-3.0)
[2024-01-23 10:32] LABS: Base Excess 1.5 mmol/L (-2.0-3.0)
[2024-01-24] VITALS (92 sets, daily range): BP systolic 80–120; BP diastolic 40–82; PULSE 73–98; RESP 15–38; TEMP 98.1–99.9; O2SAT 76–100
[2024-01-24] MEDS: SODIUM CHL 0.9% 1000 ML BAG XX ONE (07:00)
[2024-01-24 07:14] LABS: Chloride 98 mmol/L (98-107); Potassium 4.3 mmol/L (3.5-5.1); Sodium 135 mmol/L (136-145)
[2024-01-24 07:15] LABS: Anion Gap 11 (5-15); Calcium 9.5 mg/dL (8.7-10.4); Carbon Dioxide 26 mmol/L (20-31)
[2024-01-24 07:20] LABS: Glucose 105 mg/dL (74-106)
[2024-01-24 07:21] LABS: BUN/Creatinine Ratio 9.3 (10.0-20.0)
[2024-01-24 07:22] LABS: Blood Urea Nitrogen 64 mg/dL (9-23)
[2024-01-24 07:52] LABS: Basophils # (auto) 0.1 10 ^3/uL (0-0.2); Basophils % (auto) 0.6 % (0.0-2.0); Eosinophils # (auto) 0 10 ^3/uL (0-0.8); Eosinophils % (auto) 0.4 % (0.0-7.0); Hematocrit 36.8 % (41.0-53.0); Hemoglobin 11.7 g/dL (13.5-17.5); Lymphocytes % (auto) 9.3 % (10.0-50.0); Mean Corpuscular Hemoglobin 28.6 pg (28.0-32.0); Mean Corpuscular Hgb Conc. 31.8 g/dL (32.0-36.0); Mean Corpuscular Volume 89.8 fL (80.0-100.0); Monocytes # (auto) 1.7 10 ^3/uL (0-1.3); Neutrophils # (auto) 8.3 10 ^3/uL (1.6-8.6); Neutrophils % (auto) 74.7 % (37.0-80.0); Nucleated Red Blood Cells % 0.2 %; Platelet Count (auto) 70 10^3/uL (140-450); Red Cell Distribution Width 18.2 % (11.8-14.3); White Blood Cell 11.2 10^3/uL (4.4-10.8)
[2024-01-24] MEDS: ALBUMIN 25% 100 ML IV ONE (15:02)
[2024-01-25] VITALS (56 sets, daily range): BP systolic 80–135; BP diastolic 41–87; PULSE 75–96; RESP 13–50; TEMP 97.9–100.2; O2SAT 83–100
[2024-01-25 05:12] LABS: Basophils # (auto) 0.1 10 ^3/uL (0-0.2); Basophils % (auto) 0.6 % (0.0-2.0); Eosinophils # (auto) 0.1 10 ^3/uL (0-0.8); Hematocrit 29.6 % (41.0-53.0); Hemoglobin 9.8 g/dL (13.5-17.5); Lymphocytes # (auto) 0.8 10 ^3/uL (0.4-5.4); Lymphocytes % (auto) 8.2 % (10.0-50.0); Mean Corpuscular Hemoglobin 28.3 pg (28.0-32.0); Mean Corpuscular Hgb Conc. 33.2 g/dL (32.0-36.0); Mean Corpuscular Volume 85.2 fL (80.0-100.0); Monocytes # (auto) 1.2 10 ^3/uL (0-1.3); Monocytes % (auto) 11.9 % (0.0-12.0); Neutrophils % (auto) 78.3 % (37.0-80.0); Nucleated Red Blood Cells % 0.1 %; Platelet Count (auto) 112 10^3/uL (140-450); Red Blood Cells 3.47 10^6/uL (4.5-5.90); Red Cell Distribution Width 17.4 % (11.8-14.3); White Blood Cell 10.2 10^3/uL (4.4-10.8)
[2024-01-25 05:26] LABS: Anion Gap 10 (5-15); Carbon Dioxide 28 mmol/L (20-31); Chloride 96 mmol/L (98-107); Sodium 134 mmol/L (136-145)
[2024-01-25 05:27] LABS: Calcium 9.9 mg/dL (8.7-10.4)
[2024-01-25 05:32] LABS: BUN/Creatinine Ratio 8.6 (10.0-20.0); Glucose 105 mg/dL (74-106)
[2024-01-25 05:34] LABS: Blood Urea Nitrogen 49 mg/dL (9-23)
[2024-01-26] VITALS (102 sets, daily range): BP systolic 80–118; BP diastolic 45–72; PULSE 70–95; RESP 11–40; TEMP 97.4–98.3; O2SAT 90–100
[2024-01-26 05:03] LABS: Basophils # (auto) 0.1 10 ^3/uL (0-0.2); Basophils % (auto) 0.3 % (0.0-2.0); Eosinophils # (auto) 0.1 10 ^3/uL (0-0.8); Eosinophils % (auto) 0.7 % (0.0-7.0); Hematocrit 29.5 % (41.0-53.0); Hemoglobin 9.7 g/dL (13.5-17.5); Lymphocytes # (auto) 1.3 10 ^3/uL (0.4-5.4); Lymphocytes % (auto) 6.2 % (10.0-50.0); Mean Corpuscular Hemoglobin 28.3 pg (28.0-32.0); Mean Corpuscular Hgb Conc. 32.9 g/dL (32.0-36.0); Mean Corpuscular Volume 86.1 fL (80.0-100.0); Monocytes # (auto) 2.4 10 ^3/uL (0-1.3); Monocytes % (auto) 11.6 % (0.0-12.0); Neutrophils # (auto) 16.6 10 ^3/uL (1.6-8.6); Neutrophils % (auto) 81.2 % (37.0-80.0); Platelet Count (auto) 189 10^3/uL (140-450); Red Blood Cells 3.43 10^6/uL (4.5-5.90); Red Cell Distribution Width 17.5 % (11.8-14.3); White Blood Cell 20.5 10^3/uL (4.4-10.8)
[2024-01-26 05:19] LABS: Chloride 96 mmol/L (98-107); Potassium 4.3 mmol/L (3.5-5.1); Sodium 133 mmol/L (136-145)
[2024-01-26 05:20] LABS: Anion Gap 12 (5-15); Carbon Dioxide 25 mmol/L (20-31)
[2024-01-26 05:25] LABS: BUN/Creatinine Ratio 9.2 (10.0-20.0); Glucose 102 mg/dL (74-106)
[2024-01-26 05:26] LABS: Blood Urea Nitrogen 69 mg/dL (9-23); Magnesium 2.2 mg/dL (1.6-2.6)
[2024-01-26 05:27] LABS: Albumin 3.8 g/dL (3.2-4.8); Phosphorus 3.5 mg/dL (2.4-5.1)
[2024-01-26] MEDS: PIPERACILLIN-TAZOB 3.375GM 100 ML IV SCH (22:47)
[2024-01-26] MEDS: EPOETIN ALFA-EPBX 4,000 UNIT/ML VIAL SC ONE (22:47)
[2024-01-26] MEDS: HEPARIN SODIUM (PORCINE) 5000 UNITS/ML 1ML VIAL SC SCH (23:49)
[2024-01-27] VITALS (97 sets, daily range): BP systolic 82–117; BP diastolic 52–73; PULSE 74–94; RESP 14–36; TEMP 96.8–98.6; O2SAT 86–100
[2024-01-27 01:52] LABS: Base Excess 2.4 mmol/L (-2.0-3.0)
[2024-01-27 05:24] LABS: Hematocrit 32.8 % (41.0-53.0); Hemoglobin 10.6 g/dL (13.5-17.5); Mean Corpuscular Hemoglobin 27.7 pg (28.0-32.0); Mean Corpuscular Hgb Conc. 32.4 g/dL (32.0-36.0); Mean Corpuscular Volume 85.5 fL (80.0-100.0); Platelet Count (auto) 306 10^3/uL (140-450); Red Blood Cells 3.83 10^6/uL (4.5-5.90); Red Cell Distribution Width 17.5 % (11.8-14.3)
[2024-01-27 05:28] LABS: Band Neutrophils % (manual) 0; Basophils % (manual) 0 (0.0-2.0); Blast Cells 0; Metamyelocytes % 0; Myelocytes % 0; Promyelocytes % 0; Reactive Lymphocytes 0
[2024-01-27 05:56] LABS: Albumin 3.9 g/dL (3.2-4.8); Alkaline Phosphatase 229 U/L (46-116); Anion Gap 11 (5-15); Aspartate Aminotransferase 17 U/L (13-40); BUN/Creatinine Ratio 8.1 (10.0-20.0); Calcium 9.6 mg/dL (8.7-10.4); Carbon Dioxide 27 mmol/L (20-31); Chloride 100 mmol/L (98-107); Glucose 114 mg/dL (74-106); Potassium 4.2 mmol/L (3.5-5.1)
[2024-01-27 05:57] LABS: Bilirubin, Total 1.3 mg/dL (0.2-1.0); Total Protein 7.1 g/dL (5.7-8.2)
[2024-01-27 05:59] LABS: Alanine Aminotransferase < 9 U/L (7-40); Blood Urea Nitrogen 39 mg/dL (9-23); Sodium 138 mmol/L (136-145)
[2024-01-27 06:21] LABS: Eosinophils % (manual) 2 (0-7); Lymphocytes % (manual) 10 (10.0-50.0); Monocytes % (manual) 6 (0-12); Platelet Estimate Adequate
[2024-01-27] MEDS: MIDODRINE HCL 10 MG TAB PO SCH (17:23)
[2024-01-28] VITALS (101 sets, daily range): BP systolic 81–127; BP diastolic 44–87; PULSE 59–98; RESP 12–37; TEMP 97.6–98.6; O2SAT 88–100
[2024-01-28 06:49] LABS: Basophils # (auto) 0.2 10 ^3/uL (0-0.2); Basophils % (auto) 0.7 % (0.0-2.0); Eosinophils # (auto) 0.4 10 ^3/uL (0-0.8); Eosinophils % (auto) 1.5 % (0.0-7.0); Hematocrit 32.3 % (41.0-53.0); Hemoglobin 10.4 g/dL (13.5-17.5); Lymphocytes # (auto) 1.6 10 ^3/uL (0.4-5.4); Lymphocytes % (auto) 6.4 % (10.0-50.0); Mean Corpuscular Hemoglobin 27.9 pg (28.0-32.0); Mean Corpuscular Hgb Conc. 32.2 g/dL (32.0-36.0); Mean Corpuscular Volume 86.6 fL (80.0-100.0); Monocytes # (auto) 2.5 10 ^3/uL (0-1.3); Monocytes % (auto) 10.1 % (0.0-12.0); Neutrophils # (auto) 20.1 10 ^3/uL (1.6-8.6); Neutrophils % (auto) 81.3 % (37.0-80.0); Platelet Count (auto) 372 10^3/uL (140-450); Red Blood Cells 3.73 10^6/uL (4.5-5.90); White Blood Cell 24.7 10^3/uL (4.4-10.8)
[2024-01-28 06:55] LABS: Alanine Aminotransferase < 9 U/L (7-40); Albumin 3.7 g/dL (3.2-4.8); Alkaline Phosphatase 209 U/L (46-116); Anion Gap 9 (5-15); Aspartate Aminotransferase 12 U/L (13-40); BUN/Creatinine Ratio 8.2 (10.0-20.0); Blood Urea Nitrogen 33 mg/dL (9-23); Calcium 9.6 mg/dL (8.7-10.4); Carbon Dioxide 28 mmol/L (20-31); Chloride 101 mmol/L (98-107); Glucose 86 mg/dL (74-106); Magnesium 2.3 mg/dL (1.6-2.6); Potassium 4.4 mmol/L (3.5-5.1); Sodium 138 mmol/L (136-145); Total Protein 7.3 g/dL (5.7-8.2)
[2024-01-28] MEDS ORDERED: VANCOMYCIN 500 MG in D5W 5% 100 ML IV ONE (11:00)
[2024-01-28] MEDS ORDERED: LIDOCAINE VISCOUS 2% 15ML UD MT ONE (12:15)
[2024-01-28] MEDS: VANCOMYCIN 750mg/150ml 150 ML IV ONE (12:56)
[2024-01-28] MEDS: MIDAZOLAM HCL 2MG/2ML 2ml VIAL (1mg/ml) IV ONE ×2 (12:56→12:57)
[2024-01-28] MEDS: LIDOCAINE VISCOUS 2% 15ML UD PO ONE (12:57)
[2024-01-28] MEDS: fentaNYL CITRATE 100 MCG/2 ML VL IV ONE ×2 (12:57)
[2024-01-29] VITALS (65 sets, daily range): BP systolic 86–114; BP diastolic 51–77; PULSE 66–82; RESP 17–32; TEMP 97.6–99.2; O2SAT 90–99
[2024-01-29 05:01] LABS: Basophils # (auto) 0.2 10 ^3/uL (0-0.2); Basophils % (auto) 0.9 % (0.0-2.0); Eosinophils # (auto) 0.3 10 ^3/uL (0-0.8); Eosinophils % (auto) 1.9 % (0.0-7.0); Hematocrit 31.2 % (41.0-53.0); Hemoglobin 10.1 g/dL (13.5-17.5); Lymphocytes # (auto) 1.2 10 ^3/uL (0.4-5.4); Mean Corpuscular Hemoglobin 28.1 pg (28.0-32.0); Mean Corpuscular Hgb Conc. 32.3 g/dL (32.0-36.0); Mean Corpuscular Volume 87.1 fL (80.0-100.0); Monocytes # (auto) 1.4 10 ^3/uL (0-1.3); Monocytes % (auto) 8.3 % (0.0-12.0); Neutrophils # (auto) 14.1 10 ^3/uL (1.6-8.6); Neutrophils % (auto) 81.9 % (37.0-80.0); Platelet Count (auto) 325 10^3/uL (140-450); Red Blood Cells 3.58 10^6/uL (4.5-5.90); Red Cell Distribution Width 17.4 % (11.8-14.3); White Blood Cell 17.2 10^3/uL (4.4-10.8)
[2024-01-29 05:18] LABS: Albumin 3.5 g/dL (3.2-4.8); Alkaline Phosphatase 172 U/L (46-116); Anion Gap 9 (5-15); Aspartate Aminotransferase 9 U/L (13-40); BUN/Creatinine Ratio 8.1 (10.0-20.0); Blood Urea Nitrogen 40 mg/dL (9-23); Calcium 9.6 mg/dL (8.7-10.4); Carbon Dioxide 26 mmol/L (20-31); Chloride 101 mmol/L (98-107); Glucose 101 mg/dL (74-106); Magnesium 2.3 mg/dL (1.6-2.6); Potassium 5.4 mmol/L (3.5-5.1); Sodium 136 mmol/L (136-145)
[2024-01-29 05:19] LABS: Bilirubin, Total 0.9 mg/dL (0.2-1.0); Total Protein 7.2 g/dL (5.7-8.2)
[2024-01-29] MEDS: MIDODRINE HCL 10 MG TAB PO SCH ×2 (05:25→12:00)
[2024-01-29 05:28] LABS: Alanine Aminotransferase < 9 U/L (7-40)
[2024-01-29 11:02] LABS: Base Excess -0.6 mmol/L (-2.0-3.0)
[2024-01-29] MEDS ORDERED: SODIUM ZIRCONIUM CYCL 10 GM PAK PO ONE ×2 (12:00→15:30)
[2024-01-29] MEDS: SODIUM ZIRCONIUM CYCL 10 GM PAK ONE (12:31)
[2024-01-29] MEDS: SODIUM ZIRCONIUM CYCL 10 GM PAK PO ONE ×2 (12:33→17:34)
[2024-01-29] MEDS: MIDODRINE HCL 10 MG TAB PO ONE (12:33)
[2024-01-29 15:02] LABS: Chloride 99 mmol/L (98-107); Sodium 134 mmol/L (136-145)
[2024-01-29 15:03] LABS: Anion Gap 10 (5-15); Calcium 9.6 mg/dL (8.7-10.4); Carbon Dioxide 25 mmol/L (20-31)
[2024-01-29 15:08] LABS: BUN/Creatinine Ratio 8.7 (10.0-20.0); Blood Urea Nitrogen 47 mg/dL (9-23); Glucose 88 mg/dL (74-106)
[2024-01-29 15:09] LABS: Potassium 5.8 mmol/L (3.5-5.1)
[2024-01-30] VITALS (24 sets, daily range): BP systolic 90–126; BP diastolic 55–82; PULSE 67–90; RESP 17–36; TEMP 97.9–100.3; O2SAT 92–100
[2024-01-30 05:03] LABS: Basophils # (auto) 0.2 10 ^3/uL (0-0.2); Eosinophils # (auto) 0.2 10 ^3/uL (0-0.8); Eosinophils % (auto) 1.4 % (0.0-7.0); Hematocrit 29.4 % (41.0-53.0); Hemoglobin 9.6 g/dL (13.5-17.5); Lymphocytes # (auto) 1.7 10 ^3/uL (0.4-5.4); Lymphocytes % (auto) 10.4 % (10.0-50.0); Mean Corpuscular Hgb Conc. 32.6 g/dL (32.0-36.0); Mean Corpuscular Volume 86.1 fL (80.0-100.0); Monocytes # (auto) 1.4 10 ^3/uL (0-1.3); Monocytes % (auto) 8.7 % (0.0-12.0); Neutrophils # (auto) 12.7 10 ^3/uL (1.6-8.6); Neutrophils % (auto) 78.5 % (37.0-80.0); Nucleated Red Blood Cells % 0.1 %; Platelet Count (auto) 328 10^3/uL (140-450); Red Blood Cells 3.42 10^6/uL (4.5-5.90); Red Cell Distribution Width 17.3 % (11.8-14.3); White Blood Cell 16.2 10^3/uL (4.4-10.8)
[2024-01-30 05:22] LABS: Albumin 3.5 g/dL (3.2-4.8); Alkaline Phosphatase 178 U/L (46-116); Anion Gap 11 (5-15); Aspartate Aminotransferase 9 U/L (13-40); BUN/Creatinine Ratio 7.9 (10.0-20.0); Blood Urea Nitrogen 51 mg/dL (9-23); Calcium 9.3 mg/dL (8.7-10.4); Carbon Dioxide 25 mmol/L (20-31); Chloride 99 mmol/L (98-107); Glucose 83 mg/dL (74-106); Potassium 5.5 mmol/L (3.5-5.1); Sodium 135 mmol/L (136-145)
[2024-01-30 05:23] LABS: Bilirubin, Total 0.7 mg/dL (0.2-1.0); Total Protein 7.2 g/dL (5.7-8.2)
[2024-01-30 05:28] LABS: Alanine Aminotransferase < 9 U/L (7-40)
[2024-01-30] MEDS: SODIUM CHL 0.9% 1000 ML BAG XX ONE (07:00)
[2024-01-30] MEDS: ALBUMIN 25% 100 ML IV PRN (09:22)
[2024-01-30] MEDS: EPOETIN ALFA-EPBX 4,000 UNIT/ML VIAL SC ONE (21:19)
[2024-01-30] MEDS: MELATONIN 5 MG TAB PO SCH (21:32)
[2024-01-31] VITALS (24 sets, daily range): BP systolic 97–121; BP diastolic 58–83; PULSE 65–77; RESP 14–30; TEMP 98.1–99.2; O2SAT 92–100
[2024-01-31 07:26] LABS: Anion Gap 9 (5-15); Carbon Dioxide 29 mmol/L (20-31); Chloride 98 mmol/L (98-107); Sodium 136 mmol/L (136-145)
[2024-01-31 07:27] LABS: Calcium 10.3 mg/dL (8.7-10.4)
[2024-01-31 07:31] LABS: Glucose 100 mg/dL (74-106)
[2024-01-31 07:32] LABS: BUN/Creatinine Ratio 5.9 (10.0-20.0)
[2024-01-31 07:37] LABS: Blood Urea Nitrogen 28 mg/dL (9-23)
[2024-01-31] MEDS: PANTOPRAZOLE 40 MG TAB PO SCH (17:44)
[2024-02-01] VITALS (26 sets, daily range): BP systolic 84–120; BP diastolic 38–79; PULSE 63–91; RESP 12–31; TEMP 97.6–99.1; O2SAT 77–100
[2024-02-01] MEDS: SODIUM CHL 0.9% 1000 ML BAG XX ONE (07:00)
[2024-02-01] MEDS: SODIUM ZIRCONIUM CYCL 10 GM PAK PO SCH (09:29)
[2024-02-01 11:37] LABS: Basophils # (auto) 0.1 10 ^3/uL (0-0.2); Basophils % (auto) 0.9 % (0.0-2.0); Eosinophils # (auto) 0.1 10 ^3/uL (0-0.8); Eosinophils % (auto) 0.9 % (0.0-7.0); Hemoglobin 10.4 g/dL (13.5-17.5); Lymphocytes # (auto) 1.2 10 ^3/uL (0.4-5.4); Lymphocytes % (auto) 8.7 % (10.0-50.0); Mean Corpuscular Hemoglobin 27.7 pg (28.0-32.0); Mean Corpuscular Hgb Conc. 31.6 g/dL (32.0-36.0); Mean Corpuscular Volume 87.6 fL (80.0-100.0); Monocytes # (auto) 1.2 10 ^3/uL (0-1.3); Monocytes % (auto) 8.4 % (0.0-12.0); Neutrophils # (auto) 11.1 10 ^3/uL (1.6-8.6); Neutrophils % (auto) 81.1 % (37.0-80.0); Nucleated Red Blood Cells % 0.1 %; Platelet Count (auto) 234 10^3/uL (140-450); Red Blood Cells 3.77 10^6/uL (4.5-5.90); Red Cell Distribution Width 17.9 % (11.8-14.3); White Blood Cell 13.7 10^3/uL (4.4-10.8)
[2024-02-01 11:42] LABS: Chloride 97 mmol/L (98-107)
[2024-02-01 11:43] LABS: Anion Gap 10 (5-15); Calcium 9.8 mg/dL (8.7-10.4); Carbon Dioxide 24 mmol/L (20-31)
[2024-02-01 11:48] LABS: Glucose 99 mg/dL (74-106)
[2024-02-01 11:53] LABS: Blood Urea Nitrogen 40 mg/dL (9-23); Sodium 131 mmol/L (136-145)
[2024-02-01] MEDS ORDERED: VANCOMYCIN PER PHARMACY 0 MG IV SCH (17:45)
[2024-02-01] MEDS: EPOETIN ALFA-EPBX 10,000 UNIT/1ML VIAL SC ONE (22:05)
[2024-02-02] VITALS (11 sets, daily range): BP systolic 83–127; BP diastolic 50–71; PULSE 71–83; RESP 16–27; TEMP 97.4–98.4; O2SAT 95–100
[2024-02-02 06:28] LABS: Basophils # (auto) 0.1 10 ^3/uL (0-0.2); Basophils % (auto) 0.8 % (0.0-2.0); Eosinophils # (auto) 0.1 10 ^3/uL (0-0.8); Eosinophils % (auto) 1.1 % (0.0-7.0); Hematocrit 29.9 % (41.0-53.0); Hemoglobin 9.7 g/dL (13.5-17.5); Lymphocytes # (auto) 1.2 10 ^3/uL (0.4-5.4); Lymphocytes % (auto) 9.3 % (10.0-50.0); Mean Corpuscular Hemoglobin 28.2 pg (28.0-32.0); Mean Corpuscular Hgb Conc. 32.4 g/dL (32.0-36.0); Mean Corpuscular Volume 87.1 fL (80.0-100.0); Monocytes # (auto) 1.1 10 ^3/uL (0-1.3); Monocytes % (auto) 8.3 % (0.0-12.0); Neutrophils # (auto) 10.5 10 ^3/uL (1.6-8.6); Neutrophils % (auto) 80.5 % (37.0-80.0); Nucleated Red Blood Cells % 0.1 %; Platelet Count (auto) 205 10^3/uL (140-450); Red Blood Cells 3.43 10^6/uL (4.5-5.90); White Blood Cell 13.1 10^3/uL (4.4-10.8)
[2024-02-02 06:38] LABS: Chloride 99 mmol/L (98-107); Potassium 4.3 mmol/L (3.5-5.1); Sodium 133 mmol/L (136-145)
[2024-02-02 06:39] LABS: Anion Gap 7 (5-15); Calcium 9.6 mg/dL (8.7-10.4); Carbon Dioxide 27 mmol/L (20-31)
[2024-02-02 06:44] LABS: BUN/Creatinine Ratio 5.4 (10.0-20.0); Glucose 111 mg/dL (74-106)
[2024-02-02 06:46] LABS: Blood Urea Nitrogen 24 mg/dL (9-23)
[2024-02-02] MEDS: cefTRIAXone 1GM/50ML D5W 50 ML IV SCH (08:30)
[2024-02-02] MEDS: VANCOMYCIN 750mg/150ml 150 ML IV ONE (14:57)
[2024-02-02] MEDS: HYDROcodone-ACET 5/325MG TAB PO ONE (17:52)
[2024-02-02] MEDS: MELATONIN 5 MG TAB PO SCH (22:05)
[2024-02-03] VITALS (8 sets, daily range): BP systolic 102–149; BP diastolic 68–83; PULSE 69–83; RESP 16–22; TEMP 96.3–98.7; O2SAT 93–98
[2024-02-03 08:28] LABS: Basophils # (auto) 0.1 10 ^3/uL (0-0.2); Eosinophils # (auto) 0.2 10 ^3/uL (0-0.8); Eosinophils % (auto) 1.4 % (0.0-7.0); Hematocrit 34.1 % (41.0-53.0); Hemoglobin 11.1 g/dL (13.5-17.5); Lymphocytes # (auto) 1.7 10 ^3/uL (0.4-5.4); Lymphocytes % (auto) 11.4 % (10.0-50.0); Mean Corpuscular Hemoglobin 27.8 pg (28.0-32.0); Mean Corpuscular Hgb Conc. 32.4 g/dL (32.0-36.0); Mean Corpuscular Volume 85.8 fL (80.0-100.0); Monocytes # (auto) 1.3 10 ^3/uL (0-1.3); Monocytes % (auto) 8.6 % (0.0-12.0); Neutrophils # (auto) 11.6 10 ^3/uL (1.6-8.6); Neutrophils % (auto) 77.6 % (37.0-80.0); Nucleated Red Blood Cells % 0.1 %; Platelet Count (auto) 210 10^3/uL (140-450); Red Blood Cells 3.98 10^6/uL (4.5-5.90); Red Cell Distribution Width 17.9 % (11.8-14.3); White Blood Cell 14.9 10^3/uL (4.4-10.8)
[2024-02-03 09:29] LABS: Platelet Estimate Adequate
[2024-02-03] MEDS: SODIUM ZIRCONIUM CYCL 10 GM PAK PO SCH (10:45)
[2024-02-03] MEDS: MIDODRINE HCL 10 MG TAB PO SCH (12:24)
[2024-02-04] VITALS (7 sets, daily range): BP systolic 121–138; BP diastolic 61–79; PULSE 73–82; RESP 16–18; TEMP 97.9–98.6; O2SAT 95–98
[2024-02-04] MEDS ORDERED: SODIUM CHL 0.9% 1000 ML BAG XX ONE (07:00)
[2024-02-04 11:23] LABS: Basophils # (auto) 0.2 10 ^3/uL (0-0.2); Basophils % (auto) 1.5 % (0.0-2.0); Eosinophils # (auto) 0.1 10 ^3/uL (0-0.8); Eosinophils % (auto) 1.3 % (0.0-7.0); Hematocrit 39.6 % (41.0-53.0); Hemoglobin 12.4 g/dL (13.5-17.5); Lymphocytes # (auto) 1.6 10 ^3/uL (0.4-5.4); Lymphocytes % (auto) 14.8 % (10.0-50.0); Mean Corpuscular Hemoglobin 26.8 pg (28.0-32.0); Mean Corpuscular Hgb Conc. 31.4 g/dL (32.0-36.0); Mean Corpuscular Volume 85.2 fL (80.0-100.0); Monocytes # (auto) 0.8 10 ^3/uL (0-1.3); Monocytes % (auto) 7.7 % (0.0-12.0); Neutrophils % (auto) 74.7 % (37.0-80.0); Platelet Count (auto) 179 10^3/uL (140-450); Red Blood Cells 4.65 10^6/uL (4.5-5.90); Red Cell Distribution Width 17.8 % (11.8-14.3); White Blood Cell 10.8 10^3/uL (4.4-10.8)
[2024-02-04] MEDS ORDERED: MID10T PO (13:47)
[2024-02-04] MEDS ORDERED: MELA5TAB16 PO (13:47)
== END 2024-02-04 19:24 | disposition home health service (06) | DRG 871 ==
LOC: EDBD 16:12 → ER 16:12 → OVERFLOW 22:37 → WEST WING 01-16 23:11 → DOU IN ICU 01-21 19:53 → ICU CENTRL 01-22 01:11 → DOU IN ICU 01-31 15:06 → TELE-EAST 02-02 02:13
PROVIDERS: ADMIT Nurse Practitioner; ATTEND Student in an Organized Health Care Education/Training Program
PROC: 5A1D70Z Performance of Urinary Filtration, Intermittent, Less than 6 Hours Per Day (ICD-10-PCS; 2024-01-16)
PROC: 5A1D70Z Performance of Urinary Filtration, Intermittent, Less than 6 Hours Per Day (ICD-10-PCS; 2024-01-18)
PROC: 5A1D70Z Performance of Urinary Filtration, Intermittent, Less than 6 Hours Per Day (ICD-10-PCS; 2024-01-20)
PROC: 02HV33Z Insertion of Infusion Device into Superior Vena Cava, Percutaneous Approach (ICD-10-PCS; principal; 2024-01-22)
PROC: B548ZZA Ultrasonography of Superior Vena Cava, Guidance (ICD-10-PCS; 2024-01-22)
PROC: 5A1D70Z Performance of Urinary Filtration, Intermittent, Less than 6 Hours Per Day (ICD-10-PCS; 2024-01-22)
PROC: 5A09357 Assistance with Respiratory Ventilation, Less than 24 Consecutive Hours, Continuous Positive Airway Pressure (ICD-10-PCS; 2024-01-23)
PROC: 5A09357 Assistance with Respiratory Ventilation, Less than 24 Consecutive Hours, Continuous Positive Airway Pressure (ICD-10-PCS; 2024-01-24)
PROC: 5A1D70Z Performance of Urinary Filtration, Intermittent, Less than 6 Hours Per Day (ICD-10-PCS; 2024-01-24)
PROC: 5A09357 Assistance with Respiratory Ventilation, Less than 24 Consecutive Hours, Continuous Positive Airway Pressure (ICD-10-PCS; 2024-01-25)
PROC: 5A09357 Assistance with Respiratory Ventilation, Less than 24 Consecutive Hours, Continuous Positive Airway Pressure (ICD-10-PCS; 2024-01-26)
PROC: 5A1D70Z Performance of Urinary Filtration, Intermittent, Less than 6 Hours Per Day (ICD-10-PCS; 2024-01-26)
PROC: B24BZZ4 Ultrasonography of Heart with Aorta, Transesophageal (ICD-10-PCS; 2024-01-28)
PROC: 5A1D70Z Performance of Urinary Filtration, Intermittent, Less than 6 Hours Per Day (ICD-10-PCS; 2024-01-28)
PROC: 5A1D70Z Performance of Urinary Filtration, Intermittent, Less than 6 Hours Per Day (ICD-10-PCS; 2024-01-30)
PROC: 5A1D70Z Performance of Urinary Filtration, Intermittent, Less than 6 Hours Per Day (ICD-10-PCS; 2024-02-01)
PROC: 5A1D70Z Performance of Urinary Filtration, Intermittent, Less than 6 Hours Per Day (ICD-10-PCS; 2024-02-04)
DX: A41.02 Sepsis due to Methicillin resistant Staphylococcus aureus (principal); G92.8 Other toxic encephalopathy; J96.22 Acute and chronic respiratory failure with hypercapnia; N18.6 End stage renal disease; J15.212 Pneumonia due to Methicillin resistant Staphylococcus aureus; J96.21 Acute and chronic respiratory failure with hypoxia; R65.21 Severe sepsis with septic shock; I13.2 Hypertensive heart and chronic kidney disease with heart failure and with stage 5 chronic kidney disease, or end stage renal disease; J44.1 Chronic obstructive pulmonary disease with (acute) exacerbation; E44.0 Moderate protein-calorie malnutrition; E87.20 Acidosis, unspecified; J44.0 Chronic obstructive pulmonary disease with (acute) lower respiratory infection; J98.11 Atelectasis; F05 Delirium due to known physiological condition; R57.9 Shock, unspecified; Z68.1 Body mass index [BMI] 19.9 or less, adult; I50.32 Chronic diastolic (congestive) heart failure; T86.11 Kidney transplant rejection; E87.79 Other fluid overload; E87.5 Hyperkalemia; D63.1 Anemia in chronic kidney disease; R59.0 Localized enlarged lymph nodes; I25.10 Atherosclerotic heart disease of native coronary artery without angina pectoris; D69.6 Thrombocytopenia, unspecified; E11.22 Type 2 diabetes mellitus with diabetic chronic kidney disease; E11.40 Type 2 diabetes mellitus with diabetic neuropathy, unspecified; K29.70 Gastritis, unspecified, without bleeding; K29.80 Duodenitis without bleeding; B96.1 Klebsiella pneumoniae [K. pneumoniae] as the cause of diseases classified elsewhere; K21.9 Gastro-esophageal reflux disease without esophagitis; Z99.2 Dependence on renal dialysis; Z85.51 Personal history of malignant neoplasm of bladder; Z90.5 Acquired absence of kidney; I25.2 Old myocardial infarction; Z88.0 Allergy status to penicillin; Z88.1 Allergy status to other antibiotic agents; Z86.73 Personal history of transient ischemic attack (TIA), and cerebral infarction without residual deficits; Z87.891 Personal history of nicotine dependence; Z95.5 Presence of coronary angioplasty implant and graft; Z99.81 Dependence on supplemental oxygen
CPT/HCPCS: 36415; 36600; 71045; 71275; 73200; 74176; 76705; 80048; 80053; 80074; 80202; 81003; 82040; 82140; 82565; 82805; 82962; 83605; 83690; 83735; 84100; 84484; 85007; 85025; 85027; 85610; 86592; 86703; 86803; 87040; 87077; 87081; 87186; 87205; 87340; 90935; 93005; 93306; 93318; 94660; 97110; 97163; 97530; G0378; J1642; J1885; J2250; J2470; J2543; P9047